=== PATIENT | male | born 1965 | race Caucasian/White ===

== ENCOUNTER 2022-11-15 19:21 | Emergency (ER) | payer SELFPAY ==
--- NOTE | 2022-11-15 19:22 | ECG_ITS ---
APPROVED REPORT Exam: Resting ECG HR:102 bpm ECG Measurements Heart Rate 102 AXES MI 119 P 72 QRSd 97 QRS 75 QT 317 T 73 QTc 376 Conclusion SINUS TACHYCARDIA WITH SHORT MI INTERVAL NONSPECIFIC T-WAVE ABNORMALITY ABNORMAL RHYTHM ECG UNCONFIRMED REPORT Electronically signed by : Kris Klein MD 11/16/2022 09:26:16
[2022-11-15 19:26] VITALS: BP 155/96; PULSE 100; RESP 21; TEMP 37.9; O2SAT 92; BMI 28.3
[2022-11-15 19:30] VITALS: BP 142/92; PULSE 92; RESP 22; O2SAT 92
--- NOTE | 2022-11-15 19:31 | XR_ITS ---
PROCEDURE INFORMATION: Exam: XR Chest Exam date and time: 11/15/2022 7:36 PM Age: 56 years old Clinical indication: Pain; Angina pectoris; Additional info: Cp TECHNIQUE: Imaging protocol: Radiologic exam of the chest. Views: 2 views. COMPARISON: No relevant prior studies available. FINDINGS: Lungs: Flattening of the diaphragms on lateral projection. Interstitial coarsening with streaky opacity at the lateral left lung base. No consolidation. Pleural spaces: No pneumothorax. Heart/Mediastinum: No cardiomegaly. Bones/joints: No acute fracture. IMPRESSION: Interstitial coarsening with streaky opacity at the lateral left lung base which may be atelectatic however subtle pneumonitis should be clinically excluded.
[2022-11-15 19:42] LABS: Coronavirus 19, PCR Not Detected (NotDetected); Influenza A, PCR Not Detected (NotDetected); Influenza B, PCR Not Detected (NotDetected)
--- NOTE | 2022-11-15 19:44 | PC.NURSE ---
Pt gone to RAD via wheelchair
[2022-11-15 19:46] LABS: Basophils % 0.2 % (0.1-2.0); Eosinophils # 0.1 K/mm3 (0.0-0.4); Eosinophils % 0.4 % (0.1-12.0); Hematocrit 45.5 % (42.0-52.0); Hemoglobin 14.6 g/dL (14.1-18.0); Lymphocytes # 1.4 K/mm3 (0.7-4.5); Lymphocytes % 8.7 % (10-50); Mean Corpuscular HGB Conc 32.2 g/dL (31.8-35.4); Mean Corpuscular Hemoglobin 28.2 pg (27.0-31.2); Mean Corpuscular Volume 87.7 fl (80-94); Mean Platelet Volume 7.6 fl (7.4-10.4); Monocytes # 0.9 K/mm3 (0.1-1.0); Monocytes % 5.9 % (1.7-9.3); Neutrophils # 13.3 K/mm3 (1.8-7.8); Neutrophils % 84.8 % (37.0-80.0); Platelet Count 274 K/mm3 (142-424); Red Blood Count 5.18 M/mm3 (4.60-6.20); Red Cell Distribution Width 14.9 % (11.5-17.5); White Blood Count 15.7 K/mm3 (4.8-10.8)
--- NOTE | 2022-11-15 19:47 | PC.NURSE ---
Pt returned from RAD
[2022-11-15 19:48] LABS: Chloride 104 mmol/L (98-107); Potassium 3.7 mmoL/L (3.5-5.1); Sodium 137 mmol/L (136-145)
[2022-11-15 19:50] LABS: Blood Urea Nitrogen 10 mg/dl (9-20); Creatinine Clearance Estimated 111 mL/min (50-200); Estimated Glomerular Filt Rate 88 ml/min (>60); GFR (African American) 106 ML/MIN (>60); MANUAL DIFFERENTIAL MANUAL DIFFERENTIAL (MANUAL DIFF)
--- NOTE | 2022-11-15 19:50 | PC.NURSE ---
RT at BS to administer breathing treatment
[2022-11-15 19:51] LABS: Alanine Aminotransferase 31 U/L (12-78); Albumin Level 4.3 g/dl (3.5-5.0); Albumin/Globulin Ratio 1.1 (1.1-1.8); Alkaline Phosphatase 60 U/L (38-126); Anion Gap 13.7 mEq/L (5-15); Aspartate Amino Transferase 26 U/L (17-59); Bilirubin,Total 0.9 mg/dl (0.2-1.3); Calcium 9.4 mg/dl (8.4-10.2); Carbon Dioxide 23 mmol/L (22.0-30.0); Glucose 117 mg/dl (74-100); Total Protein,Serum 8.3 g/dl (6.3-8.2)
[2022-11-15 19:52] LABS: Lactic Acid 0.7 mmol/L (0.7-2.1)
[2022-11-15 20:00] VITALS: BP 153/98; PULSE 97; RESP 21; O2SAT 95
[2022-11-15 20:05] LABS: Troponin I < 0.01 ng/ml (0.00-0.034)
[2022-11-15 20:05] LABS: Strep Scrn Group A (Rapid) Negative (Negative)
[2022-11-15 20:07] VITALS: PULSE 94
[2022-11-15 20:07] LABS: Eosinophils % 1 % (0-3); Lymphocytes % 10 % (10-50); Monocytes % 2 % (2-9); Neutrophils % 87 % (42-76); Platelet Estimate Normal; RBC Morphology Normal; Total Cells Counted 100
--- NOTE | 2022-11-15 20:10 | HMH.EDGENADL ---
Discharge Plan Disposition Patient Disposition: Home, Self-Care Condition: Good Referrals Follow up/Referrals: Kristyn Valle MD [Primary Care Provider] - See instructions Activity Restrictions/Add. Instructions Additional Instructions/Restrictions: Motrin/Tylenol as needed. Stay well-hydrated. PCP follow-up tomorrow. Clinical Impressions Clinical Impression: Acute viral syndrome Discharge ED Provider: Russell Floyd General Adult HPI General Chief complaint: Chest Pain Stated complaint: CP Time Seen by Provider: 11/15/22 19:50 Mode of Arrival: Ambulatory Source of Information: Patient Limitations: No Limitations Description of Symptoms (Recalled from ER Triage Doc. by RN): pt c/o a productive cough, congestion, N/V/D and L sided chest pain (09/18). pt states this has been ongoing since this am. pt has a hx of an MA from 07/18/22 History of Present Illness HPI narrative: 56yo M presents to the ER secondary to general malaise, body aches. Reports symptoms began last night. Also noted left lower quadrant abdominal pain. Reports nausea with vomiting. Denies diarrhea. Reports his only medical disease is hypertension. States intolerant of p.o. intake prior to arrival. Related Data Allergies Allergy/AdvReac Type Severity Reaction Status Date / Time No Known Allergies Allergy Verified 11/15/22 19:31 [facility] Disclaimer: The information contained in this section may have been updated after the patient was seen, as this information can be updated by other users. Medical History (Updated 11/15/22 @ 20:14 by Russell Floyd DO) Hypertension Social History Smoking Status: Never smoker alcohol intake: never current occupational status: other Travel in the last 8 weeks: None ROS Obtained: Yes Systems reviewed as appropriate & no additional complaints except as documented Physical Exam General General appearance: alert and in no apparent distress Head Head exam: atraumatic Eye Eye exam: Present PERRL ENT ENT exam: Present normal oropharynx Neck Neck exam: Present trachea midline Chest Chest inspection: Present normal inspection Respiratory Respiratory exam: Present normal lung sounds bilaterally; Absent respiratory distress Cardiovascular Cardiovascular exam: Present regular rate, normal rhythm and normal heart sounds Abdominal Exam Abdominal exam: Present soft, tenderness (Diffuse, worse left lower quad) and normal bowel sounds; Absent distention Extremities Exam Extremities exam: Present normal capillary refill; Absent tenderness or edema Neurological Exam Neurological exam: Present alert, oriented X3 and CN II-XII intact Psychiatric Psychiatric exam: Present normal affect Skin Skin exam: Present warm Medical Decision Making Medical Records Medical records reviewed: Yes I reviewed the patient's medical records. [place] Inquiry Pt receiving controlled substance: No Vital Signs: 11/15/22 19:26 11/15/22 20:07 11/15/22 20:07 Temperature 100.2 F H Temperature Source Oral Pulse Rate 94 H 94 H Pulse Rate [Left] 100 H Respiratory Rate 21 Blood Pressure Blood Pressure [Right Arm] 155/96 H Blood Pressure Mean [Right Arm] 115 Blood Pressure Source [Right Arm] Automatic Cuff Blood Pressure Position [Right Arm] Sitting 02 Sat by Pulse Oximetry 92 L Oxygen Delivery Method 11/15/22 19:30 11/15/22 20:00 11/15/22 20:30 Temperature Temperature Source Pulse Rate 92 H 97 H 93 H Pulse Rate [Left] Respiratory Rate 22 21 20 Blood Pressure 142/92 H 153/98 H 152/95 H Blood Pressure [Right Arm] Blood Pressure Mean [Right Arm] Blood Pressure Source [Right Arm] Blood Pressure Position [Right Arm] 02 Sat by Pulse Oximetry 92 L 95 92 L Oxygen Delivery Method Room Air Room Air Room Air 11/15/22 20:56 Temperature 98.9 F Temperature Source Oral Pulse Rate 91 H Pulse Rate [Left] Respiratory Ra
[2022-11-15 20:30] VITALS: BP 152/95; PULSE 93; RESP 20; O2SAT 92
[2022-11-15 20:56] VITALS: BP 132/89; PULSE 91; RESP 19; TEMP 37.2; O2SAT 95
== END 2022-11-15 21:08 | disposition home or self-care (01) ==
PROVIDERS: Emergency Provider Family Medicine; PCP Family Medicine
DX: R07.9 Chest pain, unspecified (principal); R10.32 Left lower quadrant pain; R11.2 Nausea with vomiting, unspecified; R19.7 Diarrhea, unspecified; B34.9 Viral infection, unspecified
CPT/HCPCS: 71046; 80053; 83605; 84484; 85007; 85025; 87040; 87430; 87636; 93005; 96361; 96374; 99285; C9803; U0003; U0005

== ENCOUNTER 2023-01-02 08:27 | Emergency (ER) | payer BC, SELFPAY ==
[2023-01-02] VITALS (13 sets, daily range): BP systolic 106–159; BP diastolic 66–101; PULSE 68–102; RESP 14–29; TEMP 36.7; O2SAT 92–96; BMI 27.6
--- NOTE | 2023-01-02 08:27 | ECG_ITS ---
APPROVED REPORT Exam: Resting ECG HR:95 bpm ECG Measurements Heart Rate 95 AXES ID 122 P 76 QRSd 98 QRS 75 QT 320 T 78 QTc 373 Conclusion SINUS RHYTHM NORMAL ECG UNCONFIRMED REPORT Electronically signed by : Kris Klein MD 01/02/2023 21:14:03
--- NOTE | 2023-01-02 08:30 | PC.NURSE ---
ER MD Payton at
--- NOTE | 2023-01-02 08:33 | XR_ITS ---
FINAL REPORT CLINICAL HISTORY: chest pain, SOA, vomiting COMPARISON: 11/15/2022 FINDINGS: There are scattered coarse linear densities, probably due to scar or other chronic changes. There is no evidence of effusion or pneumothorax. Mediastinum is unremarkable. Heart size is normal. IMPRESSION: No acute abnormality. Reviewed, Interpreted and Dictated by Hugo Calderon MD Transcribed by Lauren Dominguez Authenticated and [facility]
--- NOTE | 2023-01-02 08:38 | HMH.EDGENADL ---
Discharge Plan Disposition Patient Disposition: Home, Self-Care Condition: Good Prescriptions Prescriptions: New ondansetron 4 mg tablet,disintegrating 4 mg PO Q8H 4 Days Qty: 12 0RF methocarbamol 750 mg tablet 750 mg PO Q8H PRN (Reason: pain) Qty: 20 0RF Referrals Follow up/Referrals: Kristyn Valle MD [Primary Care Provider] - See instructions Activity Restrictions/Add. Instructions Additional Instructions/Restrictions: You were evaluated in the emergency department today. Please follow-up closely with your primary care provider over the next 48 hours. local superintendent your prescriptions at the pharmacy and take as needed for pain and nausea. You may also take Tylenol and ibuprofen. Return to the emergency department for any new or worsening symptoms. Clinical Impressions Clinical Impression: Acute chest wall pain Chest pain Qualifiers: Chest pain type: unspecified Qualified Code(s): R07.9 - Chest pain, unspecified Vomiting Qualifiers: Vomiting type: unspecified Stand Alone Forms Stand Alone Forms: Work/School Release Instructions Patient Instructions: DI for Atypical Chest Pain, DI for Vomiting -- Adult Discharge ED Provider: Kandy Payton General Adult HPI General Chief complaint: Chest Pain Stated complaint: chest pain Time Seen by Provider: 01/02/23 08:28 Mode of Arrival: Ambulatory Source of Information: Patient Limitations: No Limitations Description of Symptoms (Recalled from ER Triage Doc. by RN): 57 yo M presents to ED with chest pain/pressure. pt reports symptoms began this am. 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 pt reports having hx of OH but no other health concerns. History of Present Illness HPI narrative: This patient is a 57-year-old male who reports a history of heart attack, hypertension, and COPD presenting to the emergency department for evaluation with concern for chest pain/pressure that is substernal. He reports that he first noticed it this morning after vomiting. Per patient's , her mother at home has also been vomiting. He states that it radiated down his left arm. He tried to go to work and drive a bus, but symptoms became worse. It is worse with movement. He also notes headache, shortness of breath, nausea, and vomiting since onset. He states that this feels similar to prior heart attack. He denies any recent fevers or chills. He denies any belly pain, changes in bowel movements, lower extremity swelling, or rashes. He states that he is on a blood thinner but he cannot remember what it is. He had an 81 mg aspirin this morning. Related Data Previous Rx's Medication Instructions Recorded methocarbamol 750 mg tablet 750 mg PO Q8H PRN pain #20 tabs 01/02/23 ondansetron 4 mg disintegrating 4 mg PO Q8H nausea and vomiting 4 01/02/23 tablet days #12 tabs Allergies Allergy/AdvReac Type Severity Reaction Status Date / Time No Known Allergies Allergy Verified 01/02/23 08:34 [facility] Disclaimer: The information contained in this section may have been updated after the patient was seen, as this information can be updated by other users. Medical History Hypertension Social History Smoking Status: Never smoker alcohol intake: never current occupational status: other Travel in the last 8 weeks: None ROS Obtained: Yes All systems reviewed & no additional complaints except as documented 14 point review of systems obtained and negative except as mentioned in HPI. Physical Exam General General appearance: alert, in no apparent distress and anxious Comment: Anxious appearing, uncomfortable appearing Head Head exam: atraumatic and normocephalic Eye Eye exam: Present normal appearance, PERRL and EOMI ENT ENT exam: Present normal exam and normal oropharynx Neck Neck exam: Pres
[2023-01-02 08:43] LABS: Basophils # 0.1 K/mm3 (0-0.2); Basophils % 0.8 % (0.1-2.0); Eosinophils # 0.3 K/mm3 (0.0-0.4); Eosinophils % 3.5 % (0.1-12.0); Hematocrit 42.8 % (42.0-52.0); Hemoglobin 14.1 g/dL (14.1-18.0); Lymphocytes # 1.7 K/mm3 (0.7-4.5); Lymphocytes % 17.6 % (10-50); Mean Corpuscular HGB Conc 32.8 g/dL (31.8-35.4); Mean Corpuscular Volume 91.3 fl (80-94); Mean Platelet Volume 7.6 fl (7.4-10.4); Monocytes # 0.7 K/mm3 (0.1-1.0); Monocytes % 6.7 % (1.7-9.3); Neutrophils # 6.9 K/mm3 (1.8-7.8); Neutrophils % 71.3 % (37.0-80.0); Platelet Count 322 K/mm3 (142-424); Red Blood Count 4.69 M/mm3 (4.60-6.20); Red Cell Distribution Width 14.3 % (11.5-17.5); White Blood Count 9.7 K/mm3 (4.8-10.8)
[2023-01-02 08:52] LABS: Coronavirus 19, PCR Not Detected (NotDetected); Influenza A, PCR Not Detected (NotDetected); Influenza B, PCR Not Detected (NotDetected)
[2023-01-02 08:57] LABS: Alanine Aminotransferase 40 U/L (12-78); Albumin Level 4.1 g/dl (3.5-5.0); Albumin/Globulin Ratio 1.2 (1.1-1.8); Alkaline Phosphatase 75 U/L (38-126); Anion Gap 9.7 mEq/L (5-15); Aspartate Amino Transferase 35 U/L (17-59); Bilirubin,Total 0.2 mg/dl (0.2-1.3); Blood Urea Nitrogen 11 mg/dl (9-20); Calcium 9.1 mg/dl (8.4-10.2); Carbon Dioxide 26 mmol/L (22.0-30.0); Chloride 107 mmol/L (98-107); Creatinine Clearance Estimated 120 mL/min (50-200); Estimated Glomerular Filt Rate 100 ml/min (>60); GFR (African American) 121 ML/MIN (>60); Globulin 3.5 g/dL (1.3-3.2); Glucose 153 mg/dl (74-100); Lipase 85 U/L (23-300); Potassium 3.7 mmoL/L (3.5-5.1); Sodium 139 mmol/L (136-145); Total Protein,Serum 7.6 g/dl (6.3-8.2)
[2023-01-02 09:03] LABS: D-Dimer 0.73 ug/mL (0.0-0.5)
[2023-01-02 09:16] LABS: T4 (Thyroxine) 7.8 ug/dl (5.53-11.0)
[2023-01-02 09:19] LABS: Troponin I < 0.01 ng/ml (0.00-0.034)
[2023-01-02 09:28] LABS: Thyroid Stimulating Hormone 0.18 uIU/mL (0.465-4.68)
--- NOTE | 2023-01-02 09:46 | ECG_ITS ---
APPROVED REPORT Exam: Resting ECG HR:77 bpm ECG Measurements Heart Rate 77 AXES SD 128 P 64 QRSd 92 QRS 64 QT 359 T 73 QTc 391 Conclusion SINUS RHYTHM NORMAL ECG UNCONFIRMED REPORT Electronically signed by : Kris Klein MD 01/02/2023 21:13:48
[2023-01-02 12:33] LABS: Troponin I < 0.01 ng/ml (0.00-0.034)
== END 2023-01-02 13:02 | disposition home or self-care (01) ==
PROVIDERS: Emergency Provider Emergency Medicine; PCP Family Medicine
DX: R07.89 Other chest pain (principal); R11.2 Nausea with vomiting, unspecified; R06.02 Shortness of breath; I10 Essential (primary) hypertension; J44.9 Chronic obstructive pulmonary disease, unspecified; I25.2 Old myocardial infarction
CPT/HCPCS: 36415; 71045; 80053; 83690; 84436; 84443; 84484; 85025; 85378; 87636; 93005; 96374; 96375; 99285; J2405

== ENCOUNTER 2023-02-20 08:57 | Emergency (ER) | payer BC, SELFPAY ==
[2023-02-20 09:05] VITALS: BP 148/99; PULSE 76; RESP 19; TEMP 36.8; O2SAT 98; BMI 31.6
--- NOTE | 2023-02-20 09:18 | EXP.UTC ---
Discharge Plan Disposition Patient Disposition: Home, Self-Care Condition: Good Prescriptions Prescriptions: New ondansetron 4 mg tablet,disintegrating 4 mg PO Q8H PRN (Reason: nausea and vomiting) Qty: 10 0RF No Action ondansetron 4 mg tablet,disintegrating 4 mg PO Q8H 4 Days Qty: 12 0RF methocarbamol 750 mg tablet 750 mg PO Q8H PRN (Reason: pain) Qty: 20 0RF Referrals Follow up/Referrals: Provider,Referral, MD [Primary Care Provider] - See instructions Activity Restrictions/Add. Instructions Additional Instructions/Restrictions: Drink extra fluids with and between meals. If you have difficulty drinking, try very small amounts of water or suck on ice chips. ? Avoid fruit juices, as these do not replace minerals and can actually increase diarrhea. ? Children and adults can use sports drinks to replenish electrolytes. Younger children and infants should use products formulated for children, like oral rehydration solutions. ? Eat food in small amounts and let your stomach recover. ? Get lots of rest. You may feel tired or weak. ? No greasy or fried foods for the next 24-48 hours BRAT diet Bananas Rice Apples and Berry ? Make sure to drink plenty of liquids ? Return if needed ? Straight to ER if any life threatening symptoms ? Zofran as prescribed ? You was given an outpatient order for diarrhea panel, please collect specimen and bring back to outpatient lab then call back to the [facility] or follow up with family doctor for results ? Follow up with family doctor in the next 48-72 hours if no improvement or any worsening of symptoms Clinical Impressions Clinical Impression: Nausea vomiting and diarrhea Stand Alone Forms Stand Alone Forms: Work/School Release Instructions Patient Instructions: Nausea and Vomiting-Adult, Diarrhea Discharge ED Provider: Jossie Yun [facility] HPI General Stated complaint: stomach pain, weakness Mode of Arrival: Ambulatory Source of Information: Patient Limitations: No Limitations Time Seen by Provider: 02/20/23 09:10 Description of Symptoms (Recalled from Triage Doc. by RN): PATIENT C/O STOMACH CRAMPING, DIARRHEA, VOMITING AND BODY ACHES SINCE YESTERDAY HEENT Symptoms (Recalled from RN notes): No Resp Symptoms (Recalled from RN notes): No Skin Symptoms (Recalled from RN notes): No MS Symptoms (Recalled from RN notes): No Functional Status (Recalled from RN notes): WNL History of Present Illness Provider Complaint: Patient states that yesterday evening he started with N/V/D States that this morning he was feeling achy but thinks it may have been from vomiting and he was unable to go to work States that he wanted to get something for the nausea Related Data Previous Rx's Medication Instructions Recorded methocarbamol 750 mg tablet 750 mg PO Q8H PRN pain #20 tabs 01/02/23 ondansetron 4 mg disintegrating 4 mg PO Q8H nausea and vomiting 4 01/02/23 tablet days #12 tabs ondansetron 4 mg disintegrating 4 mg PO Q8H PRN nausea and 02/20/23 tablet vomiting #10 tabs Allergies Allergy/AdvReac Type Severity Reaction Status Date / Time No Known Allergies Allergy Verified 01/02/23 08:34 Worker's Comp Is this a Worker's Comp case?: No [facility] Disclaimer: The information contained in this section may have been updated after the patient was seen, as this information can be updated by other users. Medical History (Updated 02/20/23 @ 09:25 by Jossie Yun APRN) Asthma COPD (chronic obstructive pulmonary disease) History of heart attack Hypertension Surgical History (Updated 02/20/23 @ 09:11 by Raisa Fitzgerald RN) History of cholecystectomy Social History Smoking Status: Never smoker alcohol intake: never current occupational status: other Travel in the last 8 weeks: None ROS Obtain
[2023-02-20 09:27] VITALS: BP 148/99; PULSE 76; RESP 19; TEMP 36.8; O2SAT 98
== END 2023-02-20 09:29 | disposition home or self-care (01) ==
PROVIDERS: Emergency Provider Nurse Practitioner
DX: R11.2 Nausea with vomiting, unspecified (principal); R19.7 Diarrhea, unspecified; J44.9 Chronic obstructive pulmonary disease, unspecified; I10 Essential (primary) hypertension
CPT/HCPCS: 99212; 99214; G0463

== ENCOUNTER 2023-02-21 14:15 | Emergency (ER) | payer BC, SELFPAY ==
--- NOTE | 2023-02-21 14:33 | HMH.EDGENADL ---
Discharge Plan Disposition Patient Disposition: Home, Self-Care Condition: Good Prescriptions Prescriptions: New prednisone 50 mg tablet 50 mg PO DAILY 5 Days Qty: 5 0RF ondansetron 4 mg tablet,disintegrating 4 mg PO Q8H PRN (Reason: nausea and vomiting) 4 Days Qty: 12 0RF azithromycin [Zithromax TRI-LAKSHMI] 500 mg tablet 500 mg PO DAILY 3 Days Qty: 3 0RF amoxicillin 500 mg tablet 500 mg PO TID 10 Days Qty: 30 0RF No Action ondansetron 4 mg tablet,disintegrating 4 mg PO Q8H 4 Days Qty: 12 0RF methocarbamol 750 mg tablet 750 mg PO Q8H PRN (Reason: pain) Qty: 20 0RF ondansetron 4 mg tablet,disintegrating 4 mg PO Q8H PRN (Reason: nausea and vomiting) Qty: 10 0RF Referrals Follow up/Referrals: Kristyn Valle MD [Primary Care Provider] - See instructions Activity Restrictions/Add. Instructions Additional Instructions/Restrictions: You were evaluated in the emergency department today. Please product picker your prescriptions at the pharmacy and take them as prescribed. Take Tylenol and ibuprofen at home as needed for pain. Return to the emergency department for new or worsening symptoms. Clinical Impressions Clinical Impression: Acute viral syndrome, Nausea vomiting and diarrhea, Acute exacerbation of chronic obstructive pulmonary disease Stand Alone Forms Stand Alone Forms: Work/School Release Instructions Patient Instructions: DI for Chronic Obstructive Pulmonary Disease, DI for Viral Gastroenteritis -- Adult, DI for Vomiting -- Adult Discharge ED Provider: Kandy Payton General Adult HPI <Alejandro Shafer MD - Last Filed: 02/21/23 15:09> General Chief complaint: Abdominal Pain Stated complaint: can't eat, vomiting,headache,weak Time Seen by Provider: 02/21/23 14:19 History of Present Illness HPI narrative: 57-year-old male history of COPD presenting with shortness of breath and vomiting. Patient states he has been vomiting for about 2 days. Keeping down fluids, but very little. Nonbloody, nonbilious vomiting, still having bowel movements, no blood in stool. Last bowel movement today, normal for him, still passing flatus. No fevers or chills was seen 1 day prior to arrival with no acute findings. Sent home on Zofran and has not vomited since. Just stating that he feels gross, and wants to feel better. Related Data Previous Rx's Medication Instructions Recorded methocarbamol 750 mg tablet 750 mg PO Q8H PRN pain #20 tabs 01/02/23 ondansetron 4 mg disintegrating 4 mg PO Q8H nausea and vomiting 4 01/02/23 tablet days #12 tabs ondansetron 4 mg disintegrating 4 mg PO Q8H PRN nausea and 02/20/23 tablet vomiting #10 tabs amoxicillin 500 mg tablet 500 mg PO TID 10 days #30 tabs 02/21/23 azithromycin 500 mg tablet 500 mg PO DAILY 3 days #3 tabs 02/21/23 (Zithromax TRI-LAKSHMI) ondansetron 4 mg disintegrating 4 mg PO Q8H PRN nausea and 02/21/23 tablet vomiting 4 days #12 tabs prednisone 50 mg tablet 50 mg PO DAILY 5 days #5 tabs 02/21/23 Allergies Allergy/AdvReac Type Severity Reaction Status Date / Time No Known Allergies Allergy Verified 01/02/23 08:34 PFSH <Alejandro Shafer MD - Last Filed: 02/21/23 15:09> PFS Disclaimer: The information contained in this section may have been updated after the patient was seen, as this information can be updated by other users. Medical History (Updated 02/21/23 @ 16:06 by Kandy Payton DO) Asthma COPD (chronic obstructive pulmonary disease) History of heart attack Hypertension Surgical History (Updated 02/20/23 @ 09:11 by Raisa Fitzgerald RN) History of cholecystectomy Social History Smoking Status: Former smoker alcohol intake: never current occupational status: other Travel in the last 8 weeks: None <Alejandro Shafer MD - Last Filed: 02/21/23 15:09> ROS Obtained: Yes All systems reviewed & no additional complaints except as documented Physical
--- NOTE | 2023-02-21 14:34 | XR_ITS ---
FINAL REPORT CLINICAL HISTORY: vomiting, wheezing COMPARISON: 01/02/2023 FINDINGS: A single portable view of the chest was obtained. The heart size and pulmonary vascularity are within normal limits. The mediastinum is within normal limits. There is mild bibasilar atelectasis. Bilateral pulmonary opacities are worrisome for bilateral pneumonia. The bony thorax is intact. IMPRESSION: Bilateral pulmonary opacities worrisome for bilateral pneumonia. Bibasilar atelectasis. Reviewed, Interpreted and Dictated by Ari Hines III, MD Transcribed by Cassandra Yi Authenticated and [facility]
--- NOTE | 2023-02-21 14:35 | ECG_ITS ---
APPROVED REPORT Exam: Resting ECG HR:78 bpm ECG Measurements Heart Rate 78 AXES NV 132 P 56 QRSd 92 QRS 60 QT 378 T 71 QTc 411 Conclusion SINUS RHYTHM NORMAL ECG UNCONFIRMED REPORT Electronically signed by : Kris Klein MD 02/23/2023 16:07:28
--- NOTE | 2023-02-21 14:41 | PC.NURSE ---
rad at BS for portable xray
--- NOTE | 2023-02-21 14:41 | PC.NURSE ---
notified RT of vbg order
[2023-02-21 14:42] VITALS: BP 155/104; PULSE 82; RESP 20; TEMP 36.6; O2SAT 95; BMI 29.6
[2023-02-21 14:46] LABS: Basophils # 0.1 K/mm3 (0-0.2); Basophils % 1.2 % (0.1-2.0); Eosinophils # 0.3 K/mm3 (0.0-0.4); Eosinophils % 3.9 % (0.1-12.0); Hematocrit 47.3 % (42.0-52.0); Hemoglobin 15.2 g/dL (14.1-18.0); Lymphocytes # 2.1 K/mm3 (0.7-4.5); Lymphocytes % 25.8 % (10-50); Mean Corpuscular HGB Conc 32.1 g/dL (31.8-35.4); Mean Corpuscular Hemoglobin 28.8 pg (27.0-31.2); Mean Corpuscular Volume 89.7 fl (80-94); Mean Platelet Volume 7.6 fl (7.4-10.4); Monocytes # 0.7 K/mm3 (0.1-1.0); Monocytes % 8.3 % (1.7-9.3); Neutrophils # 4.9 K/mm3 (1.8-7.8); Neutrophils % 60.8 % (37.0-80.0); Platelet Count 355 K/mm3 (142-424); Red Blood Count 5.27 M/mm3 (4.60-6.20); Red Cell Distribution Width 13.4 % (11.5-17.5); White Blood Count 8.1 K/mm3 (4.8-10.8)
[2023-02-21 14:47] LABS: VBG Base Excess 0.7 mmol/L (-2.4-2.3); VBG HCO3 25.1 mmol/L (23-30); VBG Oxygen Saturation 97.9 % (50-70); VBG PCO2 38.9 mmol/L (35-51); VBG PH 7.43 mmol/L (7.31-7.41); VBG PO2 96.6 mmol/L (28-40); VBG Total CO2 26.3 mmol/L (23-27)
[2023-02-21 14:48] LABS: Chloride 104 mmol/L (98-107); Potassium 3.8 mmoL/L (3.5-5.1); Sodium 141 mmol/L (136-145)
[2023-02-21 14:50] LABS: Blood Urea Nitrogen 4 mg/dl (9-20); Creatinine Clearance Estimated 147 mL/min (50-200); Estimated Glomerular Filt Rate 117 ml/min (>60); GFR (African American) 141 ML/MIN (>60)
[2023-02-21 14:51] LABS: Alanine Aminotransferase 39 U/L (12-78); Albumin Level 4.1 g/dl (3.5-5.0); Albumin/Globulin Ratio 1.1 (1.1-1.8); Alkaline Phosphatase 92 U/L (38-126); Anion Gap 13.8 mEq/L (5-15); Aspartate Amino Transferase 45 U/L (17-59); Bilirubin,Total 0.5 mg/dl (0.2-1.3); Calcium 9.3 mg/dl (8.4-10.2); Carbon Dioxide 27 mmol/L (22.0-30.0); Globulin 3.9 g/dL (1.3-3.2); Glucose 112 mg/dl (74-100); Lipase 65 U/L (23-300)
[2023-02-21 15:00] VITALS: BP 141/91; PULSE 71; RESP 20; O2SAT 94
[2023-02-21 15:30] VITALS: BP 153/91; PULSE 75; RESP 18; O2SAT 95
--- NOTE | 2023-02-21 15:33 | PC.NURSE ---
provided pt with Gatorade for PO challenge per Dr Payton request.
[2023-02-21 16:42] VITALS: BP 158/87; PULSE 78; RESP 20; TEMP 36.9; O2SAT 96
== END 2023-02-21 16:45 | disposition home or self-care (01) ==
PROVIDERS: Emergency Medicine; Emergency Provider Emergency Medicine; PCP Family Medicine
DX: R06.02 Shortness of breath (principal); R11.2 Nausea with vomiting, unspecified; B34.9 Viral infection, unspecified; J44.1 Chronic obstructive pulmonary disease with (acute) exacerbation; I10 Essential (primary) hypertension; I25.2 Old myocardial infarction; Z87.891 Personal history of nicotine dependence
CPT/HCPCS: 71045; 80053; 82803; 83690; 85025; 93005; 96361; 96374; 96375; 99285; J0131; J2405

== ENCOUNTER 2023-02-23 12:05 | Emergency (ER) | payer BC, SELFPAY ==
[2023-02-23 12:06] VITALS: BP 154/104; PULSE 75; RESP 20; TEMP 36.6; O2SAT 95; BMI 28.9
--- NOTE | 2023-02-23 12:06 | ECG_ITS ---
APPROVED REPORT Exam: Resting ECG HR:70 bpm ECG Measurements Heart Rate 70 AXES NH 126 P 75 QRSd 91 QRS 67 QT 357 T 75 QTc 379 Conclusion SINUS RHYTHM NORMAL ECG UNCONFIRMED REPORT Electronically signed by : Kris Klein MD 02/23/2023 15:53:03
--- NOTE | 2023-02-23 12:14 | PC.NURSE ---
dr bravo at bedside
--- NOTE | 2023-02-23 12:19 | XR_ITS ---
FINAL REPORT CLINICAL HISTORY: dyspnea COMPARISON: 02/21/2023 FINDINGS: SINGLE-VIEW CHEST The heart size is normal. The mediastinum is normal. There is stable bibasilar atelectasis or scar. There is no pneumothorax. IMPRESSION: Stable bibasilar atelectasis or scar. Reviewed, Interpreted and Dictated by Ari Hines III, MD Transcribed by Lauren Dominguez Authenticated and [facility]
--- NOTE | 2023-02-23 12:21 | HMH.EDGENADL ---
Discharge Plan Disposition Patient Disposition: Home, Self-Care Prescriptions Prescriptions: New ondansetron 4 mg tablet,disintegrating 4 mg PO Q6H PRN (Reason: nausea and vomiting) 5 Days Qty: 20 0RF No Action ondansetron 4 mg tablet,disintegrating 4 mg PO Q8H 4 Days Qty: 12 0RF methocarbamol 750 mg tablet 750 mg PO Q8H PRN (Reason: pain) Qty: 20 0RF ondansetron 4 mg tablet,disintegrating 4 mg PO Q8H PRN (Reason: nausea and vomiting) Qty: 10 0RF prednisone 50 mg tablet 50 mg PO DAILY 5 Days Qty: 5 0RF ondansetron 4 mg tablet,disintegrating 4 mg PO Q8H PRN (Reason: nausea and vomiting) 4 Days Qty: 12 0RF azithromycin [Zithromax TRI-LAKSHMI] 500 mg tablet 500 mg PO DAILY 3 Days Qty: 3 0RF amoxicillin 500 mg tablet 500 mg PO TID 10 Days Qty: 30 0RF Referrals Follow up/Referrals: Junior Lua MD [Staff Physician] - See instructions Clinical Impressions Clinical Impression: Atypical chest pain, Nausea vomiting and diarrhea Discharge ED Provider: Denise Giles General Adult HPI General Chief complaint: Chest Pain Stated complaint: chest pain Time Seen by Provider: 02/23/23 12:12 Mode of Arrival: Ambulatory Source of Information: Patient Limitations: No Limitations Description of Symptoms (Recalled from ER Triage Doc. by RN): PT REPORTS LEFT SIDED CHEST PAIN THAT RADIATES TO LEFT ARM. C/O SHORTNESS OF BREATH. RECENTLY SEEN AT THIS ED FOR GUT ISSUES PT REPORTS NOT FEELING WELL FOR A FEW DAYS C/O BODYACHES, REPORTS SYMPTOMS WORSE THAN THE OTHER DAY History of Present Illness HPI narrative: 57-year-old male here with chest pain. States that he has had multiple heart attacks in the past but has had several left heart cath without any intervention no stents. Presents today with left anterior chest pain radiating to his left arm nonexertional not associated with diaphoresis or dyspnea. States that preceding this today he had nausea vomiting diarrhea and body aches for several days was actually the UTC yesterday with the symptoms. States that his chest pain worsened over the last 24 hours. He also has had a mild cough and states that they put him on azithromycin and prednisone without any significant improvement. Related Data Previous Rx's Medication Instructions Recorded methocarbamol 750 mg tablet 750 mg PO Q8H PRN pain #20 tabs 01/02/23 ondansetron 4 mg disintegrating 4 mg PO Q8H nausea and vomiting 4 01/02/23 tablet days #12 tabs ondansetron 4 mg disintegrating 4 mg PO Q8H PRN nausea and 02/20/23 tablet vomiting #10 tabs amoxicillin 500 mg tablet 500 mg PO TID 10 days #30 tabs 02/21/23 azithromycin 500 mg tablet 500 mg PO DAILY 3 days #3 tabs 02/21/23 (Zithromax TRI-LAKSHMI) ondansetron 4 mg disintegrating 4 mg PO Q8H PRN nausea and 02/21/23 tablet vomiting 4 days #12 tabs prednisone 50 mg tablet 50 mg PO DAILY 5 days #5 tabs 02/21/23 ondansetron 4 mg disintegrating 4 mg PO Q6H PRN nausea and 02/23/23 tablet vomiting 5 days #20 tabs Allergies Allergy/AdvReac Type Severity Reaction Status Date / Time No Known Allergies Allergy Verified 01/02/23 08:34 [facility] Disclaimer: The information contained in this section may have been updated after the patient was seen, as this information can be updated by other users. Medical History (Updated 02/23/23 @ 12:25 by Denise Giles MD) Asthma COPD (chronic obstructive pulmonary disease) History of heart attack Hypertension Surgical History (Updated 02/20/23 @ 09:11 by Raisa Fitzgerald RN) History of cholecystectomy Social History Smoking Status: Former smoker alcohol intake: never current occupational status: other Travel in the last 8 weeks: None ROS Obtained: Yes All systems reviewed & no additional complaints except as documented Physical Exam General General appearance: alert and in no apparent distress Chest Chest inspection:
--- NOTE | 2023-02-23 12:24 | PC.NURSE ---
PT PLACED ON O2 PER PT REQUEST
[2023-02-23 12:29] LABS: Basophils # 0.1 K/mm3 (0-0.2); Basophils % 0.9 % (0.1-2.0); Eosinophils # 0.3 K/mm3 (0.0-0.4); Hematocrit 46.9 % (42.0-52.0); Lymphocytes # 2.3 K/mm3 (0.7-4.5); Lymphocytes % 20.5 % (10-50); Mean Corpuscular HGB Conc 31.9 g/dL (31.8-35.4); Mean Corpuscular Hemoglobin 28.6 pg (27.0-31.2); Mean Corpuscular Volume 89.8 fl (80-94); Mean Platelet Volume 7.9 fl (7.4-10.4); Monocytes # 0.7 K/mm3 (0.1-1.0); Neutrophils # 7.7 K/mm3 (1.8-7.8); Neutrophils % 69.7 % (37.0-80.0); Platelet Count 347 K/mm3 (142-424); Red Blood Count 5.22 M/mm3 (4.60-6.20); Red Cell Distribution Width 13.6 % (11.5-17.5); White Blood Count 11.1 K/mm3 (4.8-10.8)
[2023-02-23 12:30] VITALS: BP 146/101; PULSE 72; RESP 20; O2SAT 96
--- NOTE | 2023-02-23 12:31 | PC.NURSE ---
RAD at for CXR
--- NOTE | 2023-02-23 12:32 | PC.NURSE ---
XR AT BEDSIDE
[2023-02-23 12:33] LABS: Alanine Aminotransferase 34 U/L (12-78); Albumin Level 4.1 g/dl (3.5-5.0); Alkaline Phosphatase 84 U/L (38-126); Anion Gap 10.9 mEq/L (5-15); Aspartate Amino Transferase 36 U/L (17-59); Bilirubin,Total 0.5 mg/dl (0.2-1.3); Blood Urea Nitrogen 13 mg/dl (9-20); Calcium 8.9 mg/dl (8.4-10.2); Carbon Dioxide 30 mmol/L (22.0-30.0); Chloride 100 mmol/L (98-107); Creatinine Clearance Estimated 130 mL/min (50-200); Estimated Glomerular Filt Rate 100 ml/min (>60); GFR (African American) 121 ML/MIN (>60); Glucose 113 mg/dl (74-100); Potassium 3.9 mmoL/L (3.5-5.1); Sodium 137 mmol/L (136-145); Total Protein,Serum 8.1 g/dl (6.3-8.2)
[2023-02-23 12:38] LABS: D-Dimer 0.84 ug/mL (0.0-0.5)
[2023-02-23 12:48] LABS: Troponin I < 0.01 ng/ml (0.00-0.034)
--- NOTE | 2023-02-23 12:49 | PC.NURSE ---
pt up to bathroom, states having a BM
[2023-02-23 13:01] VITALS: BP 157/96; PULSE 60; O2SAT 95
--- NOTE | 2023-02-23 13:14 | PC.NURSE ---
ROUNDED ON PT, C/O NO PAIN RELIEF. MD NOTIFIED. WARM BLANKET PROVIDED. FAMILY AT BEDSIDE
[2023-02-23 13:30] VITALS: BP 158/95; PULSE 63; O2SAT 97
[2023-02-23 13:38] LABS: Coronavirus 19, PCR Not Detected (NotDetected); Influenza A, PCR Not Detected (NotDetected); Influenza B, PCR Not Detected (NotDetected)
[2023-02-23 14:11] VITALS: BP 160/100; PULSE 63; RESP 18; TEMP 36.6; O2SAT 96
== END 2023-02-23 14:11 | disposition home or self-care (01) ==
PROVIDERS: Emergency Provider Student in an Organized Health Care Education/Training Program
DX: R07.89 Other chest pain (principal); M79.602 Pain in left arm; R11.2 Nausea with vomiting, unspecified; R19.7 Diarrhea, unspecified; J44.9 Chronic obstructive pulmonary disease, unspecified; I10 Essential (primary) hypertension; I25.2 Old myocardial infarction; Z87.891 Personal history of nicotine dependence
CPT/HCPCS: 71045; 80053; 84484; 85025; 85378; 87636; 93005; 96361; 96374; 96375; 99285; J2405

== ENCOUNTER 2023-03-16 10:51 | Emergency (ER) | payer BC, SELFPAY ==
[2023-03-16 10:51] VITALS: BP 148/96; PULSE 61; RESP 21; TEMP 36.9; O2SAT 93; BMI 31.6
--- NOTE | 2023-03-16 11:20 | EXP.UTC ---
Discharge Plan Disposition Patient Disposition: Home, Self-Care Condition: Good Prescriptions Prescriptions: New benzonatate [benzonatate] 100 mg capsule 100 mg PO TIDP PRN (Reason: Cough) Qty: 30 0RF methylprednisolone 4 mg Tablets,Dose Pack 4 mg PO DIRECTED Qty: 21 0RF amoxicillin-pot clavulanate 875-125 mg Tablet 1 tab PO Q12H Qty: 20 0RF ibuprofen [IBU] 800 mg tablet 800 mg PO Q8HP PRN (Reason: Moderate Pain) Qty: 30 0RF No Action amoxicillin 500 mg tablet 500 mg PO TID 10 Days Qty: 30 0RF fenofibrate nanocrystallized 145 mg tablet 145 mg PO DAILY Patient Comments: TAKE 1 TABLET BY MOUTH ONCE DAILY Trelegy Ellipta 200-62.5-25 mcg blister with device 1 inh INHALATION DAILY Patient Comments: INHALE 1 PUFF BY MOUTH ONCE DAILY Referrals Follow up/Referrals: Kristyn Valle MD [Primary Care Provider] - See instructions Activity Restrictions/Add. Instructions Additional Instructions/Restrictions: Drink plenty of fluids. Take tylenol or ibuprofen for pain or fever. Take the medications as directed. Follow up with your regular doctor. GO TO THE ER FOR ANY WORSENING SYMPTOMS Clinical Impressions Clinical Impression: COPD exacerbation Stand Alone Forms Stand Alone Forms: Work/School Release Instructions Patient Instructions: DI for Chronic Obstructive Pulmonary Disease Discharge ED Provider: Jony Wells [facility] General Stated complaint: nausea, Lt side pain, no accident Time Seen by Provider: 03/16/23 11:20 History of Present Illness Provider Complaint: He states that for the past 5 days he has had chest congestion, cough, and sinus congestion. Related Data Home Medications Medication Instructions Recorded Confirmed fenofibrate nanocrystallized 145 145 mg PO DAILY . 03/16/23 03/16/23 mg tablet fluticasone fur. 200 mcg-umeclid 1 inh inhalation DAILY Copd 03/16/23 03/16/23 62.5 mcg-vilant 25 mcg inhalat.powder (Trelegy Ellipta) Previous Rx's Medication Instructions Recorded amoxicillin 500 mg tablet 500 mg PO TID 10 days #30 tabs 02/21/23 amoxicillin 875 mg-potassium 1 tab PO Q12H #20 tabs 03/16/23 clavulanate 125 mg tablet benzonatate 100 mg capsule 100 mg PO TIDP PRN Cough #30 caps 03/16/23 ibuprofen 800 mg tablet (IBU) 800 mg PO Q8HP PRN Moderate Pain 03/16/23 #30 tabs methylprednisolone 4 mg tablets in 4 mg PO DIRECTED #21 tabs 03/16/23 a dose pack Allergies Allergy/AdvReac Type Severity Reaction Status Date / Time No Known Allergies Allergy Verified 03/16/23 11:38 [facility] Disclaimer: The information contained in this section may have been updated after the patient was seen, as this information can be updated by other users. Medical History (Updated 03/16/23 @ 11:43 by Jony Wells APRN) Asthma COPD (chronic obstructive pulmonary disease) History of heart attack Hypertension Surgical History History of cholecystectomy Social History Smoking Status: Former smoker alcohol intake: never current occupational status: other Travel in the last 8 weeks: None ROS Obtained: Yes All systems reviewed & no additional complaints except as documented Constitutional Constitutional: Reports poor appetite Eyes Eyes: Reports system reviewed and no additional complaints, except as documented ENT Ears, Nose, Mouth, and Throat: Reports as per HPI Cardiovascular Cardiovascular: Reports system reviewed and no additional complaints, except as documented and Denies chest pain Respiratory Respiratory: Denies shortness of breath, Denies chest congestion, Reports cough, Denies stridor and Denies wheezing Gastrointestinal Gastrointestingal: Reports system reviewed and no additional complaints, except as documented; Denies abdominal pain, diarrhea or vomiting Musculoskeletal Musculoskeletal:
[2023-03-16 12:00] VITALS: BP 148/96; PULSE 61; RESP 18; TEMP 36.9; O2SAT 93
== END 2023-03-16 12:00 | disposition home or self-care (01) ==
PROVIDERS: Emergency Provider Nurse Practitioner Family; PCP Family Medicine
DX: J44.1 Chronic obstructive pulmonary disease with (acute) exacerbation (principal); I10 Essential (primary) hypertension; Z86.74 Personal history of sudden cardiac arrest
CPT/HCPCS: 87635; 99212; 99214; G0463

== ENCOUNTER 2023-03-18 17:03 | Inpatient (IN) | payer BC, SELFPAY ==
[2023-03-18] VITALS (9 sets, daily range): BP systolic 128–164; BP diastolic 86–95; PULSE 78–113; RESP 18–21; TEMP 36.5–36.9; O2SAT 90–98; BMI 31.4; BMI 31.7
--- NOTE | 2023-03-18 17:09 | ECG_ITS ---
APPROVED REPORT Exam: Resting ECG HR:100 bpm ECG Measurements Heart Rate 100 AXES RI 126 P -17 QRSd 92 QRS -16 QT 307 T -24 QTc 364 Conclusion SINUS TACHYCARDIA WITH FREQUENT SUPRAVENTRICULAR PREMATURE COMPLEXES VOLTAGE CRITERIA FOR LVH [MEETS CRITERIA IN ONE OF: R(aVL), S(V1), R(V5), R(V5/V6)+S(V1)] INFERIOR MYOCARDIAL INFARCTION , OF INDETERMINATE AGE [40+ ms Q WAVE AND/OR ST/T ABNORMALITY IN II/aVF] ABNORMAL ECG UNCONFIRMED REPORT Electronically signed by : Kris Klein MD 03/19/2023 19:40:33
--- NOTE | 2023-03-18 17:24 | PC.NURSE ---
Dr Giles at bedside
--- NOTE | 2023-03-18 17:25 | PC.NURSE ---
Dr Giles at BS
--- NOTE | 2023-03-18 17:30 | XR_ITS ---
PROCEDURE INFORMATION: Exam: XR Chest Exam date and time: 03/18/2023 6:05 PM Age: 57 years old Clinical indication: Dyspnea TECHNIQUE: Imaging protocol: Radiologic exam of the chest. Views: 1 view. COMPARISON: CR XR CHEST PORTABLE 02/23/2023 12:45 PM FINDINGS: Lungs: Stable mild diffuse pulmonary vascular and interstitial prominence. Pleural spaces: Unremarkable. No pleural effusion. No pneumothorax. Heart/Mediastinum: Unremarkable. No cardiomegaly. Bones/joints: Unremarkable. IMPRESSION: Mild pulmonary vascular congestion
--- NOTE | 2023-03-18 17:31 | HMH.EDGENADL ---
Discharge Plan Disposition Patient Disposition: Admitted Chief Complaint: Shortness of Breath/Dyspnea Prescriptions Prescriptions: No Action sucralfate [Carafate] 1 gram tablet 1 g PO DAILY Patient Comments: TAKE 1 TABLET BY MOUTH THREE TIMES DAILY ferrous sulfate 324 mg (65 mg iron) tablet,delayed release (DR/EC) 324 mg PO BID Patient Comments: TAKE 1 TABLET BY MOUTH TWICE DAILY WITH MEALS Trelegy Ellipta 200-62.5-25 mcg blister with device 1 inh INHALATION DAILY Patient Comments: INHALE 1 PUFF BY MOUTH ONCE DAILY fenofibrate nanocrystallized 145 mg tablet 145 mg PO DAILY Patient Comments: TAKE 1 TABLET BY MOUTH ONCE DAILY Trelegy Ellipta 200-62.5-25 mcg blister with device 1 inh INHALATION DAILY Patient Comments: INHALE 1 PUFF BY MOUTH ONCE DAILY benzonatate [benzonatate] 100 mg capsule 100 mg PO TIDP PRN (Reason: Cough) Qty: 30 0RF methylprednisolone 4 mg Tablets,Dose Pack 4 mg PO DIRECTED Qty: 21 0RF ibuprofen [IBU] 800 mg tablet 800 mg PO Q8HP PRN (Reason: Moderate Pain) Qty: 30 0RF Referrals Follow up/Referrals: Kristyn Valle MD [Primary Care Provider] - See instructions Clinical Impressions Clinical Impression: Acute exacerbation of chronic obstructive pulmonary disease Discharge ED Provider: Denise Giles General Adult HPI General Chief complaint: Shortness of Breath/Dyspnea Stated complaint: SOA Time Seen by Provider: 03/18/23 17:24 Mode of Arrival: Wheelchair Source of Information: Patient Limitations: No Limitations Description of Symptoms (Recalled from ER Triage Doc. by RN): Pt reports SOA worsening since sunday. Pt reports seen in [facility] on sunday. Pt reports hx of of COPD, uses trelogy inhaler at home. History of Present Illness HPI narrative: Patient is a 57-year-old with a history of COPD presenting today with 2 weeks of slowly worsening cough shortness of breath and wheezing. States that this is his third ED visit he started amoxicillin and steroids a few days ago but states that he is only getting worse. He does not have any nebulized treatments at home has an inhaler and has not had any significant improvement since that time. Denies any chest pain denies any lower extremity swelling denies any hemoptysis fevers or chills. Related Data Home Medications Medication Instructions Recorded Confirmed fenofibrate nanocrystallized 145 145 mg PO DAILY . 03/16/23 03/18/23 mg tablet fluticasone fur. 200 mcg-umeclid 1 inh inhalation DAILY Copd 03/16/23 03/18/23 62.5 mcg-vilant 25 mcg inhalat.powder (Trelegy Ellipta) ferrous sulfate 324 mg (65 mg 324 mg PO BID 03/18/23 03/18/23 iron) tablet,delayed release fluticasone fur. 200 mcg-umeclid 1 inh inhalation DAILY 03/18/23 03/18/23 62.5 mcg-vilant 25 mcg inhalat.powder (Trelegy Ellipta) sucralfate 1 gram tablet (Carafate) 1 g PO DAILY 03/18/23 03/18/23 Previous Rx's Medication Instructions Recorded benzonatate 100 mg capsule 100 mg PO TIDP PRN Cough #30 caps 03/16/23 ibuprofen 800 mg tablet (IBU) 800 mg PO Q8HP PRN Moderate Pain 03/16/23 #30 tabs methylprednisolone 4 mg tablets in 4 mg PO DIRECTED #21 tabs 03/16/23 a dose pack Allergies Allergy/AdvReac Type Severity Reaction Status Date / Time No Known Allergies Allergy Verified 03/16/23 11:38 [facility] Disclaimer: The information contained in this section may have been updated after the patient was seen, as this information can be updated by other users. Medical History (Updated 03/18/23 @ 17:34 by Denise Giles MD) Asthma COPD (chronic obstructive pulmonary disease) History of heart attack Hypertension Surgical History History of cholecystectomy Social History Smoking Status: Former smoker alcohol intake: never current occupational status: other Travel i
--- NOTE | 2023-03-18 17:39 | PC.NURSE ---
Notified RT of VBG order
[2023-03-18 17:41] LABS: Basophils % 0.1 % (0.1-2.0); Eosinophils % 0.3 % (0.1-12.0); Hematocrit 47.3 % (42.0-52.0); Hemoglobin 15.3 g/dL (14.1-18.0); Lymphocytes # 0.7 K/mm3 (0.7-4.5); Lymphocytes % 6.5 % (10-50); Mean Corpuscular HGB Conc 32.3 g/dL (31.8-35.4); Mean Corpuscular Hemoglobin 28.7 pg (27.0-31.2); Mean Platelet Volume 8.1 fl (7.4-10.4); Monocytes # 0.7 K/mm3 (0.1-1.0); Monocytes % 6.3 % (1.7-9.3); Neutrophils # 9.4 K/mm3 (1.8-7.8); Neutrophils % 86.8 % (37.0-80.0); Platelet Count 341 K/mm3 (142-424); Red Blood Count 5.32 M/mm3 (4.60-6.20); Red Cell Distribution Width 13.7 % (11.5-17.5); White Blood Count 10.9 K/mm3 (4.8-10.8)
[2023-03-18 17:42] LABS: MANUAL DIFFERENTIAL MANUAL DIFFERENTIAL (MANUAL DIFF)
[2023-03-18 17:46] LABS: VBG Base Excess -2.8 mmol/L (-2.4-2.3); VBG HCO3 22.3 mmol/L (23-30); VBG Oxygen Saturation 94.3 % (50-70); VBG PCO2 38.2 mmol/L (35-51); VBG PH 7.38 mmol/L (7.31-7.41); VBG PO2 71.4 mmol/L (28-40); VBG Total CO2 23.5 mmol/L (23-27)
--- NOTE | 2023-03-18 17:49 | PC.NURSE ---
rad at BS for portable xray
[2023-03-18 17:50] LABS: Alanine Aminotransferase 38 U/L (12-78); Albumin Level 4.2 g/dl (3.5-5.0); Alkaline Phosphatase 80 U/L (38-126); Aspartate Amino Transferase 38 U/L (17-59); Bilirubin,Total 0.5 mg/dl (0.2-1.3); Blood Urea Nitrogen 19 mg/dl (9-20); Calcium 9.3 mg/dl (8.4-10.2); Carbon Dioxide 27 mmol/L (22.0-30.0); Chloride 104 mmol/L (98-107); Creatinine Clearance Estimated 156 mL/min (50-200); Estimated Glomerular Filt Rate 117 ml/min (>60); GFR (African American) 141 ML/MIN (>60); Globulin 4.1 g/dL (1.3-3.2); Glucose 129 mg/dl (74-100); Sodium 139 mmol/L (136-145); Total Protein,Serum 8.3 g/dl (6.3-8.2)
[2023-03-18 18:02] LABS: NT Pro Brain Natriuretic Pep. 44.7 pg/mL (0-125); Troponin I < 0.01 ng/ml (0.00-0.034)
[2023-03-18 18:29] LABS: Lymphocytes % 14 % (10-50); Monocytes % 2 % (2-9); Neutrophils % 84 % (42-76); Platelet Estimate Normal; RBC Morphology Normal; Total Cells Counted 100
--- NOTE | 2023-03-18 18:49 | PC.NURSE ---
Rounded on pt. Advised he Just wants to feel better no other needs voiced. Call light within reach.
--- NOTE | 2023-03-18 19:00 | PC.NURSE ---
Pt provided with sandwich, chips, and drink. No other needs voiced. Call light within reach.
--- NOTE | 2023-03-18 19:51 | PC.NURSE ---
Report to Guerita Mejia RN; Awaiting transport
--- NOTE | 2023-03-18 20:07 | PC.NURSE ---
Patient arrived to floor via wheelchair at 20:05.
--- NOTE | 2023-03-18 20:08 | EXP.HP ---
History of Present Illness *Admission Date: 03/18/23 *Reason for visit:: SOB *History of present illness: This is a 57-year-old with a history of COPD, HTN, HLD, GERD presented with 2 weeks referred of slowly worsening cough shortness of breath and wheezing. Patient has been visiting ED and started amoxicillin and steroids a few days ago with no progression of his symptoms. Stated been off nebulizer . Denies any chest pain denies any lower extremity swelling denies any hemoptysis fevers or chills. Admitted for treatment. [facility] Disclaimer: The information contained in this section may have been updated after the patient was seen, as this information can be updated by other users. Medical History (Updated 03/19/23 @ 10:19 by Krista Grissom MD) Acute respiratory failure with hypoxia Asthma Atelectasis of both lungs COPD (chronic obstructive pulmonary disease) History of heart attack Hyperlipemia Hypertension Surgical History (Updated 03/18/23 @ 20:39 by Guerita Escoto RN) H/O hernia repair History of cholecystectomy Family History (Updated 03/18/23 @ 20:39 by Guerita Escoto RN) Family history of myocardial infarction Brother Mother Father Social History (Updated 03/18/23 @ 20:39 by Guerita Escoto RN) Smoking Status: Former smoker alcohol intake: never current occupational status: employed and other Travel in the last 8 weeks: None Review of Systems Review of Systems Review of systems:: pertinent systems reviewed and negative unless documented below Meds Home Medications and Allergies Home Medications Medication Instructions Recorded Confirmed Type benzonatate 100 mg capsule 100 mg PO TIDP PRN Cough #30 caps 03/16/23 03/18/23 Rx fenofibrate nanocrystallized 145 145 mg PO DAILY Triglycerides 03/16/23 03/18/23 History mg tablet fluticasone fur. 200 mcg-umeclid 1 inh inhalation DAILY Breathing 03/16/23 03/18/23 History 62.5 mcg-vilant 25 mcg Problems inhalat.powder (Trelegy Ellipta) ibuprofen 800 mg tablet (IBU) 800 mg PO Q8HP PRN Moderate Pain 03/16/23 03/18/23 Rx #30 tabs methylprednisolone 4 mg tablets in 4 mg PO DIRECTED #21 tabs 03/16/23 03/18/23 Rx a dose pack amlodipine 5 mg tablet 5 mg PO DAILY High Blood Pressure 03/18/23 03/19/23 History carvedilol 12.5 mg tablet 12.5 mg PO BID High Blood Pressure 03/18/23 03/19/23 History ferrous sulfate 324 mg (65 mg 324 mg PO BID Supplement 03/18/23 03/18/23 History iron) tablet,delayed release sucralfate 1 gram tablet (Carafate) 1 g PO TID Acid Reflux 03/18/23 03/19/23 History vitamin B complex 1 cap PO DAILY Supplement 03/18/23 03/19/23 History amoxicillin 875 mg-potassium 1 tab PO BID Infection 03/19/23 03/19/23 History clavulanate 125 mg tablet New Prescriptions to Start Prescriptions: Allergies Allergy/AdvReac Type Severity Reaction Status Date / Time No Known Allergies Allergy Verified 03/16/23 11:38 Exam Data for Last 24 hours Vital signs and Labs for Last 24 Hours: Temp Pulse Resp BP Pulse Ox O2 Del Method 98.4 F 78 20 164/94 H 92 L Nasal Cannula 03/18/23 19:51 03/18/23 19:58 03/18/23 19:51 03/18/23 19:51 03/18/23 19:30 03/18/23 19:51 Laboratory Results - last 24 hr 03/18/23 17:15: WBC 10.9 H, RBC 5.32, Hgb 15.3, Hct 47.3, MCV 89.0, MCH 28.7, MCHC 32.3, RDW 13.7, Plt Count 341, MPV 8.1, Neut % (Auto) 86.8 H, Lymph % (Auto) 6.5 L, [place] % (Auto) 6.3, Eos % (Auto) 0.3, Baso % (Auto) 0.1, Neut # (Auto) 9.4 H, Lymph # (Auto) 0.7, [place] # (Auto) 0.7, Eos # (Auto) 0.0, Baso # (Auto) 0.0, Total Counted 100, Neutrophils % (Manual) 84 H, Lymphocytes % (Manual) 14, Monocytes % (Manual) 2, Platelet Estimate Normal, RBC Morphology Normal, Sodium 139, Potassium 4.0, Chloride 104, Carbon Dioxide 27, Anion Gap 12.0, BUN 19, Creatinine 0.70, Estimated Creat Clear 156, Estimated GFR 117, Est GFR ( Amer) 141, Glucose 129 H, Calcium 9.3, Total Bilirubin 0.5, AST 38, ALT 38, Alkaline Phospha
[2023-03-18 21:25] LABS: Troponin I < 0.01 ng/ml (0.00-0.034)
[2023-03-19] VITALS (8 sets, daily range): BP systolic 119–156; BP diastolic 75–107; PULSE 80–100; RESP 18–20; TEMP 36.5–37.1; O2SAT 89–95; BMI 31.7
[2023-03-19 00:32] LABS: Troponin I < 0.01 ng/ml (0.00-0.034)
--- NOTE | 2023-03-19 04:04 | PC.NURSE ---
Patient has not rested since coming to [facility]. Was admitted for COPD exacerbation, Lung sounds have expritory wheezing throughout, patient has 2lnc PRN ordered has used it since arrival but oxygen stats have maintained in upper 90s. Patient states he does feel anxious. Non-productive cough. PRN meds have been given for generalized pain, headache and cough. No acute changes, VSS
[2023-03-19 06:57] LABS: Basophils % 0.1 % (0.1-2.0); Eosinophils % 0.2 % (0.1-12.0); Hematocrit 44.8 % (42.0-52.0); Hemoglobin 14.5 g/dL (14.1-18.0); Lymphocytes # 0.7 K/mm3 (0.7-4.5); Lymphocytes % 7.5 % (10-50); Mean Corpuscular HGB Conc 32.3 g/dL (31.8-35.4); Mean Corpuscular Hemoglobin 28.9 pg (27.0-31.2); Mean Corpuscular Volume 89.6 fl (80-94); Mean Platelet Volume 7.9 fl (7.4-10.4); Monocytes # 0.7 K/mm3 (0.1-1.0); Neutrophils # 7.4 K/mm3 (1.8-7.8); Neutrophils % 84.1 % (37.0-80.0); Platelet Count 290 K/mm3 (142-424); Red Blood Count 5.01 M/mm3 (4.60-6.20); Red Cell Distribution Width 13.9 % (11.5-17.5); White Blood Count 8.8 K/mm3 (4.8-10.8)
[2023-03-19 07:06] LABS: Chloride 103 mmol/L (98-107)
[2023-03-19 07:07] LABS: Potassium 4.1 mmoL/L (3.5-5.1); Sodium 138 mmol/L (136-145)
[2023-03-19 07:09] LABS: Alanine Aminotransferase 33 U/L (12-78); Aspartate Amino Transferase 40 U/L (17-59); Blood Urea Nitrogen 14 mg/dl (9-20); Creatinine Clearance Estimated 158 mL/min (50-200); Estimated Glomerular Filt Rate 117 ml/min (>60); GFR (African American) 141 ML/MIN (>60)
[2023-03-19 07:10] LABS: Albumin Level 3.7 g/dl (3.5-5.0); Albumin/Globulin Ratio 1.1 (1.1-1.8); Alkaline Phosphatase 73 U/L (38-126); Anion Gap 12.1 mEq/L (5-15); Bilirubin,Total 0.4 mg/dl (0.2-1.3); Calcium 8.5 mg/dl (8.4-10.2); Carbon Dioxide 27 mmol/L (22.0-30.0); Globulin 3.4 g/dL (1.3-3.2); Glucose 110 mg/dl (74-100); Magnesium 1.8 mg/dl (1.6-2.3); Total Protein,Serum 7.1 g/dl (6.3-8.2)
--- NOTE | 2023-03-19 07:48 | HMH.PHAINT1 ---
Pharmacy Intervention Comments: MEDICATION RECONCILIATION COMPLETED ON PATIENT USING EXTERNAL FILL HISTORY FROM PHARMACY AND PATIENT INTERVIEW. -TROY WOLFE, EVELIOD
[2023-03-19 08:22] LABS: Adenovirus,PCR Not Detected (NotDetected); Coronavirus 19, PCR Not Detected (NotDetected); Coronavirus 229E Not Detected (NotDetected); Coronavirus NL63 Not Detected (NotDetected); Coronavirus OC43 Not Detected (NotDetected); Coronovirus HKU1,PCR Not Detected (NotDetected); Influenza A, PCR Not Detected (NotDetected); Influenza AH1, 2009 Not Detected (NotDetected); Influenza AH1, PCR Not Detected (NotDetected); Influenza AH3,PCR Not Detected (NotDetected); Influenza B, PCR Not Detected (NotDetected); Parainfluenza 1, PCR Not Detected (NotDetected); Parainfluenza 2, PCR Not Detected (NotDetected); Parainfluenza 3, PCR Not Detected (NotDetected); Parainfluenza 4, PCR Not Detected (NotDetected); Respiratory Syncytial Virus Not Detected (NotDetected); Rhinovirus/Enterovirus Not Detected (NotDetected)
--- NOTE | 2023-03-19 09:10 | PC.NURSE ---
pts brother jeremy called to check on pt. per pts request, do not give information to pts brother jeremy at this time.
--- NOTE | 2023-03-19 09:36 | EXP.PULM.CON ---
History of Present Illness History of present illness: Mr. Rankin is a 57-year-old male prior smoker as per the patient last smoked around 28 years ago presented to hospital with worsening respiratory distress associated with increasing cough with no worsening productive phlegm. Patient also admits a prior diagnosis of bilateral lung collapse. He admits he is following with cardiology at [facility] and was told his lung function is 20 to 30% predicted. Currently there is trilogy inhaler at home. He is not using any oxygen at baseline. [facility] Disclaimer: The information contained in this section may have been updated after the patient was seen, as this information can be updated by other users. Medical History (Updated 03/19/23 @ 10:19 by Krista Grissom MD) Acute respiratory failure with hypoxia Asthma Atelectasis of both lungs COPD (chronic obstructive pulmonary disease) History of heart attack Hyperlipemia Hypertension Surgical History (Updated 03/18/23 @ 20:39 by Guerita Escoto RN) H/O hernia repair History of cholecystectomy Family History (Updated 03/18/23 @ 20:39 by Guerita Escoto RN) Brother Family history of myocardial infarction Mother Family history of myocardial infarction Father Family history of myocardial infarction Social History (Updated 03/18/23 @ 20:39 by Guerita Escoto RN) Smoking Status: Former smoker alcohol intake: never current occupational status: employed and other Travel in the last 8 weeks: None Review of Systems Constitutional Constitutional: Reports anorexia, Reports body ache(s) and Reports fatigue Eyes Eyes: Denies eye discharge, Denies dry eyes, Denies irritation and Denies itchy eyes ENT Ears, Nose, Mouth, and Throat: Denies epistaxis, Denies facial pain, Denies lip swelling and Denies throat swelling *Cardiovascular Cardiovascular: Reports dyspnea, Reports dyspnea on exertion, Reports leg edema and Reports orthopnea *Respiratory Respiratory: Reports chest congestion, Reports cough, Reports dyspnea, Reports dyspnea on exertion, Denies excessive phlegm production, Denies hemoptysis, Denies pain on inspiration, Denies pain with cough and Reports wheezing *Gastrointestinal Gastrointestinal: Denies abdominal pain, Denies belching and Denies cramping *Musculoskeletal Musculoskeletal: Reports back pain, Reports myalgias and Reports other (No small joint swelling or Pain) Psychiatric Psychiatric: Denies homicidal ideation and Denies suicidal ideation Endocrine Endocrine: Reports fatigue and Denies heat intolerance Hematologic/Lymphatic Hematologic/Lymphatic: Denies easy bleeding and Denies lymphadenopathy Allergic/Immunologic Allergic/Immunologic: Denies itchy eyes, Denies lip swelling, Denies throat swelling and Reports wheezing Pulmonology Exam Inpatient Vital signs and Labs for Last 24 Hours: Temp Pulse Resp BP Pulse Ox O2 Del Method O2 Flow Rate 98.7 F 86 18 156/107 H 92 L Nasal Cannula 2 03/19/23 07:18 03/19/23 07:18 03/19/23 07:18 03/19/23 07:18 03/19/23 07:55 03/19/23 07:55 03/19/23 07:55 Laboratory Results - last 24 hr 03/18/23 17:15: WBC 10.9 H, RBC 5.32, Hgb 15.3, Hct 47.3, MCV 89.0, MCH 28.7, MCHC 32.3, RDW 13.7, Plt Count 341, MPV 8.1, Neut % (Auto) 86.8 H, Lymph % (Auto) 6.5 L, [place] % (Auto) 6.3, Eos % (Auto) 0.3, Baso % (Auto) 0.1, Neut # (Auto) 9.4 H, Lymph # (Auto) 0.7, [place] # (Auto) 0.7, Eos # (Auto) 0.0, Baso # (Auto) 0.0, Total Counted 100, Neutrophils % (Manual) 84 H, Lymphocytes % (Manual) 14, Monocytes % (Manual) 2, Platelet Estimate Normal, RBC Morphology Normal, Sodium 139, Potassium 4.0, Chloride 104, Carbon Dioxide 27, Anion Gap 12.0, BUN 19, Creatinine 0.70, Estimated Creat Clear 156, Estimated GFR 117, Est GFR ( Amer) 141, Glucose 129 H, Calcium 9.3, Total Bilirubin 0.5, AST 38, ALT 38, Alkaline Phosphatase 80, Troponin I < 0.01, NT-Pro-B Natriuret Pep 44.7, Total Protein 8.3 H, Albumin 4.2, Globulin 4.1 H, Albumin/[place]
--- NOTE | 2023-03-19 10:33 | CA_ITS ---
APPROVED REPORT EXAM: Comprehensive 2D, Doppler, and color-flow Echocardiogram Chamber Magistrate: Gloria Solis RVT Ht: 5 ft 8 in Wt: 209lbs BSA: 2.08 BP: 150/86 mmHg Indications: CHF,COPD,SOA,SMOKER,HTN,HLD,GERD TDS-OVERLAYIN LUNG 2D Dimensions LVOT 2.07 cm (M/F) 1.5-2.5 LA Volume 30.10 mL LA Volume Index 14.47 mL/m2 (M/F) 16-34 M-Mode Dimensions RVDd 3.75 cm (0.9-2.6) LA Diam 3.64 cm (1.9-4.0) LVDd 4.55 cm (3.5-5.7) Ao Diam 3.44 cm (2.0-3.7) LVDs 3.17 cm (3.5-5.7) IVSd 1.16 cm (0.6-1.1) PWd 0.71 cm (0.6-1.1) EF (Teich) 57.90% FS 30.30% EDV (Teich) 94.90 mL TAPSE 2.17 (<1.7) ESV (Teich) 40.00 mL LV Diastology E Decel Time 207.00 (160-240 msec) E/A Ratio 0.7 MED E' 6.10 (< 7 cm/sec) E'/MED E' Ratio 10.11 (>14) LAT E' 8.80 (<10 cm/sec) E/LAT E' Ratio 7.01 (>14) Aortic Valve LVOT Max 97.00 (70-110 cm/s) LVOT VTI 18.94 cm AoV Peak Steve. 133.00 (50-130 cm/s) AO Peak GR. 7.10 mmHg AO Mean GR. 4.10 (<5 mmHg) AO VTI 23.42 (18-25 cm) FITO (VTI) 2.72 (2.5-4.5 cm2) Mitral Valve MV E Max Steve. 62.00 (40-130 cm/s) MV A Velocity 95.00 (40-130 cm/s) E/A Ratio 0.65 MV Decel. Time 207.00 (160-240 ms) MV PHT 61.00 ms Pulmonary Valve PV Peak Velocity 88.00 (50-150 cm/s) Tricuspid Valve TR P. Velocity 236.00 cm/s RAP Estimate 10.00 mmHg RVSP 32.20 mmHg Left Ventricle The left ventricle is normal size. The left ventricular systolic function is normal. The left ventricular ejection fraction is within the normal range. There is increased LV wall thickness. There is normal LV segmental wall motion. The left ventricular diastolic function is normal. LVEF is 55%. Right Ventricle The right ventricle is mildly to moderately dilated. The right ventricular systolic function is normal. There is increased LV wall thickness. Atria The left atrium size is normal. The right atrium size is normal. There is no Doppler evidence of interatrial shunt. Aortic Valve The aortic valve opens well. There is no aortic valvular stenosis. Trace aortic regurgitation. Mitral Valve The mitral valve is normal in structure. No evidence of mitral valve stenosis. Trace mitral regurgitation. Tricuspid Valve The tricuspid valve leaflets are thin and pliable. Trace tricuspid regurgitation. There is insufficient TR jet to estimate RVSP. Pulmonic Valve The pulmonary valve is normal in structure. Trace pulmonic regurgitation. Great Vessels The aortic root is normal in size. The ascending aorta is not well visualized. IVC is normal in size and collapses >50% with inspiration. Pericardium There is no pericardial effusion. Other Information Study Quality: Technically Difficult Conclusion This was a technically difficult study due to poor acoustic windows. Normal biventricular systolic function. Mild to moderate RV dilation. No significant valvular stenosis or regurgitation. Electronically signed by : Shy Street MD 03/19/2023 22:44:40
--- NOTE | 2023-03-19 10:35 | EXP.ACUTE.PN ---
Subjective *Date: 03/19/23 *Time: 13:42 Interval history: Currently on 2 L nasal cannula oxygen. Denies any chest pain, nausea, vomiting. Does complain of shortness of breath. Appears in mild distress. Quite wheezy on exam. Spouse at bedside. Tolerating p.o. intake. Reports emphysema, COPD, smoked 3pks a day [id number]. stopped 26yrs ago. drinke rarely, previous cath with no stents. Dyspneic for 3 weeks. Medical Exam Vital signs and Labs for Last 24 Hours: Vital Signs Temp Pulse Pulse Resp BP BP Pulse Ox 03/19/23 07:55 92 L 03/19/23 07:55 89 L 03/19/23 07:18 98.7 F 86 18 156/107 H 90 L 03/19/23 05:00 03/19/23 04:00 97.8 F 100 H 18 134/99 H 95 03/19/23 02:14 81 03/19/23 02:13 80 03/18/23 20:00 97.7 F 113 H 18 151/95 H 93 L 03/18/23 20:00 96 03/18/23 19:58 78 03/18/23 19:58 80 03/18/23 19:51 98.4 F 81 20 164/94 H 03/18/23 19:30 84 18 164/94 H 92 L 03/18/23 19:00 97 H 18 158/95 H 92 L 03/18/23 18:30 86 19 135/92 H 92 L 03/18/23 18:00 100 H 18 128/87 94 L 03/18/23 17:11 105 H 21 150/86 H 90 L 03/18/23 17:04 98.0 F 107 H 20 150/86 H 92 L O2 Del Method O2 Flow Rate 03/19/23 07:55 Nasal Cannula 2 03/19/23 07:55 Room Air 03/19/23 07:18 Room Air 03/19/23 05:00 Nasal Cannula 2 03/19/23 04:00 Nasal Cannula 2 03/19/23 02:14 03/19/23 02:13 03/18/23 20:00 Nasal Cannula 2 03/18/23 20:00 Nasal Cannula 2 03/18/23 19:58 03/18/23 19:58 03/18/23 19:51 Nasal Cannula 03/18/23 19:30 03/18/23 19:00 Room Air 03/18/23 18:30 Room Air 03/18/23 18:00 Room Air 03/18/23 17:11 Room Air 03/18/23 17:04 Room Air Intake and Output 03/18/23 03/19/23 03/19/23 23:59 07:59 15:59 Intake Total 890 / 890 Output Total 1000 / 1000 600 / 600 Balance -1000 / -350 290 / 290 Intake: Intake, Oral Amount 840 / 840 Intake, Total IV Amount 50 / 50 Ceftriaxone 1 gm 1 gm In 0.9 % 50 / 50 Sodium Chloride 50 ml @ 100 mls /hr IV Q24H FOR[facility]LY [facility], 1928–1983 Rx#:[id number] Output: Output, Urine Amount 1000 / 1000 600 / 600 Other: Number of Unmeasured Voids 2 Weight 94.971 kg 94.971 kg Patient Weight 03/19/23 23:59 Weight 94.971 kg Laboratory Results - last 24 hr 03/18/23 17:15: WBC 10.9 H, RBC 5.32, Hgb 15.3, Hct 47.3, MCV 89.0, MCH 28.7, MCHC 32.3, RDW 13.7, Plt Count 341, MPV 8.1, Neut % (Auto) 86.8 H, Lymph % (Auto) 6.5 L, [place] % (Auto) 6.3, Eos % (Auto) 0.3, Baso % (Auto) 0.1, Neut # (Auto) 9.4 H, Lymph # (Auto) 0.7, [place] # (Auto) 0.7, Eos # (Auto) 0.0, Baso # (Auto) 0.0, Total Counted 100, Neutrophils % (Manual) 84 H, Lymphocytes % (Manual) 14, Monocytes % (Manual) 2, Platelet Estimate Normal, RBC Morphology Normal, Sodium 139, Potassium 4.0, Chloride 104, Carbon Dioxide 27, Anion Gap 12.0, BUN 19, Creatinine 0.70, Estimated Creat Clear 156, Estimated GFR 117, Est GFR ( Amer) 141, Glucose 129 H, Calcium 9.3, Total Bilirubin 0.5, AST 38, ALT 38, Alkaline Phosphatase 80, Troponin I < 0.01, NT-Pro-B Natriuret Pep 44.7, Total Protein 8.3 H, Albumin 4.2, Globulin 4.1 H, Albumin/Globulin Ratio 1.0 L 03/18/23 17:31: VBG pH 7.38, VBG pCO2 38.2, VBG pO2 71.4 H, VBG HCO3 22.3 L, VBG Total CO2 23.5, VBG O2 Saturation 94.3 H, VBG Base Excess -2.8 L 03/18/23 20:37: Troponin I < 0.01 03/18/23 23:40: Troponin I < 0.01 03/19/23 06:28: WBC 8.8, RBC 5.01, Hgb 14.5, Hct 44.8, MCV 89.6, MCH 28.9, MCHC 32.3, RDW 13.9, Plt Count 290, MPV 7.9, Neut % (Auto) 84.1 H, Lymph % (Auto) 7.5 L, [place] % (Auto) 8.0, Eos % (Auto) 0.2, Baso % (Auto) 0.1, Neut # (Auto) 7.4, Lymph # (Auto) 0.7, [place] # (Auto) 0.7, Eos # (Auto) 0.0, Baso # (Auto) 0.0, Sodium 138, Potassium 4.1, Chloride 103, Carbon Dioxide 27, Anion Gap 12.1, BUN 14 D, Creatinine 0.70, Estimated Creat Clear 158, Estimated GFR 117, Est GFR ( Amer) 141, Glucose 110 H, Calcium 8.5, Magnesium 1.8, Total Bilirubin 0
--- NOTE | 2023-03-19 10:36 | CT_ITS ---
FINAL REPORT CLINICAL HISTORY: dyspnea, possible PE? COMPARISON: None FINDINGS: Thin section axial CT images of the chest were obtained with contrast. 3D reformatted images were also obtained. This study was performed with techniques to keep radiation doses as low as reasonably achievable (ALARA). Individualized dose reduction techniques using automated exposure control or adjustment of mA and/or kV according to the patient's size were employed. There is no evidence of pulmonary embolism. There is no evidence of thoracic aortic aneurysm or dissection. There are multiple mildly enlarged mediastinal and hilar nodes present, nonspecific, but favor reactive. Moderate changes of emphysema are present. There are numerous small nodules seen in the lung choi bilaterally, including a 7 mm irregular nodule in the left upper lobe seen best on image #81. There is mild bronchial wall thickening compatible with bronchitis. Limited images of the upper abdomen are unremarkable. IMPRESSION: No evidence of pulmonary embolism. Mild bronchial wall thickening compatible with bronchitis. Numerous small nodules present bilaterally, as described. These may represent either mycobacterial or fungal disease, and follow-up is suggested. Reviewed, Interpreted and Dictated by Ari Hines III, MD Transcribed by Isabel Ellison Authenticated and [facility]
--- NOTE | 2023-03-19 10:39 | CT_ITS ---
FINAL REPORT CLINICAL HISTORY: distension, tenderness COMPARISON: None FINDINGS: Axial CT images of the abdomen and pelvis were obtained without intravenous contrast. Coronal and sagittal reformatted images were also obtained.This study was performed with techniques to keep radiation doses as low as reasonably achievable (ALARA). Individualized dose reduction techniques using automated exposure control or adjustment of mA and/or kV according to the patient's size were employed. Abdomen:The lung bases are clear. There is a less than 3 mm in size nonobstructing right renal stone present. There is a 23 mm low-attenuation mass in the left kidney that cannot be accurately characterized without contrast administration, which may represent a cyst. There is also a 5 mm high attenuation focus in the left kidney, that may represent a atypical cyst, however once again without contrast administration these cannot be accurately characterized. The gallbladder has been surgically resected. There is a 3.4 cm abdominal aortic aneurysm present. A small umbilical hernia is present containing only fat. No mass or adenopathy is seen. No inflammatory process is identified. Pelvis: Images of the pelvis reveal no evidence of ureteral dilation or ureteral stone.No mass or abnormal fluid collection is identified. The appendix is unremarkable in appearance. Diverticulosis of the sigmoid colon is present without acute inflammatory change. IMPRESSION: Several low-attenuation masses are present in the kidneys, particularly on the left side as described. These cannot be accurately characterized without contrast administration, and a CT of the abdomen pre- and postcontrast administration for renal mass evaluation is suggested. 3 mm nonobstructing right renal stone. 3.4 cm abdominal aortic aneurysm. Sigmoid diverticulosis without acute inflammatory changes noted. Reviewed, Interpreted and Dictated by Ari Hines III, MD Transcribed by Isabel Ellison Authenticated and [facility]
[2023-03-19 12:39] LABS: Human Metapneumovirus Detected (NotDetected)
[2023-03-20] VITALS (8 sets, daily range): BP systolic 125–156; BP diastolic 70–96; PULSE 65–88; RESP 16–20; TEMP 36.4–36.7; O2SAT 91–96; BMI 31.2
--- NOTE | 2023-03-20 04:45 | PC.NURSE ---
pt has remained on 3l/nc through the shift, pt rested well through the night, pt coughing ,tessalon perle given. reports abd tightness pain with coughing, hydrocodone given for relief.
--- NOTE | 2023-03-20 09:13 | EXP.PULM.PN ---
Subjective *Date: 03/20/23 *Time: 10:04 Interval history: No acute respiratory events overnight. Patient denies any significant improvement in his respiratory symptoms. Pulmonology Exam Inpatient Vital signs and Labs for Last 24 Hours: Temp Pulse Resp BP Pulse Ox O2 Del Method O2 Flow Rate 98.1 F 78 19 144/92 H 96 Nasal Cannula 3 03/20/23 07:46 03/20/23 07:46 03/20/23 07:46 03/20/23 07:46 03/20/23 07:46 03/20/23 07:46 03/20/23 07:46 Laboratory Results - last 24 hr 03/19/23 08:15: Chlamy pneumoniae PCR TNP, Adenovirus (PCR) Not detected, B. pertussis DNA (PCR) TNP, Coronavirus OC43 (PCR) Not detected, Coronavirus HKU1 (PCR) Not detected, Coronavirus 229E (PCR) Not detected, SARS-CoV-2 (PCR) Not detected, Coronavirus NL63 (PCR) Not detected, Human Metapneumovir PCR Detected A, Influenza A (H1) PCR Not detected, Influ A (H1N1/09) PCR Not detected, Influenza A (H3) PCR Not detected, Influenza Type A (PCR) Not detected, Influenza Type B (PCR) Not detected, M. pneumoniae (PCR) TNP, Parainfluenza 1 (PCR) Not detected, Parainfluenza 2 (PCR) Not detected, Parainfluenza 3 (PCR) Not detected, Parainfluenza 4 (PCR) Not detected, RSV (PCR) Not detected, Entero/Rhino (PCR) Not detected I & O for Labs for Last 24 Hours: Intake & Output 03/17/23 03/18/23 03/19/23 03/20/23 23:59 23:59 23:59 23:59 Intake Total 1360 / 1360 Output Total 1000 / 1000 1400 / 1400 Balance -1000 / -350 -40 / -40 Weight 209 lb 6 oz 209 lb 6 oz 206 lb 2 oz Constitutional: Present moderate distress Head: Present normocephalic and atraumatic ENT: Present normal exam, normal oropharynx and mucous membranes moist Neck: Present normal inspection and full ROM Respiratory: Present respiratory distress, wheezes, crackles, diminished air movement and able to speak in complete sentences Cardiac: Present S1/S2, Tachycardia and radial pulses present GI: Present distention; Absent soft, tenderness or guarding Skin: Present intact; Absent cyanosis or jaundice Neuro: Present alert, awake and oriented x 3 Extremities: Present normal inspection; Absent clubbing or cyanosis Psychiatric: Present normal affect and cooperative Assessment and Plan *Assessment and plan (1) Acute respiratory failure with hypoxia: Status: Acute Category: Medical Code(s): J96.01 - Acute respiratory failure with hypoxia (2) Acute exacerbation of chronic obstructive pulmonary disease: Status: Acute Category: Medical Code(s): J44.1 - Chronic obstructive pulmonary disease with (acute) exacerbation Plan Mr. Rankin is a 57-year-old male prior smoker as per the patient last smoked around 28 years ago presented to hospital with worsening respiratory distress associated with increasing cough with no worsening productive phlegm. Patient also admits a prior diagnosis of bilateral lung collapse. He admits he is following with cardiology at [facility], [place] and was told his lung function is 20 to 30% predicted. Currently there is trilogy inhaler at home. He is not using any oxygen at baseline. Afebrile. Very mild leukocytosis upon admission. Chest x-ray upon admission to look his vascular congestion noted. No dense consolidation noted. Patient currently receiving ceftriaxone prednisone 40 mg daily. Interval update: CTA performed no evidence of pulm embolism. Bilateral upper lobe predominant emphysematous changes along with middle lower lobe micronodular tree-in-bud opacities. Comprehensive respiratory viral PCR panel positive for human metapneumovirus. Hospital notes from [facility] reviewed, patient has a diagnosis of severe COPD, asthma COPD overlap syndrome peripheral eosinophilia count at 290 along with allergies to cat dander. Pulm note also mentions patient having a left heart cath performed that showed multiple coronary irregularities, will defer that to primary team for further evaluation and management Plan: -Continue nasal cannula oxygen supplementation to
--- NOTE | 2023-03-20 13:28 | PC.NURSE ---
on initial assessment pt was soa on 3l nc, o2 sat 96%. audible wheezes, judson exp wheezing. abd large, firm and distended, pt states it has got worse since admission. pt states he had a good bm yesterday morning and today, passing gas. dr houser made aware. pt has been up to chair and walked around room. afternoon assessment pt has family at bs and states is breathing is better . cb within reach, no needs at this time
--- NOTE | 2023-03-20 13:49 | EXP.PN ---
Subjective *Date: 03/20/23 *Time: 13:49 Interval history: Patient is seen and examined at bedside today. I am accompanied by nursing staff (Nan). Nursing staff report that he remains afebrile with stable vital signs and saturating appropriately on 3 L of oxygen via nasal cannula. He reports that he does not have home oxygen. He describes less dyspnea and improved symptomatology. His morning labs have been reviewed and discussed including a normal white blood cell count. Exam Data for Last 24 hours Vital signs and Labs for Last 24 Hours: Temp Pulse Resp BP Pulse Ox O2 Del Method O2 Flow Rate 97.6 F 87 18 125/70 96 Nasal Cannula 3 03/20/23 11:44 03/20/23 12:02 03/20/23 11:44 03/20/23 11:44 03/20/23 11:44 03/20/23 13:00 03/20/23 13:00 I & O for Last 24 hours: Intake & Output 03/17/23 03/18/23 03/19/23 03/20/23 23:59 23:59 23:59 23:59 Intake Total 1360 / 1360 720 / 720 Output Total 1000 / 1000 1400 / 1400 175 / 175 Balance -1000 / -350 -40 / -40 545 / 545 Weight 94.971 kg 94.971 kg 93.497 kg Microbiology Reports for the Last 24 Hours: Microbiology 03/20/23 10:45 Sputum - Expectorated Sputum LARY Preparation - Final Constitutional Constitutional: no acute distress, obese, chronically ill appearing and cooperative *Routine HEENT Exam Head: Present normocephalic Eye: Present EOMI and PERRL *Routine Neck Exam Neck: Present supple and trachea midline; Absent lymphadenopathy *Routine Respiratory Exam Respiratory: Present rhonchi, normal respiratory effort and symmetric chest movement; Absent respiratory distress *Routine Cardiovascular Exam Cardiovascular: Present RRR, Normal S1 and Normal S2 *Routine Abdominal Exam Abdominal: Present soft, normoactive bowel sounds, distended and obese; Absent tenderness, rebound or guarding *Routine Extremities Exam Extremities: Present full ROM and pulses intact; Absent clubbing or edema *Routine Skin Exam Skin: Present warm; Absent rash *Routine Neurological Exam Neurological: Present alert, oriented X3, moving all extremities, vision grossly intact, hearing grossly intact and normal speech; Absent sensory deficit or motor deficit Routine Psychiatric Exam Psychiatric: Present normal affect, normal thought process, cooperative, good insight and good judgment Assessment and Plan *Assessment and plan (1) Acute respiratory failure with hypoxia: Status: Acute Category: Medical Code(s): J96.01 - Acute respiratory failure with hypoxia (2) Acute exacerbation of chronic obstructive pulmonary disease: Status: Acute Category: Medical Code(s): J44.1 - Chronic obstructive pulmonary disease with (acute) exacerbation (3) Hypertension: Status: Acute Qualifiers: Hypertension type: unspecified Qualified Code(s): I10 - Essential (primary) hypertension Category: Medical Code(s): I10 - Essential (primary) hypertension (4) Hyperlipemia: Status: Acute Qualifiers: Hyperlipidemia type: unspecified Qualified Code(s): E78.5 - Hyperlipidemia, unspecified Category: Medical Code(s): E78.5 - Hyperlipidemia, unspecified (5) GERD (gastroesophageal reflux disease): Status: Acute Qualifiers: Esophagitis presence: without esophagitis Qualified Code(s): K21.9 - Gastro-esophageal reflux disease without esophagitis Category: Medical Code(s): K21.9 - Gastro-esophageal reflux disease without esophagitis (6) Kidney lesion, [place], left: Status: Acute Category: Medical Code(s): N28.9 - Disorder of kidney and ureter, unspecified Plan 57-year-old with a history of COPD, HTN, HLD, GERD presented with 2 weeks referred of slowly worsening cough shortness of breath and wheezing. Patient has been visiting ED and started amoxicillin and steroids a few days ago with no improvement of his symptoms. During first ER work up CXR showed
[2023-03-21 04:00] VITALS: BP 135/84; PULSE 74; RESP 16; TEMP 36.7; O2SAT 98; BMI 31.9
[2023-03-21 06:00] VITALS: PULSE 71; PULSE 74; O2SAT 94
[2023-03-21 07:16] VITALS: BP 163/108; PULSE 65; RESP 22; TEMP 36.6; O2SAT 95
--- NOTE | 2023-03-21 09:30 | EXP.PULM.PN ---
Subjective *Date: 03/21/23 *Time: 12:17 Interval history: No acute respiratory events overnight. Patient admits improvement in his respiratory symptoms. Pulmonology Exam Inpatient Vital signs and Labs for Last 24 Hours: Temp Pulse Resp BP Pulse Ox O2 Del Method O2 Flow Rate 97.9 F 65 22 163/108 H 95 Nasal Cannula 3 03/21/23 07:16 03/21/23 07:16 03/21/23 07:16 03/21/23 07:16 03/21/23 07:16 03/21/23 09:00 03/21/23 09:00 FiO2 28 03/20/23 23:39 I & O for Labs for Last 24 Hours: Intake & Output 03/18/23 03/19/23 03/20/23 03/21/23 23:59 23:59 23:59 23:59 Intake Total 1360 / 1360 1740 / 1740 470 / 470 Output Total 1000 / 1000 1400 / 1400 175 / 175 200 / 200 Balance -1000 / -350 -40 / -40 1565 / 1565 270 / 270 Weight 209 lb 6 oz 209 lb 6 oz 206 lb 2.115 oz 211 lb Microbiology Reports for the Last 24 Hours: Microbiology 03/20/23 10:45 Sputum - Expectorated Sputum LARY Preparation - Final Constitutional: Present moderate distress Head: Present normocephalic and atraumatic ENT: Present normal exam, normal oropharynx and mucous membranes moist Neck: Present normal inspection and full ROM Respiratory: Present respiratory distress, wheezes, diminished air movement and able to speak in complete sentences Cardiac: Present S1/S2, Tachycardia and radial pulses present GI: Present distention; Absent soft, tenderness or guarding Skin: Present intact; Absent cyanosis or jaundice Neuro: Present alert, awake and oriented x 3 Extremities: Present normal inspection; Absent clubbing or cyanosis Psychiatric: Present normal affect and cooperative Assessment and Plan *Assessment and plan (1) Acute respiratory failure with hypoxia: Status: Acute Category: Medical Code(s): J96.01 - Acute respiratory failure with hypoxia (2) Acute exacerbation of chronic obstructive pulmonary disease: Status: Acute Category: Medical Code(s): J44.1 - Chronic obstructive pulmonary disease with (acute) exacerbation Plan Mr. Rankin is a 57-year-old male prior smoker as per the patient last smoked around 28 years ago presented to hospital with worsening respiratory distress associated with increasing cough with no worsening productive phlegm. Patient also admits a prior diagnosis of bilateral lung collapse. He admits he is following with cardiology at [facility] and was told his lung function is 20 to 30% predicted. Currently there is trilogy inhaler at home. He is not using any oxygen at baseline. Afebrile. Very mild leukocytosis upon admission. Chest x-ray upon admission to look his vascular congestion noted. No dense consolidation noted. Patient currently receiving ceftriaxone prednisone 40 mg daily. CTA performed no evidence of pulm embolism. Bilateral upper lobe predominant emphysematous changes along with middle lower lobe micronodular tree-in-bud opacities. Comprehensive respiratory viral PCR panel positive for human metapneumovirus. Hospital notes from [facility] reviewed, patient has a diagnosis of severe COPD, asthma COPD overlap syndrome peripheral eosinophilia count at 290 along with allergies to cat dander. Pulm note also mentions patient having a left heart cath performed that showed multiple coronary irregularities, will defer that to primary team for further evaluation and management. Interval update: No acute respiratory vents overnight. Patient continued to be needing 3 L nasal oxygen supplementation. Improving wheezing. Patient with improved respiratory distress since yesterday. Plan: -Continue nasal cannula oxygen supplementation to maintain O2 saturation 90% able, currently on 3 L satting 92 to 94% room air saturations at rest today were at 55%. -Continue current antibiotics including ceftriaxone and Azithromycin, can be weaned to levofloxacin to complete a total of 5-day course -Follow with sputum AFB and fungal cultures. We will follow in further determine need for bronchoscopy g[place]
--- NOTE | 2023-03-21 10:21 | HMH.OTEV ---
OT Inpatient Evaluation Rehab OT IP Evaluation Start: 03/21/23 09:19 Freq: ONCE Status: Active Protocol: Document 03/21/23 10:11 [email or web address] (Rec: 03/21/23 10:20 [facility] [id number]) Rehab OT IP Assessment Subjective History Pt oriented x 3 on arrival. Pt agreeable to engage in therapy evaluation. Pt's present and supportive during evaluation. Pt was admitted on 03/18/23 due to COPD exacerbation. This is a 57- year-old with a history of COPD, HTN, HLD, GERD presented with 2 weeks referred of slowly worsening cough shortness of breath and wheezing. Patient has been visiting ED and started amoxicillin and steroids a few days ago with no progression of his symptoms. Stated been off nebulizer . Denies any chest pain denies any lower extremity swelling denies any hemoptysis fevers or chills. Admitted for treatment. Prior to being in the hospital , pt lived at home with his . Pt claims he was independent with all ADLs and IADLs prior to being in the hospital. Pt did not require any type of AE during functional transfers or ADLs. Pt also still drove. Subjective I just want my breathing to be better. Objective Patient Orientation Person,Place,Birthday Upper Extremity Gross ROM WFL Bed Mobility bed mobility-scooting,bed mobility - supine/sit Assist Level Supervision/Stand by Transfer Training Sit/Stand Transfer Assist Level Supervision/Stand by Chair Transfer Ability Supervision/Stand by Chair Transfer Technique Sit to/from Ambulatory Lower Body Dressing Ability Standby Assistance Performing Toilet Hygiene Ability Standby Assistance Overall Commode/Toilet Transfer Ability Standby Assistance Commode/Toilet Transfer Technique Sit to/from Ambulatory Rehab OT IP prob,goals,plan Problems Date of Evaluation: 03/21/23 Rehab Potential
--- NOTE | 2023-03-21 10:24 | HMH.PTEV ---
Physical Therapy Evaluation Rehab PT IP Evaluation Start: 03/21/23 09:18 Freq: ONCE Status: Active Protocol: Document 03/21/23 10:21 JONI (Rec: 03/21/23 10:24 PHOMAR [id number]) Subjective/History History History 57 yoam adm to [facility] with COPD exac. PMH of HTN, HLD, GERD, COPD. He reports he is generally independent with all mobility and ADLs at baseline without AD. Subjective Subjective Pt reports no c/o other than SOA with exertion this am. New diagnosis of cancer in past 12 No months? Rehab PT IP Eval Objective Appearance Patient Behavior Appropriate Patient Orientation Person,Place,Time Difficulty following instructions none Speech Pattern Clear Ambulation Patient Able to Ambulate Yes Ambulation Observation IP General Gait Pattern Observation No Deviations/Normal Ambulation Distance (feet) 50 Ambulation Assistive Device None Ambulation Ability Independent Balance Ability to Arise Able, uses arms to help Sitting Balance Steady, safe Standing Balance Narrow stance w/o support Dynamic Sitting Balance Ability Good Dynamic Standing Balance Ability Good Transfers Bed Transfer Ability Independent Chair Transfer Ability Independent Sit to Stand Bed Transfer Ability Independent Sit to Stand Chair Transfer Ability Independent ROM All Extremities PT ROM Status WFL MMT All Extremities PT MMT WFL Rehab PT IP prob,goals,plan Problems Date of Evaluation: 03/21/23 Discharge Plan PT Discharge Plan Pt is appropriate to return home once medically stable for d/c. He did use oxygen via NC at all times during treatment this am. Eval Complexity Eval Charge Codes 52016 - High Complexity PHYSICIAN CERTIFICATION: I certify the specified therapy services for Gomez Rankin are required, authorized, and reviewed every 30 days.
--- NOTE | 2023-03-21 10:30 | PC.NURSE ---
PT RA SAT 85% AT THIS TIME.
--- NOTE | 2023-03-21 11:01 | EXP.DC.SUM ---
General Admission date:: 03/18/23 Discharge date: 03/21/23 HPI HPI HPI: This is a 57-year-old with a history of COPD, HTN, HLD, GERD presented with 2 weeks referred of slowly worsening cough shortness of breath and wheezing. Patient has been visiting ED and started amoxicillin and steroids a few days ago with no progression of his symptoms. Stated been off nebulizer . Denies any chest pain denies any lower extremity swelling denies any hemoptysis fevers or chills. Admitted for treatment. Hospital Course Hospital Course Hospital Course: The patient was admitted to the telemetry unit with pulmonology consultation. He was provided oxygen therapy to maintain appropriate oxygen saturations. Blood cultures identified no growth to date and sputum cultures were collected and are pending. His laboratory studies and inflammatory markers were trended and identified improvement and stability. His respiratory panel came back positive for human metapneumovirus. He was treated with IV antibiotic therapy. His oxygen requirements diminished throughout his stay. He identified improvement and inquired about discharge home. A 6-minute walk test was requested. Case management was consulted for discharge needs including home oxygen and nebulizer therapy. He understands the importance of abstaining from cigarette smoking. He will be discharged with a short course of antibiotic therapy and oral prednisone. He plans to follow-up with his PCP and a urologist to discuss abdominal CT scan findings of left renal lesion. I spent 35 minutes in [id number] time with the patient and nursing staff concerning the discharge process. We discussed the admitting diagnoses and hospital course. We discussed identified improvement and the patient's desire to be discharged. We reviewed inpatient studies and imaging. The patient voiced understanding on the importance of follow-up with his primary care provider and specialist(s). The patient plans to be compliant with the medication regimen prescribed and follow-up appointments. He understands that he can return to the emergency department with any sudden changes or concerns. Exam Data for Last 24 hours Vital signs and Labs for Last 24 Hours: Temp Pulse Resp BP Pulse Ox O2 Del Method O2 Flow Rate 97.9 F 65 22 163/108 H 95 Nasal Cannula 3 03/21/23 07:16 03/21/23 07:16 03/21/23 07:16 03/21/23 07:16 03/21/23 07:16 03/21/23 10:41 03/21/23 10:41 FiO2 28 03/20/23 23:39 I & O for Last 24 hours: Intake & Output 03/18/23 03/19/23 03/20/23 03/21/23 23:59 23:59 23:59 23:59 Intake Total 1360 / 1360 1740 / 1740 470 / 470 Output Total 1000 / 1000 1400 / 1400 175 / 175 200 / 200 Balance -1000 / -350 -40 / -40 1565 / 1565 270 / 270 Weight 94.971 kg 94.971 kg 93.5 kg 95.708 kg Microbiology Reports for the Last 24 Hours: Microbiology 03/20/23 10:45 Sputum - Expectorated Sputum LARY Preparation - Final Constitutional Constitutional: no acute distress, obese, chronically ill appearing and cooperative *Routine HEENT Exam Head: Present normocephalic Eye: Present EOMI and PERRL *Routine Neck Exam Neck: Present supple and trachea midline; Absent lymphadenopathy *Routine Respiratory Exam Respiratory: Present rhonchi, normal respiratory effort and symmetric chest movement; Absent respiratory distress *Routine Cardiovascular Exam Cardiovascular: Present RRR, Normal S1 and Normal S2 *Routine Abdominal Exam Abdominal: Present soft, normoactive bowel sounds, distended and obese; Absent tenderness, rebound or guarding *Routine Extremities Exam Extremities: Present full ROM and pulses intact; Absent clubbing or edema *Routine Skin Exam Skin: Present warm; Absent rash *Routine Neurological Exam Neurological: Present alert, oriented X3, moving all extremities, vision grossly intact, hearing grossly intact and normal speech; Absent sensory deficit or motor deficit Routine Psychiatric Exam Psychiatric: e
--- NOTE | 2023-03-21 11:11 | CARE MANAGER ---
Patient has a room air saturation of 85% @ rest.
[2023-03-21 11:40] VITALS: PULSE 74; PULSE 78; O2SAT 85
--- NOTE | 2023-03-21 14:32 | CARE MANAGER ---
Patient discharged home today with need for home oxygen. [facility] signed for [facility] and placed on chart. Order and clinical faxed to [facility] and portable delivered to bedside prior to discharge.
--- NOTE | 2023-03-22 14:01 | CARE MANAGER ---
Spoke with patient and . They haven't picked up all medications but are going to, some were not ready. They are aware of follow up appointments and deny any questions or concerns. SHAILA Ponce
== END 2023-03-21 12:35 | disposition home or self-care (01) | DRG 190 ==
LOC: ER 19:40 → 2ND 19:43
PROVIDERS: Nurse Practitioner Family; Admitting Provider Internal Medicine Adolescent Medicine; Emergency Provider Student in an Organized Health Care Education/Training Program; PCP Family Medicine; Visit Provider Internal Medicine Adolescent Medicine
DX: J44.1 Chronic obstructive pulmonary disease with (acute) exacerbation (principal); I50.33 Acute on chronic diastolic (congestive) heart failure; J96.01 Acute respiratory failure with hypoxia; I25.2 Old myocardial infarction; Z87.891 Personal history of nicotine dependence; E78.5 Hyperlipidemia, unspecified; K21.9 Gastro-esophageal reflux disease without esophagitis; I25.10 Atherosclerotic heart disease of native coronary artery without angina pectoris; I11.0 Hypertensive heart disease with heart failure
CPT/HCPCS: 36415; 71045; 71275; 74176; 80053; 82803; 83735; 83880; 84484; 85007; 85025; 87070; 87116; 87186; 87205; 87206; 87220; 87632; 87635; 93005; 93306; 94640; 97163; 97165; 99291; J0456; J0696; J3475; Q9967

== ENCOUNTER 2023-05-01 13:57 | Emergency (ER) | payer BC, SELFPAY ==
[2023-05-01 14:05] VITALS: BP 151/90; PULSE 95; RESP 22; TEMP 36.9; O2SAT 94; BMI 31.1
--- NOTE | 2023-05-01 14:32 | EXP.UTC ---
Discharge Plan Disposition Patient Disposition: Home, Self-Care Condition: Good Prescriptions Prescriptions: New azithromycin [Zithromax Z-Anastacio] 250 mg tablet See Rx Instructions .ROUTE .COMPLEX 5 Days Qty: 6 0RF Rx Instructions: For 250 mg dose pack: take 500 mg today (day 1), then 250 mg for 4 days (days 2-5) prednisone [prednisone] 20 mg tablet 20 mg PO BID 5 Days Qty: 10 0RF No Action Trelegy Ellipta 200-62.5-25 mcg blister with device 1 inh inhalation DAILY 90 Days Qty: 90 3RF albuterol sulfate 90 mcg/actuation HFA aerosol inhaler 2 inh inhalation QID PRN (Reason: shortness of breath or wheezing) 90 Days Qty: 8.5 2RF ipratropium-albuterol 0.5 mg-3 mg(2.5 mg base)/3 mL solution for nebulization 3 ml inhalation QID PRN (Reason: shortness of breath or wheezing) 90 Days Qty: 270 3RF sucralfate [Carafate] 1 gram tablet 1 g PO TID Patient Comments: TAKE 1 TABLET BY MOUTH THREE TIMES DAILY ferrous sulfate 324 mg (65 mg iron) tablet,delayed release (DR/EC) 324 mg PO BID Patient Comments: TAKE 1 TABLET BY MOUTH TWICE DAILY WITH MEALS carvedilol 12.5 mg Tablet 12.5 mg PO BID Rx Instructions: must administer with a meal/food amlodipine 5 mg Tablet 5 mg PO DAILY vitamin B complex Capsule 1 cap PO DAILY atorvastatin 40 mg Tablet 40 mg PO HS Qty: 30 0RF ipratropium-albuterol 0.5 mg-3 mg(2.5 mg base)/3 mL Solution For Nebulization 3 ml inhalation Q6HP PRN (Reason: Shortness Of Breath) Qty: 320 0RF azithromycin 250 mg Tablet 500 mg PO DAILY Qty: 10 0RF prednisone 20 mg Tablet 40 mg PO DAILY Qty: 10 0RF aspirin 81 mg Tablet,Delayed Release (Dr/Ec) 81 mg PO DAILY Qty: 30 0RF pantoprazole 40 mg Tablet,Delayed Release (Dr/Ec) 40 mg PO DAILY Qty: 30 0RF fenofibrate nanocrystallized 145 mg tablet 145 mg PO DAILY Patient Comments: TAKE 1 TABLET BY MOUTH ONCE DAILY Trelegy Ellipta 200-62.5-25 mcg blister with device 1 inh INHALATION DAILY Patient Comments: INHALE 1 PUFF BY MOUTH ONCE DAILY benzonatate 100 mg capsule 100 mg PO TIDP PRN (Reason: Cough) Qty: 30 0RF Referrals Follow up/Referrals: Kristyn Valle MD [Primary Care Provider] - See instructions Activity Restrictions/Add. Instructions Additional Instructions/Restrictions: *Monitor Temp, Over the counter Motrin or Tylenol as directed/as needed Tylenol every 4 hours and Motrin every 6 hours (as long as your family doctor has told you that you can take it) for fever or pain. and straight to ER if unable to lower temp less than 101.0 after medication given *Warm salt water gargles may help to soothe the throat *Throat Lozenges? *Warm fluids like tea with honey may help to soothe the throat? *Sleep elevated *Humidifier/Vaporizer Take medication as prescribed Follow up IMMEDIATELY for new or worsening symptoms or no Noticeable improvement over the next 48-72 hours. 911 for difficulty breathing or swallowing You were tested for today for COVID19 your test result should be back in the next 24 hours you may check your results on the [facility] if your COVID test is positive you must Quarantine for 5 days Clinical Impressions Clinical Impression: Sinusitis Qualifiers: Sinusitis location: unspecified location Chronicity: unspecified Qualified Code(s): J32.9 - Chronic sinusitis, unspecified Stand Alone Forms Stand Alone Forms: Work/School Release Instructions Patient Instructions: DI for Sinusitis, Sinusitis, DI for Respiratory Syncytial Virus -- Adults Discharge ED Provider: Jossie Yun [facility] HPI General Stated complaint: SOA, NO ENERGY Mode of Arrival: Ambulatory Source of Information: Patient Limitations: No Limitations Time Seen by Provider: 05/01/23 14:32 Description of Symptoms (Recalled from Triage Doc. by RN): PATIENT C/O SOA AND WEAKNESS SINCE YESTERDA
[2023-05-01 14:47] VITALS: BP 151/90; PULSE 95; RESP 22; TEMP 36.9; O2SAT 94
[2023-05-01 17:42] LABS: Adenovirus,PCR Not Detected (NotDetected); Coronavirus 19, PCR Not Detected (NotDetected); Coronavirus 229E Not Detected (NotDetected); Coronavirus NL63 Not Detected (NotDetected); Coronavirus OC43 Not Detected (NotDetected); Coronovirus HKU1,PCR Not Detected (NotDetected); Human Metapneumovirus Not Detected (NotDetected); Influenza A, PCR Not Detected (NotDetected); Influenza AH1, 2009 Not Detected (NotDetected); Influenza AH1, PCR Not Detected (NotDetected); Influenza AH3,PCR Not Detected (NotDetected); Influenza B, PCR Not Detected (NotDetected); Parainfluenza 1, PCR Not Detected (NotDetected); Parainfluenza 2, PCR Not Detected (NotDetected); Parainfluenza 3, PCR Not Detected (NotDetected); Respiratory Syncytial Virus Not Detected (NotDetected); Rhinovirus/Enterovirus Not Detected (NotDetected)
[2023-05-02 02:21] LABS: Parainfluenza 4, PCR Detected (NotDetected)
== END 2023-05-01 14:48 | disposition home or self-care (01) ==
PROVIDERS: Emergency Provider Nurse Practitioner; PCP Family Medicine
DX: J01.90 Acute sinusitis, unspecified (principal); B34.8 Other viral infections of unspecified site; R06.02 Shortness of breath; R53.83 Other fatigue; R09.81 Nasal congestion; R51.9 Headache, unspecified; J44.9 Chronic obstructive pulmonary disease, unspecified; I10 Essential (primary) hypertension; E78.5 Hyperlipidemia, unspecified; Z87.891 Personal history of nicotine dependence
CPT/HCPCS: 87581; 87632; 87635; 87798; 99212; 99214; G0463

== ENCOUNTER → 2023-06-07 12:40 | Outpatient (CLI) | payer BC, SELFPAY | LOC: RT 12:41 | PROVIDERS: PCP Family Medicine; Visit Provider Internal Medicine Pulmonary Disease | DX: R06.02 Shortness of breath (principal); R06.09 Other forms of dyspnea | CPT/HCPCS: 94060; 94726; 94729 ==

== ENCOUNTER 2023-09-04 14:01 | Observation (INO) | payer OTHER, SELFPAY ==
[2023-09-04] VITALS (8 sets, daily range): BP systolic 116–147; BP diastolic 65–94; PULSE 76–90; RESP 13–20; TEMP 36.5–37.8; O2SAT 2–96; BMI 31.9; BMI 31.6
--- NOTE | 2023-09-04 14:05 | ECG_ITS ---
APPROVED REPORT Exam: Resting ECG HR:87 bpm ECG Measurements Heart Rate 87 AXES [place] 125 P 70 QRSd 98 QRS 68 QT 328 T 79 QTc 373 Conclusion SINUS RHYTHM NORMAL ECG Electronically signed by : ANA MARIA HARLEY, 09/13/2023 15:29:11
--- NOTE | 2023-09-04 14:06 | ED_ITS ---
<Statement entered by Kandy Payton DO - 09/04/23 15:22> I was consulted by the RODRIGUEZ, and we discussed the complexity of the problems being addressed. I approved the treatment and management plan for this patient's care in the emergency department, thus performing a substantive portion of the medical decision making. Kandy Payton DO Discharge Plan Disposition Patient Disposition: Admitted Condition: Fair Clinical Impressions Clinical Impression: Sepsis without septic shock, Community acquired pneumonia, Acute exacerbation of chronic obstructive pulmonary disease Discharge ED Provider: Alejandro Shafer HPI <RONY Parker - Last Filed: 09/04/23 16:06> General Chief Complaint: Chest Pain Stated Complaint: Chest Pain Time Seen by Provider: 09/04/23 14:05 History of Present Illness HPI narrative: Patient presents for evaluation of shortness of breath malaise myalgias and chest pain for the last 3 days. Patient does have COPD is on 2 L by nasal cannula at home. Patient also reports a history of atherosclerotic cardiovascular disease with a history of 3 previous MIs. Patient reports he has had 3 days of bodyaches increasing shortness of breath myalgias and malaise. Patient denied a subjective fever but was febrile on arrival here. Related Data Home Medications Medication Instructions Recorded Confirmed fenofibrate nanocrystallized 145 145 mg PO DAILY Triglycerides 03/16/23 09/04/23 mg tablet amlodipine 5 mg tablet 5 mg PO DAILY High Blood Pressure 03/18/23 09/04/23 ferrous sulfate 324 mg (65 mg 324 mg PO DAILY Supplement 03/18/23 09/04/23 iron) tablet,delayed release vitamin B complex 1 cap PO DAILY Supplement 03/18/23 09/04/23 atorvastatin 40 mg tablet 40 mg PO DAILY 09/04/23 09/04/23 carvedilol 6.25 mg tablet 6.25 mg PO BID 09/04/23 09/04/23 ipratropium 0.5 mg-albuterol 3 mg 3 ml inhalation BID 09/04/23 09/04/23 (2.5 mg base)/3 mL nebulization soln multivitamin 1 tab PO DAILY 09/04/23 09/04/23 omega-3 fatty acids 1 cap PO DAILY 09/04/23 09/04/23 pantoprazole 40 mg tablet,delayed 40 mg PO HS 09/04/23 09/04/23 release paroxetine HCl 20 mg tablet 20 mg PO HS 09/04/23 09/04/23 Previous Rx's Medication Instructions Recorded benzonatate 100 mg capsule 100 mg PO TIDP PRN Cough #30 caps 03/16/23 aspirin 81 mg tablet,delayed 81 mg PO DAILY #30 tabs 03/21/23 release albuterol sulfate 90 mcg/actuation 2 inh inhalation QID PRN shortness 04/05/23 aerosol inhaler of breath or wheezing 90 days #8.5 grams fluticasone fur. 200 mcg-umeclid 1 inh inhalation DAILY 90 days #90 04/05/23 62.5 mcg-vilant 25 mcg ea inhalat.powder (Trelegy Ellipta) Allergies Allergy/AdvReac Type Severity Reaction Status Date / Time No Known Allergies Allergy Verified 04/05/23 13:02 [facility] <RONY Parker - Last Filed: 09/04/23 16:06> [facility] Disclaimer: The information contained in this section may have been updated after the patient was seen, as this information can be updated by other users. Medical History History of smoking 30 or more pack years Pulmonary emphysema Multiple lung nodules on CT Acute respiratory failure with hypoxia Hyperlipemia Atelectasis of both lungs COPD (chronic obstructive pulmonary disease) Asthma History of heart attack Hypertension Surgical History H/O hernia repair History of cholecystectomy Family History Brother Family history of myocardial infarction Mother Family history of myocardial infarction Father Family history of myocardial infarction Social History Smoking Status: Former smoker alcohol intake: never current occupational status: employed and other Travel in the last 8 weeks: None <RONY Parker - Last Filed: 09/04/23 16:06> ROS Obtained: Yes Systems reviewed as appropriate & no additional complaints except as documented Physical Exam <RONY Parker - Last Filed: 09/04/23 16:06> General General appearance: alert and in no apparent distress Head Head exam: atraumatic and normal inspection Eye Eye exam: Present normal appearance, PERRL and EOMI ENT ENT exam: Present normal exam, normal oropharynx and mucous membranes moist Neck Neck exam: Present normal inspection and full ROM; Absent lymphadenopathy Chest Chest inspection: Present normal inspection and symmetric chest wall rise Respiratory Respiratory exam: Present wheezes (Patient has end expiratory wheezing in all 4 choi with diminished breath sounds in the right lower lung choi.); Absent accessory muscle use Cardiovascular Cardiovascular exam: Present regular rate, normal rhythm, normal heart sounds, +S1 and +S2 Abdominal Exam Abdominal exam: Present soft and normal bowel sounds; Absent tenderness Extremities Exam Extremities exam: Present normal inspection and full ROM Back Exam Back exam: Present normal inspection and full ROM Neurological Exam Neurological exam: Present alert and oriented X3 Psychiatric Psychiatric exam: Present normal affect and normal mood Skin Skin exam: Present warm, dry and normal color HEART Score <RONY Parker - Last Filed: 09/04/23 16:06> HEART Score HEART Score assessment performed?: Yes History (anamnesis): Slightly suspicious ECG: Normal Age: 45-65 years Risk factors: Atherosclerosis history Troponin: </= normal limit HEART Score: 3 <Kandy Payton DO - Last Filed: 09/05/23 07:11> HEART Score HEART Score: 3 Critical Care <RONY Parker - Last Filed: 09/04/23 16:06> Critical Care Time Critical Care Time: No Medical Decision Making <RONY Parker - Last Filed: 09/04/23 16:06> Medical Records Medical records reviewed: Yes I reviewed the patient's medical records. [place] Inquiry Pt receiving controlled substance: No Vital Signs Vital Signs: 09/04/23 14:05 09/04/23 14:30 09/04/23 15:00 Temperature 100.1 F H Temperature Source Oral Pulse Rate 84 89 Pulse Rate [Left] 90 Respiratory Rate 20 20 13 Blood Pressure 137/83 117/80 Blood Pressure [Right Arm] 147/94 H Blood Pressure Mean 95 89 Blood Pressure Mean [Right Arm] 111 Blood Pressure Source Blood Pressure Position 02 Sat by Pulse Oximetry 94 L 96 96 Oxygen Delivery Method 09/04/23 16:30 Temperature 98.9 F Temperature Source Oral Pulse Rate 84 Pulse Rate [Left] Respiratory Rate 18 Blood Pressure 116/74 Blood Pressure [Right Arm] Blood Pressure Mean Blood Pressure Mean [Right Arm] Blood Pressure Source Automatic Cuff Blood Pressure Position Sitting 02 Sat by Pulse Oximetry Oxygen Delivery Method Nasal Cannula Lab Data Lab results reviewed: Yes I reviewed the patient's lab results. Labs: Lab Results 09/04/23 14:03: Chlamy pneumoniae PCR TNP, Adenovirus (PCR) Not detected, B. pertussis DNA (PCR) TNP, Coronavirus OC43 (PCR) Not detected, Coronavirus HKU1 (PCR) Not detected, Coronavirus 229E (PCR) Not detected, SARS-CoV-2 (PCR) Not detected, Coronavirus NL63 (PCR) Not detected, Human Metapneumovir PCR Not detected, Influenza A (H1) PCR Not detected, Influ A (H1N1/09) PCR Not detected, Influenza A (H3) PCR Not detected, Influenza Type A (PCR) Not detected, Influenza Type B (PCR) Not detected, M. pneumoniae (PCR) TNP, Parainfluenza 1 (PCR) Not detected, Parainfluenza 2 (PCR) Not detected, Parainfluenza 3 (PCR) Not detected, Parainfluenza 4 (PCR) Not detected, RSV (PCR) Not detected, E ntero/Rhino (PCR) Detected A 09/04/23 14:05: WBC 14.4 H, RBC 4.70, Hgb 14.2, Hct 43.2, MCV 91.9, MCH 30.1, MCHC 32.8, RDW 13.6, Plt Count 301, MPV 8.8, Neut % (Auto) 78.4, Lymph % (Auto) 11.3, [place] % (Auto) 7.3, Eos % (Auto) 2.3, Baso % (Auto) 0.6, Neut # (Auto) 11.3 H, Lymph # (Auto) 1.6, [place] # (Auto) 1.1 H, Eos # (Auto) 0.3, Baso # (Auto) 0.1, Sodium 136, Potassium 4.6, Chloride 102, Carbon Dioxide 26, Anion Gap 12.6, BUN 13, Creatinine 0.80, Estimated Creat Clear 139, Estimated GFR 100, Est GFR ( Amer) 121, Glucose 106 H, Calcium 9.7, Magnesium 1.7, Total Bilirubin 1.1, AST 48, ALT 32, Alkaline Phosphatase 49, Troponin I < 0.01, NT-Pro-B Natriuret Pep < 20.0, Total Protein 7.8, Albumin 4.2, Globulin 3.6 H, Albumin/Globulin Ratio 1.2 09/04/23 14:08: SARS-CoV-2 (PCR) Not detected, Influenza A Untype (PCR) Not detected, Influenza Type B (PCR) Not detected 09/04/23 14:19: VBG pH 7.44 H, VBG pCO2 35.3, VBG pO2 124.5 H, VBG HCO3 23.2, VBG Total CO2 24.3, VBG O2 Saturation 98.8 H, VBG Base Excess -1.1, VBG Lactic Acid 2.3 H 09/04/23 15:22: PT 11.5, INR 1.07, D-Dimer 0.36 09/04/23 14:05 09/05/23 05:34 Response Orders (Tests/Meds): ED MEDICATIONS Generic Name Dose Route Start Last Admin Trade Name Freq PRN Reason Stop Dose Admin Acetaminophen 650 mg 09/04/23 19:47 09/04/23 20:06 Acetaminophen 325mg Tab PO 10/04/23 19:46 650 mg Q4HP PRN Administration Fever or Mild Pain (1-3) Albuterol/Ipratropium 3 ml 09/04/23 18:00 09/05/23 06:19 Ipratropium/Albuterol 3 Ml Neb IH 10/04/23 17:59 3 ml Q6RT JUAN M Administration Amlodipine Besylate 5 mg 09/05/23 09:00 Amlodipine 5mg Tablet PO 10/05/23 08:59 DAILY JUAN M Aspirin 81 mg 09/05/23 09:00 Aspirin Ec 81mg Tablet PO 10/05/23 08:59 DAILY JUAN M Atorvastatin Calcium 40 mg 09/05/23 09:00 Atorvastatin 40mg Tablet PO 10/05/23 08:59 DAILY JUAN M Carvedilol 6.25 mg 09/04/23 21:00 09/04/23 20:05 Carvedilol 6.25mg Tablet PO 10/04/23 20:59 6.25 mg BID JUAN M Administration Enoxaparin Sodium 40 mg 09/04/23 18:05 09/04/23 18:22 Enoxaparin 40mg/0.4ml Syringe SQ 09/04/23 18:06 40 mg ONCE ONE Administration Fluticasone/Umeclidinium/Vilanterol 1 puff 09/05/23 09:00 Fluticasone/Umeclidin/Vilanter 200/62.5/25mcg Inhaler 10/05/23 08:59 DAILY JUAN M Azithromycin 500 mg/ Sodium 250 mls @ 250 mls/hr 09/04/23 14:45 09/04/23 15:17 Chloride IV 09/14/23 14:44 250 mls/hr Q24H JUAN M Administration Ceftriaxone Sodium 1 gm/ 50 mls @ 100 mls/hr 09/04/23 14:45 09/04/23 15:11 Sodium Chloride IV 09/14/23 14:44 100 mls/hr Q24H JUAN M Administration Morphine Sulfate 2 mg 09/04/23 19:47 09/05/23 04:55 Morphine 2mg/Ml Syringe IV 10/04/23 19:46 2 mg Q4HP PRN Administration Moderate to Severe Pain (4-10) Pantoprazole Sodium 40 mg 09/04/23 21:00 09/04/23 20:06 Pantoprazole 40mg Tablet PO 10/04/23 20:59 40 mg HS JUAN M Administration Paroxetine HCl 20 mg 09/04/23 21:00 09/04/23 20:17 Paroxetine 20mg Tablet PO 10/04/23 20:59 Not Given HS JUAN M Prednisone 40 mg 09/05/23 09:00 Prednisone 20mg Tab PO 10/05/23 08:59 DAILY JUAN M Sodium Chloride 10 ml 09/04/23 14:08 Sodium Chloride 0.9% 10ml Flush Syringe IV 10/04/23 14:07 NEEDED PRN Maintain IV Site Sodium Chloride 3 ml 09/04/23 17:25 Sodium Chloride 3% 15ml Neb 10/04/23 17:24 ONCE PRN INDUCE SPUTUM COLLECTION Discontinued Medications Generic Name Dose Route Start Last Admin Trade Name Freq PRN Reason Stop Dose Admin Acetaminophen 1,000 mg 09/04/23 14:18 09/04/23 14:40 Acetaminophen 1,000mg/100ml Vial IV 09/04/23 14:19 1,000 mg ONCE ONE Administration Albuterol/Ipratropium 3 ml 09/04/23 14:18 09/04/23 17:22 Ipratropium/Albuterol 3 Ml Neb 09/04/23 14:19 Not Given ONCE ONE Dexamethasone Sodium Phosphate 10 mg 09/04/23 14:18 09/04/23 14:34 Dexamethasone 4mg/Ml 1ml Vial IM 09/04/23 14:19 Not Given ONCE ONE Dexamethasone Sodium Phosphate 10 mg 09/04/23 14:34 09/04/23 14:40 Dexamethasone 4mg/Ml 1ml Vial IV 09/04/23 14:35 10 mg ONCE ONE Administration Sodium Chloride 2,050 mls @ 1,025 mls/hr 09/04/23 14:52 09/04/23 15:58 Sod Chlor 0.9% 1000ml Bag 30 ml/kg infuse over 2 hr (2050 ml) 09/04/23 16:51 1,025 mls/hr IV Administration .Q2H ONE Ketorolac Tromethamine 15 mg 09/04/23 14:18 09/04/23 14:40 Ketorolac 30mg/Ml Vial IV 09/04/23 14:19 15 mg ONCE ONE Administration ORDERS Category Date Time Status XR chest 2V Stat Exams 09/04/23 14:08 Completed BNP [NT Pro Brain Natriuretic Pep.] Stat Lab 09/04/23 14:05 Completed Complete Blood Count Auto Diff AMLAB Lab 09/05/23 05:34 Received Complete Blood Count Auto Diff Stat Lab 09/04/23 14:05 Completed Comprehensive Metabolic Panel AMLAB Lab 09/05/23 05:34 Results Comprehensive Metabolic Panel Stat Lab 09/04/23 14:05 Completed D-Dimer Stat Lab 09/04/23 15:22 Completed Full Resp Panel w/COVID ([facility] Routine Lab 09/04/23 14:03 Completed INR [Prothrombin Time INR] Stat Lab 09/04/23 15:22 Completed Magnesium AMLAB Lab 09/05/23 05:34 Results Magnesium Stat Lab 09/04/23 14:05 Completed Rapid PCR Covid and Flu A/B Stat Lab 09/04/23 14:08 Completed Troponin I Q3H Lab 09/04/23 17:00 Completed Troponin I Q3H Lab 09/04/23 19:52 Completed Troponin I Stat Lab 09/04/23 14:05 Completed Blood Culture Stat Micro 09/04/23 14:48 Received VBG [Venous Blood Gas] Stat RT 09/04/23 14:19 Completed MDM Narrative Medical Decision Narrative: In summary patient is a 57-year-old male who presents to the emergency department for evaluation of shortness of breath, malaise, myalgias, chest pain. Patient is hemodynamically stable satting at 90% on room air upon arrival, febrile. Physical exam is remarkable for an expiratory wheezing in all 4 choi with diminished breath sounds on the right base. The remainder of his physical exam is unremarkable and nonfocal.. Differential diagnosis includes COPD exacerbation, acute on chronic hypoxemic respiratory failure, ACS, viral or bacterial respiratory tract infection etc. Initial workup will be conducted with hematologic labs, twelve-lead EKG, plain film chest x-ray, flu and COVID swabs. Initial interventions include Tylenol, Toradol, DuoNeb and Decadron. The patient was placed in observation status at 1430. Medical necessity for observational status is serial troponins. The patient was provided serial reevaluations and cardiac monitoring while awaiting results. Results of testing done during his observation status shows an elevated white count of 14.4 with a left shift, venous blood gas with a pH of 7.44 pCO2 of 35.3 pO2 of 124.5, elevated lactate of 2.3, and respiratory swabs negative for COVID and influenza and an undetectable initial troponin. Because of these results I discussed patient management with hospital medicine at 1520. Patient was accepted for admission at 1600. Total time in observation was [90 minutes]. <Kandy Payton, DO - Last Filed: 09/05/23 07:11> Vital Signs Vital Signs: 09/04/23 14:05 09/04/23 14:30 09/04/23 15:00 Temperature 100.1 F H Temperature Source Oral Pulse Rate 84 89 Pulse Rate [Left] 90 Respiratory Rate 20 20 13 Blood Pressure 137/83 117/80 Blood Pressure [Right Arm] 147/94 H Blood Pressure Mean 95 89 Blood Pressure Mean [Right Arm] 111 Blood Pressure Source Blood Pressure Position 02 Sat by Pulse Oximetry 94 L 96 96 Oxygen Delivery Method 09/04/23 16:30 Temperature 98.9 F Temperature Source Oral Pulse Rate 84 Pulse Rate [Left] Respiratory Rate 18 Blood Pressure 116/74 Blood Pressure [Right Arm] Blood Pressure Mean Blood Pressure Mean [Right Arm] Blood Pressure Source Automatic Cuff Blood Pressure Position Sitting 02 Sat by Pulse Oximetry Oxygen Delivery Method Nasal Cannula Lab Data Labs: Lab Results 09/04/23 14:03: Chlamy pneumoniae PCR TNP, Adenovirus (PCR) Not detected, B. pertussis DNA (PCR) TNP, Coronavirus OC43 (PCR) Not detected, Coronavirus HKU1 (PCR) Not detected, Coronavirus 229E (PCR) Not detected, SARS-CoV-2 (PCR) Not detected, Coronavirus NL63 (PCR) Not detected, Human Metapneumovir PCR Not detected, Influenza A (H1) PCR Not detected, Influ A (H1N1/09) PCR Not detected, Influenza A (H3) PCR Not detected, Influenza Type A (PCR) Not detected, Influenza Type B (PCR) Not detected, M. pneumoniae (PCR) TNP, Parainfluenza 1 (PCR) Not detected, Parainfluenza 2 (PCR) Not detected, Parainfluenza 3 (PCR) Not detected, Parainfluenza 4 (PCR) Not detected, RSV (PCR) Not detected, E ntero/Rhino (PCR) Detected A 09/04/23 14:05: WBC 14.4 H, RBC 4.70, Hgb 14.2, Hct 43.2, MCV 91.9, MCH 30.1, MCHC 32.8, RDW 13.6, Plt Count 301, MPV 8.8, Neut % (Auto) 78.4, Lymph % (Auto) 11.3, [place] % (Auto) 7.3, Eos % (Auto) 2.3, Baso % (Auto) 0.6, Neut # (Auto) 11.3 H, Lymph # (Auto) 1.6, [place] # (Auto) 1.1 H, Eos # (Auto) 0.3, Baso # (Auto) 0.1, Sodium 136, Potassium 4.6, Chloride 102, Carbon Dioxide 26, Anion Gap 12.6, BUN 13, Creatinine 0.80, Estimated Creat Clear 139, Estimated GFR 100, Est GFR ( Amer) 121, Glucose 106 H, Calcium 9.7, Magnesium 1.7, Total Bilirubin 1.1, AST 48, ALT 32, Alkaline Phosphatase 49, Troponin I < 0.01, NT-Pro-B Natriuret Pep < 20.0, Total Protein 7.8, Albumin 4.2, Globulin 3.6 H, Albumin/Globulin Ratio 1.2 09/04/23 14:08: SARS-CoV-2 (PCR) Not detected, Influenza A Untype (PCR) Not detected, Influenza Type B (PCR) Not detected 09/04/23 14:19: VBG pH 7.44 H, VBG pCO2 35.3, VBG pO2 124.5 H, VBG HCO3 23.2, VBG Total CO2 24.3, VBG O2 Saturation 98.8 H, VBG Base Excess -1.1, VBG Lactic Acid 2.3 H 09/04/23 15:22: PT 11.5, INR 1.07, D-Dimer 0.36 Response Orders (Tests/Meds): ED MEDICATIONS Generic Name Dose Route Start Last Admin Trade Name Freq PRN Reason Stop Dose Admin Acetaminophen 650 mg 09/04/23 19:47 09/04/23 20:06 Acetaminophen 325mg Tab PO 10/04/23 19:46 650 mg Q4HP PRN Administration Fever or Mild Pain (1-3) Albuterol/Ipratropium 3 ml 09/04/23 18:00 09/05/23 06:19 Ipratropium/Albuterol 3 Ml Neb 10/04/23 17:59 3 ml Q6RT JUAN M Administration Amlodipine Besylate 5 mg 09/05/23 09:00 Amlodipine 5mg Tablet PO 10/05/23 08:59 DAILY JUAN M Aspirin 81 mg 09/05/23 09:00 Aspirin Ec 81mg Tablet PO 10/05/23 08:59 DAILY [facility] Atorvastatin Calcium 40 mg 09/05/23 09:00 Atorvastatin 40mg Tablet PO 10/05/23 08:59 DAILY [facility] Carvedilol 6.25 mg 09/04/23 21:00 09/04/23 20:05 Carvedilol 6.25mg Tablet PO 10/04/23 20:59 6.25 mg BID JUAN M Administration Enoxaparin Sodium 40 mg 09/04/23 18:05 09/04/23 18:22 Enoxaparin 40mg/0.4ml Syringe SQ 09/04/23 18:06 40 mg ONCE ONE Administration Fluticasone/Umeclidinium/Vilanterol 1 puff 09/05/23 09:00 Fluticasone/Umeclidin/Vilanter 200/62.5/25mcg Inhaler 10/05/23 08:59 DAILY [facility] Azithromycin 500 mg/ Sodium 250 mls @ 250 mls/hr 09/04/23 14:45 09/04/23 15:17 Chloride IV 09/14/23 14:44 250 mls/hr Q24H JUAN M Administration Ceftriaxone Sodium 1 gm/ 50 mls @ 100 mls/hr 09/04/23 14:45 09/04/23 15:11 Sodium Chloride IV 09/14/23 14:44 100 mls/hr Q24H JUAN M Administration Morphine Sulfate 2 mg 09/04/23 19:47 09/05/23 04:55 Morphine 2mg/Ml Syringe IV 10/04/23 19:46 2 mg Q4HP PRN Administration Moderate to Severe Pain (4-10) Pantoprazole Sodium 40 mg 09/04/23 21:00 09/04/23 20:06 Pantoprazole 40mg Tablet PO 10/04/23 20:59 40 mg HS JUAN M Administration Paroxetine HCl 20 mg 09/04/23 21:00 09/04/23 20:17 Paroxetine 20mg Tablet PO 10/04/23 20:59 Not Given HS JUAN M Prednisone 40 mg 09/05/23 09:00 Prednisone 20mg Tab PO 10/05/23 08:59 DAILY JUAN M Sodium Chloride 10 ml 09/04/23 14:08 Sodium Chloride 0.9% 10ml Flush Syringe IV 10/04/23 14:07 NEEDED PRN Maintain IV Site Sodium Chloride 3 ml 09/04/23 17:25 Sodium Chloride 3% 15ml Neb 10/04/23 17:24 ONCE PRN INDUCE SPUTUM COLLECTION Discontinued Medications Generic Name Dose Route Start Last Admin Trade Name Freq PRN Reason Stop Dose Admin Acetaminophen 1,000 mg 09/04/23 14:18 09/04/23 14:40 Acetaminophen 1,000mg/100ml Vial IV 09/04/23 14:19 1,000 mg ONCE ONE Administration Albuterol/Ipratropium 3 ml 09/04/23 14:18 09/04/23 17:22 Ipratropium/Albuterol 3 Ml Neb IH 09/04/23 14:19 Not Given ONCE ONE Dexamethasone Sodium Phosphate 10 mg 09/04/23 14:18 09/04/23 14:34 Dexamethasone 4mg/Ml 1ml Vial IM 09/04/23 14:19 Not Given ONCE ONE Dexamethasone Sodium Phosphate 10 mg 09/04/23 14:34 09/04/23 14:40 Dexamethasone 4mg/Ml 1ml Vial IV 09/04/23 14:35 10 mg ONCE ONE Administration Sodium Chloride 2,050 mls @ 1,025 mls/hr 09/04/23 14:52 09/04/23 15:58 Sod Chlor 0.9% 1000ml Bag 30 ml/kg infuse over 2 hr (2050 ml) 09/04/23 16:51 1,025 mls/hr IV Administration .Q2H ONE Ketorolac Tromethamine 15 mg 09/04/23 14:18 09/04/23 14:40 Ketorolac 30mg/Ml Vial IV 09/04/23 14:19 15 mg ONCE ONE Administration ORDERS Category Date Time Status XR chest 2V Stat Exams 09/04/23 14:08 Completed BNP [NT Pro Brain Natriuretic Pep.] Stat Lab 09/04/23 14:05 Completed Complete Blood Count Auto Diff AMLAB Lab 09/05/23 05:34 Received Complete Blood Count Auto Diff Stat Lab 09/04/23 14:05 Completed Comprehensive Metabolic Panel AMLAB Lab 09/05/23 05:34 Results Comprehensive Metabolic Panel Stat Lab 09/04/23 14:05 Completed D-Dimer Stat Lab 09/04/23 15:22 Completed Full Resp Panel w/COVID ([facility] Routine Lab 09/04/23 14:03 Completed INR [Prothrombin Time INR] Stat Lab 09/04/23 15:22 Completed Magnesium AMLAB Lab 09/05/23 05:34 Results Magnesium Stat Lab 09/04/23 14:05 Completed Rapid PCR Covid and Flu A/B Stat Lab 09/04/23 14:08 Completed Troponin I Q3H Lab 09/04/23 17:00 Completed Troponin I Q3H Lab 09/04/23 19:52 Completed Troponin I Stat Lab 09/04/23 14:05 Completed Blood Culture Stat Micro 09/04/23 14:48 Received VBG [Venous Blood Gas] Stat RT 09/04/23 14:19 Completed ECG Data Tracing #1: Attestation: I reviewed this ECG and interpreted as documented below: ECG Narrative: Normal sinus rhythm with a ventricular rate of [address] elevations concerning for ischemia. Normal axis and intervals. ECG initial impression date: 09/04/23 ECG initial impression time: 14:10
--- NOTE | 2023-09-04 14:08 | XR_ITS ---
FINAL REPORT TECHNIQUE: Chest PA & Lateral CLINICAL HISTORY: CHEST PAIN , SHORTNESS OF BREATH patient states he has severe copd, on oxygen at home. COMPARISON: 03/18/2023 FINDINGS: 2 views of the chest were performed. The heart size is normal. The mediastinum is within normal limits. There are coarse linear densities in both lungs, particularly in the right suprahilar region and both bases probably due to scar or chronic fibrosis. There are no pleural effusions. There is no pneumothorax. The bony thorax appears intact. IMPRESSION: Probable scar or chronic fibrosis as above. Reviewed, Interpreted and Dictated by Javed Calixto MD Transcribed by Cassandra Yi Authenticated and [facility]
[2023-09-04 14:15] LABS: Coronavirus 19, PCR Not Detected (NotDetected); Influenza A, PCR Not Detected (NotDetected); Influenza B, PCR Not Detected (NotDetected)
[2023-09-04 14:17] LABS: Basophils # 0.1 K/mm3 (0-0.2); Basophils % 0.6 % (0.1-2.0); Eosinophils # 0.3 K/mm3 (0.0-0.4); Eosinophils % 2.3 % (0.1-12.0); Hematocrit 43.2 % (42.0-52.0); Hemoglobin 14.2 g/dL (14.1-18.0); Lymphocytes # 1.6 K/mm3 (0.7-4.5); Lymphocytes % 11.3 % (10-50); Mean Corpuscular HGB Conc 32.8 g/dL (31.8-35.4); Mean Corpuscular Hemoglobin 30.1 pg (27.0-31.2); Mean Corpuscular Volume 91.9 fl (80-94); Mean Platelet Volume 8.8 fl (7.4-10.4); Monocytes # 1.1 K/mm3 (0.1-1.0); Monocytes % 7.3 % (1.7-9.3); Neutrophils # 11.3 K/mm3 (1.8-7.8); Neutrophils % 78.4 % (37.0-80.0); Platelet Count 301 K/mm3 (142-424); Red Cell Distribution Width 13.6 % (11.5-17.5); White Blood Count 14.4 K/mm3 (4.8-10.8)
[2023-09-04 14:25] LABS: Chloride 102 mmol/L (98-107)
[2023-09-04 14:26] LABS: Potassium 4.6 mmoL/L (3.5-5.1); Sodium 136 mmol/L (136-145)
[2023-09-04 14:28] LABS: Alanine Aminotransferase 32 U/L (12-78); Aspartate Amino Transferase 48 U/L (17-59); Blood Urea Nitrogen 13 mg/dl (9-20); Creatinine Clearance Estimated 139 mL/min (50-200); Estimated Glomerular Filt Rate 100 ml/min (>60); GFR (African American) 121 ML/MIN (>60)
[2023-09-04 14:29] LABS: Albumin Level 4.2 g/dl (3.5-5.0); Albumin/Globulin Ratio 1.2 (1.1-1.8); Alkaline Phosphatase 49 U/L (38-126); Anion Gap 12.6 mEq/L (5-15); Bilirubin,Total 1.1 mg/dl (0.2-1.3); Calcium 9.7 mg/dl (8.4-10.2); Carbon Dioxide 26 mmol/L (22.0-30.0); Globulin 3.6 g/dL (1.3-3.2); Glucose 106 mg/dl (74-100); Magnesium 1.7 mg/dl (1.6-2.3); Total Protein,Serum 7.8 g/dl (6.3-8.2)
--- NOTE | 2023-09-04 14:38 | PC.NURSE ---
PT TO XR
[2023-09-04] MEDS: KETOROLAC 30MG/ML VIAL 15 MG IV (14:40)
[2023-09-04] MEDS: ACETAMINOPHEN 1,000MG/100ML VIAL 1000 MG IV (14:40)
[2023-09-04] MEDS: DEXAMETHASONE 4MG/ML 1ML VIAL 10 MG IV (14:40)
[2023-09-04 14:54] LABS: Troponin I < 0.01 ng/ml (0.00-0.034)
--- NOTE | 2023-09-04 15:06 | PC.NURSE ---
rounded on pt and asked for a juice to drink. pt was given juice and had no other needs.
[2023-09-04] MEDS: CEFTRIAXONE SODIUM 1 GM in 0.9 % SODIUM CHLORIDE 50 ML IV (15:11)
[2023-09-04 15:12] LABS: VBG Base Excess -1.1 mmol/L (-2.4-2.3); VBG HCO3 23.2 mmol/L (23-30); VBG Oxygen Saturation 98.8 % (50-70); VBG PCO2 35.3 mmol/L (35-51); VBG PH 7.44 mmol/L (7.31-7.41); VBG PO2 124.5 mmol/L (28-40); VBG Total CO2 24.3 mmol/L (23-27)
[2023-09-04 15:14] LABS: Lactate Venous 2.3 mmol/L (0.4-2.0)
[2023-09-04] MEDS: AZITHROMYCIN 500 MG in 0.9 % SODIUM CHLORIDE 250 ML 250 MG IV (15:17)
[2023-09-04 15:45] LABS: INR 1.07 (0.9-1.1); Prothrombin Time 11.5 seconds (10.1-12.5)
[2023-09-04 15:50] LABS: NT Pro Brain Natriuretic Pep. < 20.0 pg/mL (0-125)
--- NOTE | 2023-09-04 15:57 | P.HP_ITS ---
History of Present Illness *Admission Date: 09/04/23 *Reason for visit:: chest tightness, cough *History of present illness: Ms. waite is a 57-year-old male with history of tobacco dependence, no longer smokes. Has COPD, hypertension, CAD. Wears oxygen 2 L at night, states he supposed to wear it all the time but only wears it at night. Generally does pretty good during the day. Presented to the ER because of worsening shortness of breath and chest tightness for the past 2 to 3 days. Worse last night. Denies fever or chills. Has had some nausea, body aches, diarrhea. On arrival to the ER, O2 sats were in the low 90s high 80s. Placed on 2 L oxygen with improved comfort. Initiated on breathing treatment. Chest imaging concerning for scarring versus airspace disease. Significant wheeze and respiratory distress. Concern for COPD exacerbation with increased oxygen requirement. Medicine consulted for admission. Of note, patient had temperature of 100.1 on arrival to the ER. On my evaluation, he is feeling better after receiving breathing treatments. Significant other at bedside. States chest discomfort is improving after breathing treatments. Alert and oriented x 4. Tolerating p.o. intake with no nausea. [facility] Disclaimer: The information contained in this section may have been updated after the patient was seen, as this information can be updated by other users. Medical History History of smoking 30 or more pack years Pulmonary emphysema Multiple lung nodules on CT Acute respiratory failure with hypoxia Hyperlipemia Atelectasis of both lungs COPD (chronic obstructive pulmonary disease) Asthma History of heart attack Hypertension Surgical History H/O hernia repair History of cholecystectomy Family History Brother Family history of myocardial infarction Mother Family history of myocardial infarction Father Family history of myocardial infarction Social History Smoking Status: Former smoker alcohol intake: never current occupational status: employed and other Travel in the last 8 weeks: None Review of Systems Review of Systems Review of systems (narrative): 14 point review of systems performed, pertinent positives and negatives as per HPI Meds Home Medications and Allergies Home Medications Medication Instructions Recorded Confirmed Type benzonatate 100 mg capsule 100 mg PO TIDP PRN Cough #30 caps 03/16/23 09/04/23 Rx fenofibrate nanocrystallized 145 145 mg PO DAILY Triglycerides 03/16/23 09/04/23 History mg tablet amlodipine 5 mg tablet 5 mg PO DAILY High Blood Pressure 03/18/23 09/04/23 History ferrous sulfate 324 mg (65 mg 324 mg PO DAILY Supplement 03/18/23 09/04/23 History iron) tablet,delayed release vitamin B complex 1 cap PO DAILY Supplement 03/18/23 09/04/23 History aspirin 81 mg tablet,delayed 81 mg PO DAILY #30 tabs 03/21/23 09/04/23 Rx release albuterol sulfate 90 mcg/actuation 2 inh inhalation QID PRN shortness 04/05/23 09/04/23 Rx aerosol inhaler of breath or wheezing 90 days #8.5 grams fluticasone fur. 200 mcg-umeclid 1 inh inhalation DAILY 90 days #90 04/05/23 09/04/23 Rx 62.5 mcg-vilant 25 mcg ea inhalat.powder (Trelegy Ellipta) atorvastatin 40 mg tablet 40 mg PO DAILY 09/04/23 09/04/23 History carvedilol 6.25 mg tablet 6.25 mg PO BID 09/04/23 09/04/23 History ipratropium 0.5 mg-albuterol 3 mg 3 ml inhalation BID 09/04/23 09/04/23 History (2.5 mg base)/3 mL nebulization soln multivitamin 1 tab PO DAILY 09/04/23 09/04/23 History omega-3 fatty acids 1 cap PO DAILY 09/04/23 09/04/23 History pantoprazole 40 mg tablet,delayed 40 mg PO HS 09/04/23 09/04/23 History release paroxetine HCl 20 mg tablet 20 mg PO HS 09/04/23 09/04/23 History New Prescriptions to Start Prescriptions: Allergies Allergy/AdvReac Type Severity Reaction Status Date / Time No Known Allergies Allergy Verified 04/05/23 13:02 Exam Data for Last 24 hours Vital signs and Labs for Last 24 Hours: Temp Pulse Resp BP Pulse Ox 100.1 F H 89 13 117/80 96 09/04/23 14:05 09/04/23 15:00 09/04/23 15:00 09/04/23 15:00 09/04/23 15:00 Laboratory Results - last 24 hr 09/04/23 14:05: WBC 14.4 H, RBC 4.70, Hgb 14.2, Hct 43.2, MCV 91.9, MCH 30.1, MCHC 32.8, RDW 13.6, Plt Count 301, MPV 8.8, Neut % (Auto) 78.4, Lymph % (Auto) 11.3, [place] % (Auto) 7.3, Eos % (Auto) 2.3, Baso % (Auto) 0.6, Neut # (Auto) 11.3 H, Lymph # (Auto) 1.6, [place] # (Auto) 1.1 H, Eos # (Auto) 0.3, Baso # (Auto) 0.1, Sodium 136, Potassium 4.6, Chloride 102, Carbon Dioxide 26, Anion Gap 12.6, BUN 13, Creatinine 0.80, Estimated Creat Clear 139, Estimated GFR 100, Est GFR ( Amer) 121, Glucose 106 H, Calcium 9.7, Magnesium 1.7, Total Bilirubin 1.1, AST 48, ALT 32, Alkaline Phosphatase 49, Troponin I < 0.01, NT-Pro-B Natriuret Pep < 20.0, Total Protein 7.8, Albumin 4.2, Globulin 3.6 H, Albumin/Globulin Ratio 1.2 09/04/23 14:08: SARS-CoV-2 (PCR) Not detected, Influenza A Untype (PCR) Not detected, Influenza Type B (PCR) Not detected 09/04/23 14:19: VBG pH 7.44 H, VBG pCO2 35.3, VBG pO2 124.5 H, VBG HCO3 23.2, VBG Total CO2 24.3, VBG O2 Saturation 98.8 H, VBG Base Excess -1.1, VBG Lactic Acid 2.3 H 09/04/23 15:22: PT 11.5, INR 1.07 I & O for Last 24 hours: Intake & Output 09/01/23 09/02/23 09/03/23 09/04/23 23:59 23:59 23:59 23:59 Weight 95.254 kg Constitutional Constitutional: no acute distress, obese, chronically ill appearing and cooperative *Routine HEENT Exam Head: Present normocephalic and atraumatic Eye: Present EOMI and PERRL ENT: Present mucous membranes moist *Routine Neck Exam Neck: Present supple *Routine Respiratory Exam Respiratory: Present prolonged expiratory phase and wheezes; Absent rhonchi or crackles *Routine Cardiovascular Exam Cardiovascular: Present RRR *Routine Abdominal Exam Abdominal: Present soft and normoactive bowel sounds; Absent tenderness *Routine Rectal Exam Rectal:: deferred *Routine Genitalia Exam Genitalia:: deferred *Routine Extremities Exam Extremities: Absent cyanosis, clubbing or edema *Routine Skin Exam Skin: Present intact; Absent cyanosis or erythema *Routine Neurological Exam Neurological: Present alert, oriented X3 and moving all extremities; Absent altered mental status Assessment and Plan *Assessment and plan (1) Acute exacerbation of chronic obstructive pulmonary disease: Status: Acute Category: Medical Code(s): J44.1 - Chronic obstructive pulmonary disease with (acute) exacerbation (2) Pulmonary emphysema: Status: Acute Qualifiers: Emphysema type: centrilobular Qualified Code(s): J43.2 - Centrilobular emphysema Category: Medical Code(s): J43.9 - Emphysema, unspecified (3) GERD (gastroesophageal reflux disease): Status: Acute Qualifiers: Esophagitis presence: without esophagitis Qualified Code(s): K21.9 - Gastro-esophageal reflux disease without esophagitis Category: Medical Code(s): K21.9 - Gastro-esophageal reflux disease without esophagitis (4) Hyperlipemia: Status: Acute Qualifiers: Hyperlipidemia type: unspecified Qualified Code(s): E78.5 - Hyperlipidemia, unspecified Category: Medical Code(s): E78.5 - Hyperlipidemia, unspecified (5) Hypertension: Status: Acute Qualifiers: Hypertension type: unspecified Qualified Code(s): I10 - Essential (primary) hypertension Category: Medical Code(s): I10 - Essential (primary) hypertension (6) History of smoking 30 or more pack years: Status: Acute Category: Social Hx Code(s): Z87.891 - Personal history of nicotine dependence Plan 57-year-old male with COPD, CAD, hypertension. Presented to the ER with worsening shortness of breath and chest tightness. Concern in the ER for possible sepsis given white cell count and new oxygen requirement however not frankly meeting sepsis criteria. Heart rate and respiratory rate normal. Chest imaging personally reviewed, concern for scarring over airspace disease. Discussed case with ER provider, request admission for continued IV antibiotics, weaning of oxygen, continued breathing treatments. Medicine agreed to admit for further management. Problems addressed as follows: COPD exacerbation - Continue supplemental oxygen, goal sats greater 90%. Currently on 2 L. -Received ceftriaxone and azithromycin in the ER, will continue this combo for now. Initiate prednisone 40 mg p.o. daily. -Continue DuoNeb scheduled every 6 hours. Resume Trelegy inhaler. -Comprehensive respiratory panel pending. Multiple sick contacts at work, concern for viral etiology for COPD exacerbation Chronic conditions: Hypertension: Continue amlodipine 5 mg daily, carvedilol 6.25 mg twice daily CAD: Continue aspirin 81 mg daily Hyperlipidemia: Continue Lipitor 40 mg daily GERD: Continue pantoprazole 40 mg nightly Anxiety: Continue Paxil 20 mg nightly Full code lovenox 40mg subcu once regular diet
[2023-09-04] MEDS: SODIUM CHLORIDE 1025 ML IV (15:58)
[2023-09-04 16:04] LABS: Adenovirus,PCR Not Detected (NotDetected); Coronavirus 19, PCR Not Detected (NotDetected); Coronavirus 229E Not Detected (NotDetected); Coronavirus NL63 Not Detected (NotDetected); Coronavirus OC43 Not Detected (NotDetected); Coronovirus HKU1,PCR Not Detected (NotDetected); Human Metapneumovirus Not Detected (NotDetected); Influenza A, PCR Not Detected (NotDetected); Influenza AH1, 2009 Not Detected (NotDetected); Influenza AH1, PCR Not Detected (NotDetected); Influenza AH3,PCR Not Detected (NotDetected); Influenza B, PCR Not Detected (NotDetected); Parainfluenza 1, PCR Not Detected (NotDetected); Parainfluenza 2, PCR Not Detected (NotDetected); Parainfluenza 3, PCR Not Detected (NotDetected); Parainfluenza 4, PCR Not Detected (NotDetected); Respiratory Syncytial Virus Not Detected (NotDetected)
--- NOTE | 2023-09-04 16:14 | PC.NURSE ---
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
--- NOTE | 2023-09-04 16:28 | PC.NURSE ---
REPORT CALLED TO SHAILA COOPER
--- NOTE | 2023-09-04 17:00 | PC.NURSE ---
PT TRANSPORTED TO [facility]IA
[2023-09-04 17:29] LABS: D-Dimer 0.36 ug/mL (0.0-0.5)
[2023-09-04] MEDS: IPRATROPIUM/ALBUTEROL 3 ML NEB IH ×2 (18:08→23:09)
[2023-09-04] MEDS: ENOXAPARIN 40MG/0.4ML SYRINGE 40 MG SQ (18:22)
[2023-09-04 18:36] LABS: Troponin I < 0.01 ng/ml (0.00-0.034)
[2023-09-04 19:14] LABS: Reflex Lactic Add Lactic Reflex
[2023-09-04 19:39] LABS: Rhinovirus/Enterovirus Detected (NotDetected)
[2023-09-04] MEDS: CARVEDILOL 6.25MG TABLET 6.25 MG PO (20:05)
[2023-09-04] MEDS: ACETAMINOPHEN 325MG TAB 650 MG PO (20:06)
[2023-09-04] MEDS: PANTOPRAZOLE 40MG TABLET 40 MG PO (20:06)
[2023-09-04 20:27] LABS: Lactic Acid Follow Up (RFLX 1) 2.2 mmol/L (0.7-2.1)
[2023-09-04 20:47] LABS: Troponin I < 0.01 ng/ml (0.00-0.034)
[2023-09-04 21:58] LABS: Reflex Lactic (2 hrs) Add Lactic Reflex
[2023-09-04 22:37] LABS: Lactic Acid Follow up (RFLX 2) 2.3 mmol/L (0.7-2.1)
[2023-09-05] VITALS (7 sets, daily range): BP systolic 102–125; BP diastolic 59–67; PULSE 74–84; RESP 18–25; TEMP 36.4–36.7; O2SAT 90–96; BMI 31.3
[2023-09-05] MEDS: MORPHINE 2MG/ML SYRINGE 2 MG IV ×3 (00:56→09:28)
[2023-09-05] MEDS: IPRATROPIUM/ALBUTEROL 3 ML NEB IH ×2 (06:19→10:57)
[2023-09-05 06:39] LABS: Lymphocytes # 0.8 K/mm3 (0.7-4.5); Monocytes # 0.5 K/mm3 (0.1-1.0); Red Cell Distribution Width 13.4 % (11.5-17.5)
[2023-09-05 06:47] LABS: Chloride 105 mmol/L (98-107); Sodium 135 mmol/L (136-145)
[2023-09-05 06:49] LABS: Basophils % 0.1 % (0.1-2.0); Hematocrit 39.3 % (42.0-52.0); Lymphocytes % 6.5 % (10-50); Mean Corpuscular Hemoglobin 30.1 pg (27.0-31.2); Mean Corpuscular Volume 93.8 fl (80-94); Mean Platelet Volume 8.6 fl (7.4-10.4); Monocytes % 4.3 % (1.7-9.3); Neutrophils # 10.5 K/mm3 (1.8-7.8); Platelet Count 270 K/mm3 (142-424); Red Blood Count 4.19 M/mm3 (4.60-6.20); White Blood Count 11.7 K/mm3 (4.8-10.8)
[2023-09-05 06:50] LABS: Alanine Aminotransferase 38 U/L (12-78); Albumin Level 3.4 g/dl (3.5-5.0); Albumin/Globulin Ratio 1.1 (1.1-1.8); Alkaline Phosphatase 65 U/L (38-126); Aspartate Amino Transferase 33 U/L (17-59); Bilirubin,Total 0.2 mg/dl (0.2-1.3); Blood Urea Nitrogen 14 mg/dl (9-20); Calcium 9.4 mg/dl (8.4-10.2); Carbon Dioxide 27 mmol/L (22.0-30.0); Creatinine Clearance Estimated 137 mL/min (50-200); Estimated Glomerular Filt Rate 100 ml/min (>60); GFR (African American) 121 ML/MIN (>60); Globulin 3.2 g/dL (1.3-3.2); Glucose 279 mg/dl (74-100); Total Protein,Serum 6.6 g/dl (6.3-8.2)
[2023-09-05 06:51] LABS: Magnesium 1.9 mg/dl (1.6-2.3)
[2023-09-05 07:15] LABS: Hemoglobin 12.6 g/dL (14.1-18.0)
[2023-09-05 07:17] LABS: MANUAL DIFFERENTIAL MANUAL DIFFERENTIAL (MANUAL DIFF)
--- NOTE | 2023-09-05 07:21 | EXP.DC.SUM ---
General Admission date:: 09/04/23 Discharge date: 09/05/23 HPI HPI HPI: Ms. waite is a 57-year-old male with history of tobacco dependence, no longer smokes. Has COPD, hypertension, CAD. Wears oxygen 2 L at night, states he supposed to wear it all the time but only wears it at night. Generally does pretty good during the day. Presented to the ER because of worsening shortness of breath and chest tightness for the past 2 to 3 days. Worse last night. Denies fever or chills. Has had some nausea, body aches, diarrhea. On arrival to the ER, O2 sats were in the low 90s high 80s. Placed on 2 L oxygen with improved comfort. Initiated on breathing treatment. Chest imaging concerning for scarring versus airspace disease. Significant wheeze and respiratory distress. Concern for COPD exacerbation with increased oxygen requirement. Medicine consulted for admission. Of note, patient had temperature of 100.1 on arrival to the ER. On my evaluation, he is feeling better after receiving breathing treatments. Significant other at bedside. States chest discomfort is improving after breathing treatments. Alert and oriented x 4. Tolerating p.o. intake with no nausea. Hospital Course Hospital Course Hospital Course: 57-year-old male with COPD, CAD, hypertension. Presented to the ER with worsening shortness of breath and chest tightness. Concern in the ER for possible sepsis given white cell count and new oxygen requirement however not frankly meeting sepsis criteria. Heart rate and respiratory rate normal. Chest imaging personally reviewed, concern for scarring over airspace disease. Discussed case with ER provider, request admission for continued IV antibiotics, weaning of oxygen, continued breathing treatments. Medicine agreed to admit for further management. Did well overnight. Viral panel returned positive for rhino/enterovirus. Pulmonology evaluated in the morning. Stable to discharge home to complete treatment. Problems addressed as follows: COPD exacerbation Rhino/enteroviral infection -Patient has oxygen at home. Will continue supplemental oxygen with goal saturation of 90%. Currently on 2 L. Presented with significant wheeze and shortness of breath. Consistent with COPD exacerbation secondary to viral pathogen. Will continue doxycycline to complete 5-day course of antibiotics for COPD exacerbation and continue oral prednisone 40 mg daily for total of 5 days. Evaluated by pulmonology. Recommend close follow-up in the outpatient setting. Continue Trelegy inhaler and breathing treatments as needed at home. Stable to discharge. Chronic conditions: Hypertension: Continue amlodipine 5 mg daily, carvedilol 6.25 mg twice daily CAD: Continue aspirin 81 mg daily Hyperlipidemia: Continue Lipitor 40 mg daily GERD: Continue pantoprazole 40 mg nightly Anxiety: Continue Paxil 20 mg nightly Exam Data for Last 24 hours Vital signs and Labs for Last 24 Hours: Temp Pulse Resp BP Pulse Ox O2 Del Method O2 Flow Rate 98 F 82 18 125/67 94 L Nasal Cannula 2 09/05/23 04:00 09/05/23 06:20 09/05/23 04:00 09/05/23 04:00 09/05/23 06:21 09/05/23 06:21 09/05/23 06:21 FiO2 28 09/04/23 18:34 Laboratory Results - last 24 hr 09/04/23 14:03: Chlamy pneumoniae PCR TNP, Adenovirus (PCR) Not detected, B. pertussis DNA (PCR) TNP, Coronavirus OC43 (PCR) Not detected, Coronavirus HKU1 (PCR) Not detected, Coronavirus 229E (PCR) Not detected, SARS-CoV-2 (PCR) Not detected, Coronavirus NL63 (PCR) Not detected, Human Metapneumovir PCR Not detected, Influenza A (H1) PCR Not detected, Influ A (H1N1/09) PCR Not detected, Influenza A (H3) PCR Not detected, Influenza Type A (PCR) Not detected, Influenza Type B (PCR) Not detected, M. pneumoniae (PCR) TNP, Parainfluenza 1 (PCR) Not detected, Parainfluenza 2 (PCR) Not detected, Parainfluenza 3 (PCR) Not detected, Parainfluenza 4 (PCR) Not detected, RSV (PCR) Not detected, Entero/Rhino (PCR) Detected A 09/04/23 14:05: WBC 14.4 H, RBC 4.70, Hgb 14.2, Hct 43.2, MCV 91.9, MCH 30.1, MCHC 32.8, RDW 13.6, Plt Count 301, MPV 8.8, Neut % (Auto) 78.4, Lymph % (Auto) 11.3, Trinity % (Auto) 7.3, Eos % (Auto) 2.3, Baso % (Auto) 0.6, Neut # (Auto) 11.3 H, Lymph # (Auto) 1.6, Trinity # (Auto) 1.1 H, Eos # (Auto) 0.3, Baso # (Auto) 0.1, Sodium 136, Potassium 4.6, Chloride 102, Carbon Dioxide 26, Anion Gap 12.6, BUN 13, Creatinine 0.80, Estimated Creat Clear 139, Estimated GFR 100, Est GFR ( Amer) 121, Glucose 106 H, Calcium 9.7, Magnesium 1.7, Total Bilirubin 1.1, AST 48, ALT 32, Alkaline Phosphatase 49, Troponin I < 0.01, NT-Pro-B Natriuret Pep < 20.0, Total Protein 7.8, Albumin 4.2, Globulin 3.6 H, Albumin/Globulin Ratio 1.2 09/04/23 14:08: SARS-CoV-2 (PCR) Not detected, Influenza A Untype (PCR) Not detected, Influenza Type B (PCR) Not detected 09/04/23 14:19: VBG pH 7.44 H, VBG pCO2 35.3, VBG pO2 124.5 H, VBG HCO3 23.2, VBG Total CO2 24.3, VBG O2 Saturation 98.8 H, VBG Base Excess -1.1, VBG Lactic Acid 2.3 H 09/04/23 15:22: PT 11.5, INR 1.07, D-Dimer 0.36 09/04/23 17:00: Troponin I < 0.01 09/04/23 19:52: Lactate 2.2 H, Troponin I < 0.01 09/04/23 22:19: Lactate 2.3 H 09/05/23 05:34: WBC 11.7 H, RBC 4.19 L, Hgb 12.6 L D, Hct 39.3 L, MCV 93.8, MCH 30.1, MCHC 32.0, RDW 13.4, Plt Count 270, MPV 8.6, Neut % (Auto) 89.0 H, Lymph % (Auto) 6.5 L, Trinity % (Auto) 4.3, Eos % (Auto) 0.0 L, Baso % (Auto) 0.1, Neut # (Auto) 10.5 H, Lymph # (Auto) 0.8, Trinity # (Auto) 0.5, Eos # (Auto) 0.0, Baso # (Auto) 0.0, Sodium 135 L, Potassium 4.0, Chloride 105, Carbon Dioxide 27, Anion Gap 7.0, BUN 14, Creatinine 0.80, Estimated Creat Clear 137, Estimated GFR 100, Est GFR ( Amer) 121, Glucose 279 H D, Calcium 9.4, Magnesium 1.9 D, Total Bilirubin 0.2, AST 33 D, ALT 38, Alkaline Phosphatase 65, Total Protein 6.6, Albumin 3.4 L D, Globulin 3.2, Albumin/Globulin Ratio 1.1 I & O for Last 24 hours: Intake & Output 09/02/23 09/03/23 09/04/23 09/05/23 23:59 23:59 23:59 23:59 Intake Total 270 / 750 480 / 480 Output Total 0 / 0 Balance 270 / 750 480 / 480 Weight 94.574 kg 93.803 kg Constitutional Constitutional: no acute distress, obese, chronically ill appearing and cooperative *Routine HEENT Exam Head: Present normocephalic Eye: Present EOMI and PERRL ENT: Present mucous membranes moist *Routine Neck Exam Neck: Present supple; Absent lymphadenopathy *Routine Respiratory Exam Respiratory: Present prolonged expiratory phase and wheezes (Minimal end expiratory); Absent rhonchi or crackles *Routine Cardiovascular Exam Cardiovascular: Present RRR *Routine Abdominal Exam Abdominal: Present soft and normoactive bowel sounds; Absent tenderness *Routine Rectal Exam Patient deferred: visual exam *Routine Exam Patient deferred: penile exam *Routine Extremities Exam Extremities: Absent cyanosis, clubbing or edema *Routine Skin Exam Skin: Present warm; Absent rash *Routine Neurological Exam Neurological: Present alert, oriented X3 and moving all extremities; Absent altered mental status Routine Psychiatric Exam Psychiatric: Present normal affect Results Data Completed and Pending Labs on day of discharge: Labs from last 24 hours 09/05/23 09/04/23 09/04/23 05:34 22:19 19:52 WBC 11.7 H RBC 4.19 L Hgb 12.6 L D Hct 39.3 L MCV 93.8 MCH 30.1 MCHC 32.0 RDW 13.4 Plt Count 270 MPV 8.6 Neut % (Auto) 89.0 H Lymph % (Auto) 6.5 L Trinity % (Auto) 4.3 Eos % (Auto) 0.0 L Baso % (Auto) 0.1 Neut # (Auto) 10.5 H Lymph # (Auto) 0.8 Trinity # (Auto) 0.5 Eos # (Auto) 0.0 Baso # (Auto) 0.0 PT INR D-Dimer VBG pH VBG pCO2 VBG pO2 VBG HCO3 VBG Total CO2 VBG O2 Saturation VBG Base Excess VBG Lactic Acid Sodium 135 L Potassium 4.0 Chloride 105 Carbon Dioxide 27 Anion Gap 7.0 BUN 14 Creatinine 0.80 Estimated Creat Clear 137 Estimated GFR 100 Est GFR ( Amer) 121 Glucose 279 H D Lactate 2.3 H 2.2 H Calcium 9.4 Magnesium 1.9 D Total Bilirubin 0.2 AST 33 D ALT 38 Alkaline Phosphatase 65 Troponin I < 0.01 NT-Pro-B Natriuret Pep Total Protein 6.6 Albumin 3.4 L D Globulin 3.2 Albumin/Globulin Ratio 1.1 Chlamy pneumoniae PCR Adenovirus (PCR) B. pertussis DNA (PCR) Coronavirus OC43 (PCR) Coronavirus HKU1 (PCR) Coronavirus 229E (PCR) SARS-CoV-2 (PCR) Coronavirus NL63 (PCR) Human Metapneumovir PCR Influenza A (H1) PCR Influ A (H1N1/09) PCR Influenza A (H3) PCR Influenza Type A (PCR) Influenza A Untype (PCR) Influenza Type B (PCR) M. pneumoniae (PCR) Parainfluenza 1 (PCR) Parainfluenza 2 (PCR) Parainfluenza 3 (PCR) Parainfluenza 4 (PCR) RSV (PCR) Entero/Rhino (PCR) 09/04/23 09/04/23 09/04/23 17:00 15:22 14:19 WBC RBC Hgb Hct MCV MCH MCHC RDW Plt Count MPV Neut % (Auto) Lymph % (Auto) Trinity % (Auto) Eos % (Auto) Baso % (Auto) Neut # (Auto) Lymph # (Auto) Trinity # (Auto) Eos # (Auto) Baso # (Auto) PT 11.5 INR 1.07 D-Dimer 0.36 VBG pH 7.44 H VBG pCO2 35.3 VBG pO2 124.5 H VBG HCO3 23.2 VBG Total CO2 24.3 VBG O2 Saturation 98.8 H VBG Base Excess -1.1 VBG Lactic Acid 2.3 H Sodium Potassium Chloride Carbon Dioxide Anion Gap BUN Creatinine Estimated Creat Clear Estimated GFR Est GFR ( Amer) Glucose Lactate Calcium Magnesium Total Bilirubin AST ALT Alkaline Phosphatase Troponin I < 0.01 NT-Pro-B Natriuret Pep Total Protein Albumin Globulin Albumin/Globulin Ratio Chlamy pneumoniae PCR Adenovirus (PCR) B. pertussis DNA (PCR) Coronavirus OC43 (PCR) Coronavirus HKU1 (PCR) Coronavirus 229E (PCR) SARS-CoV-2 (PCR) Coronavirus NL63 (PCR) Human Metapneumovir PCR Influenza A (H1) PCR Influ A (H1N1/09) PCR Influenza A (H3) PCR Influenza Type A (PCR) Influenza A Untype (PCR) Influenza Type B (PCR) M. pneumoniae (PCR) Parainfluenza 1 (PCR) Parainfluenza 2 (PCR) Parainfluenza 3 (PCR) Parainfluenza 4 (PCR) RSV (PCR) Entero/Rhino (PCR) 09/04/23 09/04/23 09/04/23 14:08 14:05 14:03 WBC 14.4 H RBC 4.70 Hgb 14.2 Hct 43.2 MCV 91.9 MCH 30.1 MCHC 32.8 RDW 13.6 Plt Count 301 MPV 8.8 Neut % (Auto) 78.4 Lymph % (Auto) 11.3 Trinity % (Auto) 7.3 Eos % (Auto) 2.3 Baso % (Auto) 0.6 Neut # (Auto) 11.3 H Lymph # (Auto) 1.6 Trinity # (Auto) 1.1 H Eos # (Auto) 0.3 Baso # (Auto) 0.1 PT INR D-Dimer VBG pH VBG pCO2 VBG pO2 VBG HCO3 VBG Total CO2 VBG O2 Saturation VBG Base Excess VBG Lactic Acid Sodium 136 Potassium 4.6 Chloride 102 Carbon Dioxide 26 Anion Gap 12.6 BUN 13 Creatinine 0.80 Estimated Creat Clear 139 Estimated GFR 100 Est GFR ( Amer) 121 Glucose 106 H Lactate Calcium 9.7 Magnesium 1.7 Total Bilirubin 1.1 AST 48 ALT 32 Alkaline Phosphatase 49 Troponin I < 0.01 NT-Pro-B Natriuret Pep < 20.0 Total Protein 7.8 Albumin 4.2 Globulin 3.6 H Albumin/Globulin Ratio 1.2 Chlamy pneumoniae PCR TNP Adenovirus (PCR) Not detected B. pertussis DNA (PCR) TNP Coronavirus OC43 (PCR) Not detected Coronavirus HKU1 (PCR) Not detected Coronavirus 229E (PCR) Not detected SARS-CoV-2 (PCR) Not detected Not detected Coronavirus NL63 (PCR) Not detected Human Metapneumovir PCR Not detected Influenza A (H1) PCR Not detected Influ A (H1N1/09) PCR Not detected Influenza A (H3) PCR Not detected Influenza Type A (PCR) Not detected Influenza A Untype (PCR) Not detected Influenza Type B (PCR) Not detected Not detected M. pneumoniae (PCR) TNP Parainfluenza 1 (PCR) Not detected Parainfluenza 2 (PCR) Not detected Parainfluenza 3 (PCR) Not detected Parainfluenza 4 (PCR) Not detected RSV (PCR) Not detected Entero/Rhino (PCR) Detected A DS: Diagnosis Discharge Diagnosis (1) Acute exacerbation of chronic obstructive pulmonary disease: Status: Acute Code(s): J44.1 - Chronic obstructive pulmonary disease with (acute) exacerbation (2) Pulmonary emphysema: Status: Acute Code(s): J43.9 - Emphysema, unspecified Qualifiers: Emphysema type: centrilobular Qualified Code(s): J43.2 - Centrilobular emphysema (3) GERD (gastroesophageal reflux disease): Status: Acute Code(s): K21.9 - Gastro-esophageal reflux disease without esophagitis Qualifiers: Esophagitis presence: without esophagitis Qualified Code(s): K21.9 - Gastro-esophageal reflux disease without esophagitis (4) Hyperlipemia: Status: Acute Code(s): E78.5 - Hyperlipidemia, unspecified Qualifiers: Hyperlipidemia type: unspecified Qualified Code(s): E78.5 - Hyperlipidemia, unspecified (5) Hypertension: Status: Acute Code(s): I10 - Essential (primary) hypertension Qualifiers: Hypertension type: unspecified Qualified Code(s): I10 - Essential (primary) hypertension (6) History of smoking 30 or more pack years: Status: Acute Code(s): Z87.891 - Personal history of nicotine dependence Meds Home Medications and Allergies Home Medications Medication Instructions Recorded Confirmed Type benzonatate 100 mg capsule 100 mg PO TIDP PRN Cough #30 caps 03/16/23 09/04/23 Rx fenofibrate nanocrystallized 145 145 mg PO DAILY Triglycerides 03/16/23 09/04/23 History mg tablet amlodipine 5 mg tablet 5 mg PO DAILY High Blood Pressure 03/18/23 09/04/23 History ferrous sulfate 324 mg (65 mg 324 mg PO DAILY Supplement 03/18/23 09/04/23 History iron) tablet,delayed release vitamin B complex 1 cap PO DAILY Supplement 03/18/23 09/04/23 History aspirin 81 mg tablet,delayed 81 mg PO DAILY #30 tabs 03/21/23 09/04/23 Rx release albuterol sulfate 90 mcg/actuation 2 inh inhalation QID PRN shortness 04/05/23 09/04/23 Rx aerosol inhaler of breath or wheezing 90 days #8.5 grams fluticasone fur. 200 mcg-umeclid 1 inh inhalation DAILY 90 days #90 04/05/23 09/04/23 Rx 62.5 mcg-vilant 25 mcg ea inhalat.powder (Trelegy Ellipta) atorvastatin 40 mg tablet 40 mg PO DAILY 09/04/23 09/04/23 History carvedilol 6.25 mg tablet 6.25 mg PO BID 09/04/23 09/04/23 History ipratropium 0.5 mg-albuterol 3 mg 3 ml inhalation BID 09/04/23 09/04/23 History (2.5 mg base)/3 mL nebulization soln multivitamin 1 tab PO DAILY 09/04/23 09/04/23 History omega-3 fatty acids 1 cap PO DAILY 09/04/23 09/04/23 History pantoprazole 40 mg tablet,delayed 40 mg PO HS 09/04/23 09/04/23 History release paroxetine HCl 20 mg tablet 20 mg PO AM 09/04/23 09/05/23 History doxycycline hyclate 100 mg capsule 100 mg PO BID 5 days #10 caps 09/05/23 Rx prednisone 20 mg tablet 40 mg (2 x 20 mg) PO DAILY 3 days 09/05/23 Rx #6 tabs ropinirole 0.25 mg tablet 0.25 mg PO HS 09/05/23 09/05/23 History New Prescriptions to Start Prescriptions: cristal hyclate Scott,Jony Noe Allergies Allergy/AdvReac Type Severity Reaction Status Date / Time No Known Allergies Allergy Verified 04/05/23 13:02 Discharge Plan Disposition Patient Disposition: Home, Self-Care Condition: Fair Follow up Plan Follow up with: Kristyn Valle MD [Referring] - 09/11/23 12:00 pm Krista Grissom MD [Physician] - 09/18/23 1:00 pm Prescriptions/Medication Reconciliation: New prednisone 20 mg Tablet 40 mg PO DAILY 3 Days Qty: 6 0RF doxycycline hyclate 100 mg capsule 100 mg PO BID 5 Days Qty: 10 0RF Continued Trelegy Ellipta 200-62.5-25 mcg blister with device 1 inh inhalation DAILY 90 Days Qty: 90 3RF albuterol sulfate 90 mcg/actuation HFA aerosol inhaler 2 inh inhalation QID PRN (Reason: shortness of breath or wheezing) 90 Days Qty: 8.5 2RF ferrous sulfate 324 mg (65 mg iron) tablet,delayed release (DR/EC) 324 mg PO DAILY Patient Comments: TAKE 1 TABLET BY MOUTH TWICE DAILY WITH MEALS amlodipine 5 mg Tablet 5 mg PO DAILY vitamin B complex Capsule 1 cap PO DAILY aspirin 81 mg Tablet,Delayed Release (Dr/Ec) 81 mg PO DAILY Qty: 30 0RF fenofibrate nanocrystallized 145 mg tablet 145 mg PO DAILY Patient Comments: TAKE 1 TABLET BY MOUTH ONCE DAILY benzonatate 100 mg capsule 100 mg PO TIDP PRN (Reason: Cough) Qty: 30 0RF carvedilol 6.25 mg tablet 6.25 mg PO BID Patient Comments: TAKE 1 TABLET BY MOUTH TWICE DAILY WITH MEALS paroxetine HCl 20 mg tablet 20 mg PO AM Patient Comments: TAKE 1 TABLET BY MOUTH ONCE DAILY IN THE MORNING atorvastatin 40 mg tablet 40 mg PO DAILY ipratropium-albuterol 0.5 mg-3 mg(2.5 mg base)/3 mL solution for nebulization 3 ml inhalation BID pantoprazole 40 mg tablet,delayed release (DR/EC) 40 mg PO HS multivitamin Tablet 1 tab PO DAILY omega-3 fatty acids Capsule 1 cap PO DAILY ropinirole 0.25 mg tablet 0.25 mg PO HS Patient Comments: TAKE 1 TABLET BY MOUTH ONCE DAILY 1 HOUR BEFORE BEDTIME Problem Reconciliation Problems Reviewed?: Yes Patient Discharge Instructions ACTIVITY: Continue current activity DIET: continue same diet Stand Alone Forms: [facility] Work Release Patient Instructions: DI for Chronic Obstructive Pulmonary Disease, DI for Pneumonia -- Adult Providers Primary Care Provider: Ju Paulino Provider: Jony Chavez Attending Provider: Jony Chavez
--- NOTE | 2023-09-05 07:22 | HMH.PHAINT1 ---
Pharmacy Intervention Comments: HOME MEDICATION LIST VERIFIED VIA OUTSIDE PHARMACY/OFFICE VISIT/FAMILY MEMBER
[2023-09-05 08:52] LABS: Lymphocytes % 9 % (10-50); Monocytes % 1 % (2-9); Neutrophils % 90 % (42-76); Platelet Estimate Normal; RBC Morphology Normal; Total Cells Counted 100
[2023-09-05] MEDS: ASPIRIN EC 81MG TABLET 81 MG PO (09:21)
[2023-09-05] MEDS: CARVEDILOL 6.25MG TABLET 6.25 MG PO (09:21)
[2023-09-05] MEDS: AMLODIPINE 5MG TABLET 5 MG PO (09:21)
[2023-09-05] MEDS: predniSONE 20MG TAB 40 MG PO (09:28)
--- NOTE | 2023-09-05 09:42 | P.CONS_ITS ---
History of Present Illness History of present illness: Mr. Rankin is a 57-year-old male prior smoker, diagnosis of severe COPD, asthma COPD overlap syndrome along with Trelegy inhaler, prior CT chest that did not show pulmonary micronodule worsening shortness of breath and chest discomfort. Admits sick contacts. [facility] Disclaimer: The information contained in this section may have been updated after the patient was seen, as this information can be updated by other users. Medical History (Updated 09/05/23 @ 10:38 by Krista Grissom MD) Viral pneumonia History of smoking 30 or more pack years Pulmonary emphysema Multiple lung nodules on CT Acute respiratory failure with hypoxia Hyperlipemia Atelectasis of both lungs COPD (chronic obstructive pulmonary disease) Asthma History of heart attack Hypertension Surgical History H/O hernia repair History of cholecystectomy Family History Brother Family history of myocardial infarction Mother Family history of myocardial infarction Father Family history of myocardial infarction Social History Smoking Status: Former smoker alcohol intake: never current occupational status: employed and other Travel in the last 8 weeks: None Review of Systems Constitutional Constitutional: Reports body ache(s) Eyes Eyes: Denies eye discharge, Denies dry eyes, Denies irritation and Denies itchy eyes ENT Ears, Nose, Mouth, and Throat: Denies epistaxis, Denies facial pain, Denies lip swelling and Denies throat swelling *Cardiovascular Cardiovascular: Reports dyspnea and Reports dyspnea on exertion *Respiratory Respiratory: Denies change in phlegm color, Reports chest congestion, Reports cough, Reports dyspnea, Reports dyspnea on exertion, Reports excessive phlegm production, Denies hemoptysis, Denies pain on inspiration, Denies pain with cough and Reports wheezing *Gastrointestinal Gastrointestinal: Denies abdominal pain, Denies belching and Denies cramping *Musculoskeletal Musculoskeletal: Reports back pain, Reports myalgias and Reports other (No small joint swelling or Pain) Psychiatric Psychiatric: Denies homicidal ideation and Denies suicidal ideation Endocrine Endocrine: Denies heat intolerance Hematologic/Lymphatic Hematologic/Lymphatic: Denies easy bleeding and Denies lymphadenopathy Allergic/Immunologic Allergic/Immunologic: Denies itchy eyes, Denies lip swelling, Denies throat swelling and Reports wheezing Pulmonology Exam Inpatient Vital signs and Labs for Last 24 Hours: Temp Pulse Resp BP Pulse Ox O2 Del Method O2 Flow Rate 98.1 F 74 25 H 108/66 L 95 Nasal Cannula 2 09/05/23 07:48 09/05/23 07:48 09/05/23 07:48 09/05/23 07:48 09/05/23 07:48 09/05/23 09:15 09/05/23 09:15 FiO2 28 09/04/23 18:34 Laboratory Results - last 24 hr 09/04/23 14:03: Chlamy pneumoniae PCR TNP, Adenovirus (PCR) Not detected, B. pertussis DNA (PCR) TNP, Coronavirus OC43 (PCR) Not detected, Coronavirus HKU1 (PCR) Not detected, Coronavirus 229E (PCR) Not detected, SARS-CoV-2 (PCR) Not detected, Coronavirus NL63 (PCR) Not detected, Human Metapneumovir PCR Not detected, Influenza A (H1) PCR Not detected, Influ A (H1N1/09) PCR Not detected, Influenza A (H3) PCR Not detected, Influenza Type A (PCR) Not detected, Influenza Type B (PCR) Not detected, M. pneumoniae (PCR) TNP, Parainfluenza 1 (PCR) Not detected, Parainfluenza 2 (PCR) Not detected, Parainfluenza 3 (PCR) Not detected, Parainfluenza 4 (PCR) Not detected, RSV (PCR) Not detected, E ntero/Rhino (PCR) Detected A 09/04/23 14:05: WBC 14.4 H, RBC 4.70, Hgb 14.2, Hct 43.2, MCV 91.9, MCH 30.1, MCHC 32.8, RDW 13.6, Plt Count 301, MPV 8.8, Neut % (Auto) 78.4, Lymph % (Auto) 11.3, Jessamine % (Auto) 7.3, Eos % (Auto) 2.3, Baso % (Auto) 0.6, Neut # (Auto) 11.3 H, Lymph # (Auto) 1.6, Jessamine # (Auto) 1.1 H, Eos # (Auto) 0.3, Baso # (Auto) 0.1, Sodium 136, Potassium 4.6, Chloride 102, Carbon Dioxide 26, Anion Gap 12.6, BUN 13, Creatinine 0.80, Estimated Creat Clear 139, Estimated GFR 100, Est GFR ( Amer) 121, Glucose 106 H, Calcium 9.7, Magnesium 1.7, Total Bilirubin 1.1, AST 48, ALT 32, Alkaline Phosphatase 49, Troponin I < 0.01, NT-Pro-B Natriuret Pep < 20.0, Total Protein 7.8, Albumin 4.2, Globulin 3.6 H, Albumin/Globulin Ratio 1.2 09/04/23 14:08: SARS-CoV-2 (PCR) Not detected, Influenza A Untype (PCR) Not detected, Influenza Type B (PCR) Not detected 09/04/23 14:19: VBG pH 7.44 H, VBG pCO2 35.3, VBG pO2 124.5 H, VBG HCO3 23.2, VBG Total CO2 24.3, VBG O2 Saturation 98.8 H, VBG Base Excess -1.1, VBG Lactic Acid 2.3 H 09/04/23 15:22: PT 11.5, INR 1.07, D-Dimer 0.36 09/04/23 17:00: Troponin I < 0.01 09/04/23 19:52: Lactate 2.2 H, Troponin I < 0.01 09/04/23 22:19: Lactate 2.3 H 09/05/23 05:34: WBC 11.7 H, RBC 4.19 L, Hgb 12.6 L D, Hct 39.3 L, MCV 93.8, MCH 30.1, MCHC 32.0, RDW 13.4, Plt Count 270, MPV 8.6, Neut % (Auto) 89.0 H, Lymph % (Auto) 6.5 L, Jessamine % (Auto) 4.3, Eos % (Auto) 0.0 L, Baso % (Auto) 0.1, Neut # (Auto) 10.5 H, Lymph # (Auto) 0.8, Jessamine # (Auto) 0.5, Eos # (Auto) 0.0, Baso # (Auto) 0.0, Total Counted 100, Neutrophils % (Manual) 90 H, Lymphocytes % (Manual) 9 L, Monocytes % (Manual) 1 L, Platelet Estimate Normal, RBC Morphology Normal, Sodium 135 L, Potassium 4.0, Chloride 105, Carbon Dioxide 27, Anion Gap 7.0, BUN 14, Creatinine 0.80, Estimated Creat Clear 137, Estimated GFR 100, Est GFR ( Amer) 121, Glucose 279 H D, Calcium 9.4, Magnesium 1.9 D, Total Bilirubin 0.2, AST 33 D, ALT 38, Alkaline Phosphatase 65, Total Protein 6.6, A lbumin 3.4 L D, Globulin 3.2, Albumin/Globulin Ratio 1.1 I & O for Labs for Last 24 Hours: Intake & Output 09/02/23 09/03/23 09/04/23 09/05/23 23:59 23:59 23:59 23:59 Intake Total 270 / 750 730 / 730 Output Total 0 / 0 0 / 0 Balance 270 / 750 730 / 730 Weight 208 lb 8 oz 206 lb 12.8 oz Microbiology Reports for the Last 24 Hours: Microbiology 03/20/23 10:45 Sputum - Expectorated Sputum LAYR Preparation - Final Constitutional: Present moderate distress Head: Present normocephalic and atraumatic ENT: Present normal exam, normal oropharynx and mucous membranes moist Neck: Present normal inspection and full ROM Respiratory: Present respiratory distress, wheezes, diminished air movement and able to speak in complete sentences Cardiac: Present S1/S2, Tachycardia and radial pulses present GI: Present distention; Absent soft, tenderness or guarding Skin: Present intact; Absent cyanosis or jaundice Neuro: Present alert, awake and oriented x 3 Extremities: Present normal inspection; Absent clubbing or cyanosis Psychiatric: Present normal affect and cooperative Meds Home Medications and Allergies Home Medications Medication Instructions Recorded Confirmed Type benzonatate 100 mg capsule 100 mg PO TIDP PRN Cough #30 caps 03/16/23 09/04/23 Rx fenofibrate nanocrystallized 145 145 mg PO DAILY Triglycerides 03/16/23 09/04/23 History mg tablet amlodipine 5 mg tablet 5 mg PO DAILY High Blood Pressure 03/18/23 09/04/23 History ferrous sulfate 324 mg (65 mg 324 mg PO DAILY Supplement 03/18/23 09/04/23 History iron) tablet,delayed release vitamin B complex 1 cap PO DAILY Supplement 03/18/23 09/04/23 History aspirin 81 mg tablet,delayed 81 mg PO DAILY #30 tabs 03/21/23 09/04/23 Rx release albuterol sulfate 90 mcg/actuation 2 inh inhalation QID PRN shortness 04/05/23 09/04/23 Rx aerosol inhaler of breath or wheezing 90 days #8.5 grams fluticasone fur. 200 mcg-umeclid 1 inh inhalation DAILY 90 days #90 04/05/23 09/04/23 Rx 62.5 mcg-vilant 25 mcg ea inhalat.powder (Trelegy Ellipta) atorvastatin 40 mg tablet 40 mg PO DAILY 09/04/23 09/04/23 History carvedilol 6.25 mg tablet 6.25 mg PO BID 09/04/23 09/04/23 History ipratropium 0.5 mg-albuterol 3 mg 3 ml inhalation BID 09/04/23 09/04/23 History (2.5 mg base)/3 mL nebulization soln multivitamin 1 tab PO DAILY 09/04/23 09/04/23 History omega-3 fatty acids 1 cap PO DAILY 09/04/23 09/04/23 History pantoprazole 40 mg tablet,delayed 40 mg PO HS 09/04/23 09/04/23 History release paroxetine HCl 20 mg tablet 20 mg PO AM 09/04/23 09/05/23 History prednisone 20 mg tablet 40 mg (2 x 20 mg) PO DAILY 3 days 09/05/23 Rx #6 tabs ropinirole 0.25 mg tablet 0.25 mg PO HS 09/05/23 09/05/23 History New Prescriptions to Start Prescriptions: Jony Major Allergies Allergy/AdvReac Type Severity Reaction Status Date / Time No Known Allergies Allergy Verified 04/05/23 13:02 Results Laboratory Findings 09/05/23 05:34 09/05/23 05:34 PT/INR, D-dimer PT 11.5 seconds (10.1-12.5) 09/04/23 15:22 INR 1.07 (0.9-1.1) 09/04/23 15:22 D-Dimer 0.36 ug/mL (0.0-0.5) 09/04/23 15:22 Abnormal lab findings: Abnormal Labs 09/04/23 09/04/23 09/04/23 14:03 14:05 14:19 WBC 14.4 H RBC Hgb Hct Neut % (Auto) Lymph % (Auto) Eos % (Auto) Neut # (Auto) 11.3 H Jessamine # (Auto) 1.1 H Neutrophils % (Manual) Lymphocytes % (Manual) Monocytes % (Manual) VBG pH 7.44 H VBG pO2 124.5 H VBG O2 Saturation 98.8 H VBG Lactic Acid 2.3 H Sodium Glucose 106 H Lactate Albumin Globulin 3.6 H Entero/Rhino (PCR) Detected A 09/04/23 09/04/23 09/05/23 19:52 22:19 05:34 WBC 11.7 H RBC 4.19 L Hgb 12.6 L D Hct 39.3 L Neut % (Auto) 89.0 H Lymph % (Auto) 6.5 L Eos % (Auto) 0.0 L Neut # (Auto) 10.5 H Jessamine # (Auto) Neutrophils % (Manual) 90 H Lymphocytes % (Manual) 9 L Monocytes % (Manual) 1 L VBG pH VBG pO2 VBG O2 Saturation VBG Lactic Acid Sodium 135 L Glucose 279 H D Lactate 2.2 H 2.3 H Albumin 3.4 L D Globulin Entero/Rhino (PCR) Assessment and Plan *Assessment and plan (1) Community acquired pneumonia: Status: Acute Category: Medical Code(s): J18.9 - Pneumonia, unspecified organism (2) Acute exacerbation of chronic obstructive pulmonary disease: Status: Acute Category: Medical Code(s): J44.1 - Chronic obstructive pulmonary disease with (acute) exacerbation (3) Viral pneumonia: Status: Acute Category: Medical Code(s): J12.9 - Viral pneumonia, unspecified Plan Mr. Rankin is a 57-year-old male prior smoker, diagnosis of severe COPD, asthma COPD overlap syndrome along with Trelegy inhaler, prior CT chest that did not show pulmonary micronodule worsening shortness of breath and chest discomfort. Admits sick contacts. Low-grade fever with a Tmax of 100.1 upon admission. Neutrophilic leukocytosis. Hemodynamically stable. Venous blood gas upon admission did not show any evidence of hypoxic/hypercarbic respiratory failure. Chest x-ray upon admission relatively stable from with no dense consolidative changes. Continue to show emphysematoud changes along with right upper lobe interstitial changes. Patient on admission was initiated on treatment for COPD exacerbation and community-acquired pneumonia. On examination patient appeared to be in respiratory distress. Bilateral mild wheezing on auscultation. On room air saturating 94%. Plan: Antibiotics - Doxycycline to complete total of 5-day course upon discharge Continue prednisone 40 mg daily x 5 days Continue Trelegy 100 inhaler along with DuoNebs every 6 hours on as-needed basis Will follow the patient in pulmonary clinic 5 to 7 days post discharge.
[2023-09-05] MEDS: FLUTICASONE/UMECLIDIN/VILANTER 200/62.5/25MCG INHALER 1 PUFF IH (10:57)
--- NOTE | 2023-09-05 11:24 | HMH.PHAINT1 ---
Pharmacy Intervention Comments: DISCHARGE MEDICATION COUNSELING PROVIDED TO PATIENT. THE INDICATION AND POSSIBLE SIDE EFFECTS WERE DISCUSSED FOR PREDNISONE AND DOXYCYCLINE. PATIENT VERBALIZED UNDERSTANDING AND HAD NO FURTHER QUESTIONS.
--- NOTE | 2023-09-06 12:58 | SW/DCPLANNER ---
Follow up phone call w/ this patient: patient is doing well at home and was able to pickling solution maker all of her medication. Patient is aware of follow up appointment w/ Pulm. No further assistance needed at this time.
== END 2023-09-05 15:08 | disposition home or self-care (01) ==
LOC: ER 15:22 → 2ND 16:20
PROVIDERS: Emergency Medicine; Physician Assistant; Admitting Provider Internal Medicine Adolescent Medicine; Emergency Provider Emergency Medicine; PCP Family Medicine Sports Medicine; Visit Provider Internal Medicine Adolescent Medicine
DX: J44.1 Chronic obstructive pulmonary disease with (acute) exacerbation (principal); I10 Essential (primary) hypertension; Z87.891 Personal history of nicotine dependence; J18.9 Pneumonia, unspecified organism; Z99.81 Dependence on supplemental oxygen; R06.02 Shortness of breath; E78.5 Hyperlipidemia, unspecified; Z79.899 Other long term (current) drug therapy
CPT/HCPCS: 36415; 71046; 80053; 82803; 83605; 83735; 83880; 84484; 85007; 85025; 85378; 85610; 87040; 87070; 87205; 87632; 87635; 87636; 93005; 94640; 94760; 94761; 99285; G0378; J0131; J0456; J0696

== ENCOUNTER 2024-12-08 07:07 | Outpatient (CLI) | payer OTHER, SELFPAY ==
--- OUTSIDE RECORDS SUMMARY | 2024-12-08 07:09 | XMS_ITS | Referral Summary ---
Author Organization [employer] Address [address] [place] [address] Care Team Providers Care Cook Fish Eggs Name Role Phone Kristyn Valle DO Primary Care Provider [phone] Allergies No known active allergies Medications amLODIPine (NORVASC) 5 MG tablet Take 1.5 tablets by mouth daily. 2 Active carvediloL (COREG) 6.25 MG tablet Take 1 tablet by mouth 2 (two) times daily with breakfast and dinner. 2 Active fenofibrate (TRICOR) 145 MG tablet Take 1 tablet by mouth daily. 2 Active omeprazole (PriLOSEC) 40 MG capsule Take 1 capsule by mouth daily. 2 Active rOPINIRole (REQUIP) 0.25 MG tablet Take 0.25 mg by mouth. 2 Active sucralfate (CARAFATE) 1 gram tablet Take 1 tablet by mouth 3 (three) times daily. 3 Active traMADoL (ULTRAM) 50 mg tablet Take 50 mg by mouth. 3 Active ferrous sulfate 324 mg (65 mg iron) TbEC Take 1 tablet (324 mg total) by mouth every other day. 0 3 Active fluticasone-ume clidin-vilanter (Trelegy Ellipta) 200-62.5-25 mcg DsDv Inhale 1 puff by mouth via inhaler. 3 Active aspirin 81 MG EC tablet Take 1 tablet (81 mg total) by mouth in the morning. Active Active Problems Problem Noted Date Diagnosed Date HTN (hypertension) 09/28/2022 Coronary artery disease 09/28/2022 Hyperlipidemia 09/28/2022 Acute respiratory failure with hypoxia COPD, severe 07/19/2022 Resolved Problems Problem Noted Date Diagnosed Date Resolved Date Chest pain 07/19/2022 09/28/2022 Weakness 07/19/2022 09/28/2022 Immunizations Name Administration Dates Next Due Tdap 02/20/2024 Social History Tobacco Use Types Packs/Day Years Used Date Smoking Tobacco: Former Cigarettes Q uit: 06/11/1999 Alcohol Use Standard Drinks/Week Comments Yes 1 (1 standard drink = 0.6 oz pur e alcohol) daily Food Insecurity Answer Date Recorded Food run out past 12 months Not on file 06/11 Food did not last past 12 months Not on file 06/29/2023 Employment Answer Date Recorded Help finding and keeping a job Not on file 0 06/29/2023 Family and Community Support Answer Dale e Recorded Help with Day to Day Activities Not on file 06/29/2023 Feeling Lonely or Isolated Not on file 06/29 Educational Attainment Answer Date Justin rded Speak language other than Vietnamese at home Not on file 06/29/2023 Want help with school or training Not on file 06/29/2023 Substance Use Answer Date Recorded Used prescription meds for non-medical reasons N ot on file 06/29/2023 Used illegal drugs past 12 months Not on file 06/29/2023 Sex and Gender Information Value Date Recorded Sex Assigned at Not on file Legal Sex Male 5:55 PM CDT Gender Identity Not on file Sexual Orientation Not on file Last Filed Vital Signs Vital Sign Reading Time Taken Comments Blood Pressure 141/86 02/20/2024 1:45 PM EDT Pulse 78 02/20/2024 1:45 PM EDT Temperature 37.1 C (98.7 F) 02/20/2024 12:16 PM EDT Respiratory Rate 22 02/20/2024 1:45 PM EDT Oxygen Saturation 98% 02/20/2024 1:45 PM EDT Inhaled Oxygen Concentration - - Weight 94.8 kg (209 lb) 02/20/2024 12:16 PM EDT Height 172.7 cm (5' 8 ) 02/20/2024 12:16 PM EDT Body Mass Index 31.78 02/20/2024 12:16 PM EDT Plan of Treatment Not on file Advance Directives For more information, please contact: [phone] * Full Code (Latest Code Status on File) Date Activated Date Inactivated Comments 07/18/2022 3:49 PM 07/19/2022 2:16 PM * Full Code Date Activated Date Inactivated Comments 07/18/2022 1:28 PM 07/18/2022 3:48 PM If no pulse: N o intervention If has pulse: Use intubation, mechanical ventilation, defibrillation, ACLS medications, or cardioversion as indicated. Call ACETYLENE PLANT OPERATOR * Full Code Date Activated Date Inactivated Comments 07/18/2022 12:23 PM 07/18/2022 1:27 PM Care Teams Cook Fish Eggs Relationship Specialty Start Date End Date Kristyn Valle DO [address] [place] [address] PCP - General Family Medicine 07/19/22
--- OUTSIDE RECORDS SUMMARY | 2024-12-08 07:09 | XMS_ITS | Clinical Summary ---
Author Organization [employer] Address [address] [place] [address] Care Team Providers Care Preparator Name Role Phone Kristyn Valle DO Primary Care Provider [phone] Allergies No known active allergies Medications amLODIPine [...] Name Administration Dates Next Due Tdap 02/20/2024 Family History Medical History Relation Name Comments Heart attack Father Heart attack Mother Relation Name Status Comments Father Mother Social History Tobacco Use Types Packs/Day Years [...] Date Justin rded Speak language other than Macanese at home Not on file 06/29/2023 Want [...] 02/20/2024 12:16 PM EDT Plan of Treatment Health Maintenance Due Date Last Done Comments CT Colonography 1966 Colonoscopy 1966 Colorectal Cancer Screening 1966 FOBT/FIT 1966 Fit-DNA (Cologuard) 1966 Sigmoidoscopy 1966 Depression Screening (12+) 1978 HIV Screening 1981 Hepatitis C Screening 1984 Lipid Panel 2001 Shingles Vaccine (Zoster) (1 of 2) 2016 COVID-19 VACCINE (3 - season) 2024, 02/07/2021 Influenza Vaccine (Season Ended) 2025 Tobacco Cessation Counseling and Screening (12+) 02/19/2025 02/20/2024 DTAP/TDAP/TD VACCINES (2 - Td or Tdap) 02/19/2034 Pneumococcal 50+ years Completed 06/19/2023, 2020 Advance Directives For more information, please contact: [phone] * Full Code (Latest Code Status on File) Date Activated Date Inactivated Comments 07/18/2022 3:49 PM 07/19/2022 2:16 PM * Full Code Date Activated Date Inactivated Comments 07/18/2022 1:28 PM 07/18/2022 3:48 PM If no pulse: N o intervention If has pulse: Use intubation, mechanical ventilation, defibrillation, ACLS medications, or cardioversion as indicated. Call BIBLICAL STUDIES PROFESSOR * Full Code Date Activated Date Inactivated Comments 07/18/2022 12:23 PM 07/18/2022 1:27 PM Care Teams Preparator Relationship Specialty Start Date End Date Kristyn Valle DO [address] [place] [address] PCP - General Family Medicine 07/19/22
--- OUTSIDE RECORDS SUMMARY | 2024-12-08 07:09 | XMS_ITS | Encounter Summary ---
Author Organization [facility] Address [address] [place] [address] Care Team Providers Care Captain/Airline Pilot Name Role Phone Kristyn Valle DO Primary Care Provider [phone] Reason for Visit * Reason Onset Date Comments Med Refill 11/14/2024 Encounter Details Date Type Department Care Team (Late st Contact Info) Description 11/14/2024 Telephone [facility] [address] [facility] [place] [address] Kristyn Valle DO [address] [facility] [address] Med Refill Social History Tobacco Use Types Packs/Day Years Used Date Smoking Tobacco: Former Cigarettes 2 15 1 965 - 1980 Smokeless Tobacco: Never Alcohol Use Standard Drinks/Week Comments Yes 0 (1 standard drink = 0.6 oz pur e alcohol) 2 beers a day PHQ-2 Answer Date Recorded Retired PHQ-9: Brief Depression Severity Measure Score 0 07/25/2022 PHQ-2 Answer Date Recorded Patient Health Questionnaire-2 Score 0 06/12/2024 Sex and Gender Information Value Date Recorded Sex Assigned at Not on file Legal Sex Male 8:36 AM EDT Gender Identity Not on file Sexual Orientation Not on file documented as of this encounter Miscellaneous Notes * Telephone Encounter - Kristyn Valle DO - 11/18/2024 6:11 PM EDT Dose increased to 0.5 mg. * Telephone Encounter - Rosemarie Jones RegSched Rep - 11/18/2024 12:00 PM EDT Patients called back and stated his restless leg has gotten worse is why the medicine is beingrequested. * Telephone Encounter - Elsa Peterson LPN - 11/18/2024 11:29 AM EDT Lm for pt/ to return call * Telephone Encounter - Kristyn Valle DO - 11/17/2024 6:15 PM EDT Why is dose change being requested? * Telephone Encounter - Gloria Caballero RegSched Rep - 11/14/2024 4:19 PM EDT Caller: SINAI PICKARD Relationship: Emergency Contact Best call back number: [phone] What medication are you requesting: rOPINIRole (REQUIP) If a prescription is needed, what is your preferred pharmacy and phone number: [facility] [place] [place] [address] [facility] [phone] [facility] [phone] FX Additional notes:PATIENTS SPOUSE STATES THE PATIENT IS REQUESTING THE NEXT DOSE AND A REFILL ON THEPRESCRIPTION documented in this encounter Plan of Treatment Upcoming Encounters Date Type Department Care Team (Late st Contact Info) Description 12/11/2024 8:00 AM EDT Office Visit [facility] [address] [phone] Kristyn Valle DO [address] [place] [address] documented as of this encounter Visit Diagnoses Diagnosis RLS (restless legs syndrome) Restless legs syndrome (RLS) documented in this encounter Care Teams Captain/Airline Pilot Relationship Specialty Start Date End Date Kristyn Valle DO [address] [place] [address] PCP - General Family Medicine 05/11/21 documented as of this encounter
--- OUTSIDE RECORDS SUMMARY | 2024-12-08 07:09 | XMS_ITS | Clinical Summary ---
[facility] Organization [facility] Address [address] [place] [address] Care Team Providers Care Piano Maker Name Role Phone Kristyn Valle Primary Care Provider Allergies No known active allergies Medications Fluticasone-Umecli din-Vilant (Trelegy Ellipta) 200-62.5-25 MCG/ACT aerosol powderIndications: Pulmonary emphysema, unspecified emphysema type Inhale 1 puff Daily. 60 each 11 08/19/19 23 Active levocetirizine (XYZAL) 5 MG tabletIndications: Non-seasonal allergic rhinitis, unspecified trigger Take 1 tablet by mouth Every Evening. 90 tablet 3 08/19/19 23 Active fluticasone (FLONASE) 50 MCG/ACT nasal sprayIndications:N on-seasonal allergic rhinitis, unspecified trigger 2 sprays into the nostril(s) as directed by provider Daily. 16 g 11 08/19/19 23 Active Additional Information Patient not taking.Reported on 09/01/2024 ferrous sulfate 324 (65 Fe) MG tablet delayed-release EC tabletIndications: Iron deficiency anemia, unspecified iron deficiency anemia type Take 1 tablet by mouth 2 (Two) Times a Day With Meals. 60 tablet 2 12/29/19 23 Active B Complex Vitamins (VITAMIN B COMPLEX PO) 1 capsule. 03/18/20 23 Active aspirin 81 MG EC tabletIndications: History of non-ST elevation myocardial infarction (NSTEMI) Take 1 tablet by mouth Daily. 90 tablet 3 06/19/19 24 Active atorvastatin (Lipitor) 40 MG tabletIndications: Mixed hyperlipidemia Take 1 tablet by mouth Every Night. 90 tablet 3 06/19/19 24 Active albuterol sulfate HFA (Ventolin HFA) 108 (90 Base) MCG/ACT inhaler Inhale 2 puffs Every 6 (Six) Hours As Needed for Wheezing. 54 g 10 07/22/19 25 Active amLODIPine (NORVASC) 10 MG tabletIndications: Primary hypertension Take 1 tablet by mouth Daily. 90 tablet 1 07/25/19 25 Active carvedilol (COREG) 6.25 MG tabletIndications: Primary hypertension Take 1 tablet by mouth 2 (Two) Times a Day With Meals. 180 tablet 1 07/25/19 25 Active fenofibrate (TRICOR) 145 MG tabletIndications: Mixed hyperlipidemia Take 1 tablet by mouth Daily. 90 tablet 1 07/25/19 25 Active ibuprofen (ADVIL,MOTRIN) 800 MG tabletIndications: Chronic pain of both knees Take 1 tablet by mouth Every 8 (Eight) Hours As Needed for Mild Pain. 270 tablet 1 07/25/19 25 Active ipratropium-albute rol (DUO-NEB) 0.5-2.5 mg/3 ml nebulizerIndicatio ns:Asthma-COPD overlap syndrome Take 3 mL by nebulization 4 (Four) Times a Day. 540 mL 07/25/19 25 Active nitroglycerin (NITROSTAT) 0.4 MG SL tabletIndications: History of non-ST elevation myocardial infarction (NSTEMI) Place 1 tablet under the tongue Every 5 (Five) Minutes As Needed for Chest Pain. Take no more than 3 doses in 15 minutes. 30 tablet 1 07/25/19 25 Active pantoprazole (PROTONIX) 40 MG EC tabletIndications: Gastroesophageal reflux disease, unspecified whether esophagitis present Take 1 tablet by mouth Daily. 90 tablet 1 07/25/19 25 Active PARoxetine (PAXIL) 20 MG tabletIndications: Irritability Take 1 tablet by mouth Every Morning. 90 tablet 1 07/25/19 25 Active predniSONE (DELTASONE) 10 MG (21) dose packIndications:CO PD with exacerbation Use as directed on package 21 tablet 09/02/19 25 Active traMADol (ULTRAM) 50 MG tabletIndications: Chronic pain of both knees Take 1 tablet by mouth Every 8 (Eight) Hours As Needed for Moderate Pain. 30 tablet 2 11/19/19 25 Active rOPINIRole (REQUIP) 0.5 MG tabletIndications: RLS (restless legs syndrome) Take 1 tablet by mouth Every Night. Take 1 hour before bedtime. 90 tablet 1 11/19/19 25 Active traMADol (ULTRAM) 50 MG tabletIndications: Chronic pain of both knees Take 1 tablet by mouth Every 8 (Eight) Hours As Needed for Moderate Pain. 30 tablet 2 07/22/19 25 025 Discontin ued(Reord er) rOPINIRole (REQUIP) 0.25 MG tabletIndications: RLS (restless legs syndrome) Take 1 tablet by mouth Daily. Take 1 hour before bedtime. 90 tablet 1 07/25/19 25 025 Discontin ued(Reord er) Active Problems Problem Noted Date Diagnosed Date Asthma-COPD overlap syndrome 11/17/2022 H/O non-ST elevation myocardial infarction (NSTE DC) 08/27/2022 Primary hypertension 05/11/2021 Assessment & Plan (08/21/2022 6:32 PM EDT): Target reading 130/80. Amlodipine increased to 10 MG. Utilize a humidifier to help control nasal dryness. Gastroesophageal reflux disease 05/11/2021 Assessment & Plan (08/21/2022 6:33 PM EDT): Begin taking Protonix 40 MG. Resolved Problems Problem Noted Date Diagnosed Date Resolved Date Pulmonary emphysema 05/11/2021 11/18/19 23 Assessment & Plan (08/21/2022 6:34 PM EDT): Follow up with pulmonology for monitoring of care. Encounters Date Type Department Care Team Description 11/18/2024 Refill [facility] MED[facility] [address] [place], [place] [address] Lucian Giles PA RLS (restless legs syndrome) 11/14/2024 Telephone [facility] [address] [place], [place] [address] Kristyn Valle, DO Med Refill 11/14/2024 Refill [facility] MED[facility] [address] [place] [address] Kristyn Valle, DO Chronic pain of both knees from Last 3 Months Immunizations Immunization Administration Dates Next Due COVID-19 (MODERNA) 1st,2nd,3 rd Dose Monovalent 03/07/2021,02/07/2021 Flu Vaccine Intradermal Quad 18-64YR 05/03/2015 Flu Vaccine Quad PF >36MO 02/07/2019,03/24/2018, 03/25/2017 Fluzone >6mos 06/12/2024 Fluzone (or Fluarix & Flulav al for VFC) >6mos 06/19/2023,05/11/2021,03/11/2020,02/07,03/24/2018,03/25/2017 Influenza Seasonal Injectable 05/03/2015 Pneumococcal Conjugate 20-Va lent (PCV20) 06/19/2023 Pneumococcal Polysaccharide (PPSV23) 05/11/2021 Tdap 02/20/2024 Family History Medical History Relation Name Comments COPD Father Heart disease Father Heart disease Mother Relation Name Status Comments Father Mother Social History Tobacco Use Types Packs/Day Years Used Date Smoking Tobacco: Former Cigarettes 2 15 1 965 - 1980 Smokeless Tobacco: Never Tobacco Cessation:Counseling Given: Not Answered Alcohol Use Standard Drinks/Week Comments Yes 0 [...] Sign Reading Time Taken Comments Blood Pressure 140/90 09/01/2024 3:38 PM EDT Pulse 77 09/01/2024 3:38 PM EDT Temperature 36.8 C (98.2 F) 09/01/2024 3:38 PM EDT Respiratory Rate 16 09/01/2024 3:38 PM EDT Oxygen Saturation 97% 09/01/2024 3:38 PM EDT Inhaled Oxygen Concentration - - Weight 85.5 kg (188 lb 8 oz) 09/01/2024 3:38 PM EDT Height 172.7 cm (5' 8 ) 09/01/2024 3:38 PM EDT Body Mass Index 28.66 09/01/2024 3:38 PM EDT Plan of Treatment Upcoming Encounters Date Type Department Care Team (Late st Contact Info) Description 12/11/2024 8:00 AM EDT Office Visit [facility] [address] [place], [place] [address] Kristyn Valle DO [address] [place], [place] [address] Health Maintenance Due Date Last Done Comments COLOGUARD 12/04/2011 COLON CANCER SCREENING 5 YEA R SIGMOIDOSCOPY 12/04/2011 COLONOSCOPY 12/04/2011 COLORECTAL CANCER SCREENING 12/04/2011 CT COLONOGRAPHY 12/04/2011 FECAL OCCULT BLOOD TEST 12/04/2011 FIT Testing (1 year) 12/04/2011 ZOSTER VACCINE (1 of 2) 2016 ANNUAL PHYSICAL 05/11/2021 COVID-19 Vaccine (3 - 2023-2 5 season) 2024 03/07/2021, 02/07/2021 LIPID PANEL 06/19/2024 06/19/2023, 12/10, 11/11/2021, Additional history exists INFLUENZA VACCINE 12/09/2024 06/12/2024, , 05/11/2021, Additional history exists TDAP/TD VACCINES (2 - Td or Tdap) 02/19/2034 024 HEPATITIS C SCREENING Completed 05/11/2021 Pneumococcal Vaccine 50+ Completed 06/19/2023, 06/2020 Procedures Procedure Name Priority Date/Time Associated Diagnosis Comments LIPID PANEL Routine 06/19/2023 11:45 AM EST Mixed hyperlipidemia HEPATITIS C ANTIBODY Routine 05/11/2021 9:53 AM EST Need for hepatitis C screening test from Last 3 Months or Most Recently Relevant to Health Maintenance Results * (ABNORMAL) Lipid Panel (06/19/2023 11:45 AM EST) Total Cholesterol 251(H) 100 - 199 mg/dL [facility] Triglycerides 308(H) 0 - 149 mg/dL [facility] HDL Cholesterol 34(L) >39 mg/dL [facility] VLDL Cholesterol Reyes 58(H) 5 - 40 mg/dL [facility] LDL Chol Calc (NIH) 159(H) 0 - 99 mg/dL [facility] Blood 06/19/2023 11:4 5 AM EST 06/19/2023 Narrative [facility] ([facility]) - 06/20/2023 8:18 AM EST Performed at: [address] [id number] Journeyman Machinist: Kevin Vegas PhD, Phone: [phone] Patient Fasting: Y Lucian URIBE LAB BLOOD ORDERABLES Final Res ult [facility]) [address] [place] [address], [facility] [address] [place] [address], * Hepatitis C Antibody (05/11/2021 9:53 AM EST) Pathologist [facility] Hep C Virus Ab 0.2 0.0 - 0.9 s/co ratio [facility] Comment: Negative: < 0.8 Indeterminate: 0.8 - 0.9 Positive: > 0.9 The CDC recommends that a positive HCV antibody result be followed up with a HCV Nucleic Acid Amplification test (577394). Blood 05/11/2021 9:53 AM EST 05/11/2021 [facility] ([facility]) - 05/12/2021 7:09 AM EST Performed at: 03 - [address] [id number] Journeyman Machinist: Kevin Vegas PhD, Phone: [phone] Patient Fasting: Y Kristyn Valle DO LAB BLOOD ORDERABLES Final Result [facility] [address] [place] [address], [place] [phone] [facility] [address] [place] [address], from Last 3 Months or Most Recently Relevant to Health Maintenance Insurance [facility] Care Teams Piano Maker Relationship Specialty Start Date End Date Kristyn Valle DO [address] [place] [address] PCP - General Family Medicine 05/11/21
--- OUTSIDE RECORDS SUMMARY | 2024-12-08 07:09 | XMS_ITS | Encounter Summary ---
[facility] Address [address] [place] [address] Care Team Providers Care Flange Machine Operator Name Role Phone Kristyn Valle DO Primary Care Provider +1- [phone] Reason for Visit * Reason Onset Date Comments Med Refill 11/14/2024 Encounter Details Date Type Department Care Team (Late st Contact Info) Description 11/14/2024 Refill [facility] [address] [place] [address] Kristyn Valle DO [address] [address] Chronic pain of both knees Social History Tobacco Use Types Packs/Day Years [...] encounter Miscellaneous Notes * Telephone Encounter - Gloria Caballero RegSched Rep - 11/14/2024 4:17 PM EDT Caller: SINAI PICKARD Relationship: Emergency Contact Best call back number: [phone] Requested Prescriptions: Requested Prescriptions Pending Prescriptions Disp Refills traMADol (ULTRAM) 50 MG tablet 30 tablet 2 Sig: Take 1 tablet by mouth Every 8 (Eight) Hours As Needed for Moderate Pain. Pharmacy where request should be sent: [facility] [address] [place] [address] - [facility] [phone] - [phone] FX Last office visit with prescribing clinician: 06/12/2024 Last telemedicine visit with prescribing clinician: Visit date not found Next office visit with prescribing clinician: 12/11/2024 Additional details provided by patient: Does the patient have less than a 3 day supply: [x] Yes [] No Would you like a call back once the refill request has been completed: [] Yes [x] No If the office needs to give you a call back, can they leave a voicemail: [] Yes [x] No Laura Mariee 11/14/24 16:18 EDT documented in this encounter Plan of Treatment Upcoming Encounters Date Type Department Care Team (Late st Contact Info) Description 12/11/2024 8:00 AM EDT Office Visit [facility] [address] [place] [address] Kristyn Valle DO [address] [place] [address] documented as of this encounter Visit Diagnoses Diagnosis Chronic pain of both knees documented in this encounter Care Teams Flange Machine Operator Relationship Specialty Start Date End Date Kristyn Valle DO [address] [place] [address] PCP - General Family Medicine 05/11/21 documented as of this encounter
--- OUTSIDE RECORDS SUMMARY | 2024-12-08 07:09 | XMS_ITS | Encounter Summary ---
[facility] Organization [facility] Address [address] [place] [address] Care Team Providers Care Drilling Supervisor Name Role Phone Kristyn Valle DO Primary Care Provider +1- [phone] Reason for Visit * Reason Comments Med Refill Encounter Details Date Type Department Care Team (Late Contact Info) Description 11/18/2024 Refill [facility] MEDICINE [address] [place] [address] Lucian Giles PA [address] [place] [address] RLS (restless legs syndrome) Social History Tobacco Use Types Packs/Day Years Used Date Smoking Tobacco: Former Cigarettes 2 15 1 965 - 1979 Smokeless Tobacco: Never Alcohol Use Standard Drinks/Week [...] on file documented as of this encounter Plan of Treatment Upcoming Encounters Date Type Department Care Team (Late Contact Info) Description 12/11/2024 8:00 AM EDT Office Visit [facility] MEDICINE [address] [place] [address] Kristyn Valle DO [address] [place] [address] documented as of this encounter Visit Diagnoses Diagnosis RLS (restless legs syndrome) Restless legs syndrome (RLS) documented in this encounter Care Teams Drilling Supervisor Relationship Specialty Start Date End Date Kristyn Valle DO [address] [place] [address] PCP - General Family Medicine 05/11/21 documented as of this encounter
--- NOTE | 2024-12-08 07:30 | CT_ITS ---
FINAL REPORT CLINICAL HISTORY: lung cancer screening. smoker for 23 years. copd and chf FINDINGS: CTDI vol (mGy): 2.90 DLP: 106.[address] images of the chest were obtained using the low-dose protocol for screening. There are mild to moderate coronary artery calcifications. There is no evidence of mediastinal or hilar mass or adenopathy. No axillary mass or adenopathy is identified. On the lung window images, no pulmonary mass or suspicious nodule is identified. There are advanced changes of centrilobular emphysema with bulla formation in the upper lobes. Scarring is seen in the right middle lobe and lingula. Limited imaging of the upper abdomen demonstrates a 2 mm, nonobstructing stone in the superior pole of the right kidney on image 86 of series 3 IMPRESSION: Advanced changes of centrilobular emphysema. Nonobstructing right renal stone. Mild to moderate coronary artery calcifications. Lung RADS category 2S. Recommend 12 month followup low-dose CT for further evaluation. Reviewed, Interpreted and Dictated by Javed Calixto MD Transcribed by Zhanna Arredondo Authenticated and [facility]
[2024-12-08 08:45] VITALS: PULSE 69; PULSE 78
[2024-12-08] MEDS: ALBUTEROL 0.083% 2.5 MG/3 ML NEB IH (08:45)
== END 2024-12-08 23:59 | disposition home or self-care (01) ==
LOC: RAD 07:08
PROVIDERS: PCP Family Medicine Sports Medicine; Visit Provider Internal Medicine Pulmonary Disease
DX: I25.10 Atherosclerotic heart disease of native coronary artery without angina pectoris (principal); J43.2 Centrilobular emphysema; N20.0 Calculus of kidney; J44.9 Chronic obstructive pulmonary disease, unspecified; F17.200 Nicotine dependence, unspecified, uncomplicated; Z12.2 Encounter for screening for malignant neoplasm of respiratory organs
CPT/HCPCS: 71271; 94060; 94618; 94640; 94726; 94729

== ENCOUNTER 2024-12-22 14:50 | Outpatient (CLI) | payer OTHER, SELFPAY ==
--- OUTSIDE RECORDS SUMMARY | 2024-12-22 14:53 | XMS_ITS | Encounter Summary ---
[facility] Address [address] [place] [address] Care Team Providers Care Day Camp Counselor Name Role Phone Kristyn Valle DO Primary Care Provider +1- [phone] Reason for Visit * Reason Comments Med Refill Encounter Details Date Type Department Care Team (Late st Contact Info) Description 11/18/2024 Refill [facility] [address] [place] [address] Lucian Giles PA [address] [facility] [place] [address] RLS (restless legs syndrome) Social History [...] as of this encounter Plan of Treatment Not on file documented as of this encounter Visit Diagnoses Diagnosis RLS (restless legs syndrome) Restless legs syndrome (RLS) documented in this encounter Care Teams Day Camp Counselor Relationship Specialty Start Date End Date Kristyn Valle DO [address] [place] [address] PCP - General Family Medicine 05/11/21 documented as of this encounter
--- OUTSIDE RECORDS SUMMARY | 2024-12-22 14:53 | XMS_ITS | Clinical Summary ---
[facility] Address [address] [place] [address] Care Team Providers Care Nursing Education Consultant Name Role Phone Kristyn Valle Primary Care [...] bedtime. 90 tablet 1 11/19/19 25 Active Active Problems Problem Noted Date Diagnosed Date Asthma-COPD overlap syndrome 11/17/2022 H/O non-ST elevation myocardial infarction (NSTE VA) 08/27/2022 Primary hypertension 05/11/2021 Assessment & Plan [...] Type Department Care Team Description 11/18/2024 Refill [facility] [address] [place] [address] Lucian Giles PA RLS (restless legs syndrome) 11/14/2024 Telephone [facility] [address] [place] [address] Kristyn Valle DO Med Refill 11/14/2024 Refill [facility] [address] [place] [address] Kristyn Valle, Chronic pain of both knees from Last [...] 1 965 - 1979 Smokeless Tobacco: Never Tobacco Cessation:Counseling Given: Not [...] 09/01/2024 3:38 PM EDT Plan of Treatment Health Maintenance [...] 2024 03/07/2021, 02/07/2021 LIPID PANEL 06/19/2024 06/19/2023, 0712/2022, 11/11/2021, Additional history exists INFLUENZA VACCINE 03/11/2025 06/12/2024, , 05/11/2021, Additional history exists TDAP/TD [...] 11:4 5 AM EST 06/19/2023 Narrative [facility]) - 06/20/2023 8:18 AM EST Performed at: [facility] [address] [id number] Wire Twister: Kevin Vegas PhD, Phone: [phone] Patient Fasting: Y Lucian URIBE LAB BLOOD ORDERABLES Final Res ult [facility] [address] [place] [address], [place] [phone] [facility] [address] [place] [address], [place] [phone] * Hepatitis C Antibody (05/11/2021 9:53 AM EST) Hep C Virus Ab 0.2 0.0 - 0.9 s/co ratio [facility] Comment: Negative: < 0.8 Indeterminate: 0.8 - 0.9 Positive: > 0.9 The CDC recommends that a positive HCV antibody result be followed up with a HCV Nucleic Acid Amplification test ([id number]). Blood 05/11/2021 9:53 AM EST 05/11/2021 Narrative [facility] (AMBULATORY) - 05/12/2021 7:09 AM EST Performed at: 03 - [facility] [address] [place] [id number] Wire Twister: Kevin Vegas PhD, Phone: [phone] Patient Fasting: Y Kristyn Valle DO LAB BLOOD ORDERABLES Final Result Performing Organization Address [facility] de Phone Number [facility] (AMBULATORY) [address] [place] [address], [place] [phone] [facility] [address] [place] [address], [place] [phone] from Last 3 Months or Most Recently Relevant to Health Maintenance Insurance [facility] Care Teams Nursing Education Consultant Relationship Specialty Start Date End Date Kristyn Valle DO [address] [place] [address] PCP - General Family Medicine 05/11/21
--- OUTSIDE RECORDS SUMMARY | 2024-12-22 14:53 | XMS_ITS | Clinical Summary ---
Author Organization [facility] ([place], [place], [place], [place]) Address [address] [place] [address] Care Team Providers Care Instrument Designer Name Role Phone Kristyn Valle DO Primary Care Provider Allergies No known active allergies Medications amLODIPine [...] Date Justin rded Speak language other than Bengali at home Not on file 06/29/2023 Want [...] (Zoster) (1 of 2) 2016 COVID-19 VACCINE ( season) 2024, 02/07/2021 Influenza Vaccine (#1) 2025 Tobacco Cessation Counseling and Screening (12+) 02/19/2025 02/20/2024 DTAP/TDAP/TD VACCINES (2 - Td or Tdap) 02/19/2034 Pneumococcal 50+ years Completed 06/19/2023, 2020 Advance Directives For more information, please contact: [phone] * Full Code (Latest Code Status on File) Date Activated Date Inactivated Comments 07/18/2022 3:49 PM 07/19/2022 2:16 PM * Full Code Date Activated Date Inactivated Comments 07/18/2022 1:28 PM 07/18/2022 3:48 PM If no pulse: N o intervention If has pulse: Use intubation, mechanical ventilation, defibrillation, ACLS medications, or cardioversion as indicated. Call SENIOR PATROL AGENT * Full Code Date Activated Date Inactivated Comments 07/18/2022 12:23 PM 07/18/2022 1:27 PM Care Teams Instrument Designer Relationship Specialty Start Date End Date Kristyn Valle DO [address] [place] [address] PCP - General Family Medicine 07/19/22
--- OUTSIDE RECORDS SUMMARY | 2024-12-22 14:53 | XMS_ITS | Encounter Summary ---
[facility] Address [address] [place] [address] Care Team Providers Care Clinical Laboratory Director Name Role Phone Kristyn Valle DO Primary Care Provider +1- [phone] Reason for Visit * Reason Onset Date Comments Med Refill 11/14/2024 Encounter Details Date Type Department Care Team (Late st Contact Info) Description 11/14/2024 Telephone [facility] [address] [facility] [place] [address] Kristyn Valle DO [address] [facility] [facility] [place] [address] Med Refill Social History Tobacco [...] Relationship: Emergency Contact Best call back number: [phone] What medication are you requesting: rOPINIRole (REQUIP) If a prescription is needed, what is your preferred pharmacy and phone number: [facility] [place], [place] - [address] [facility] [phone] [facility] [phone] FX Additional notes:PATIENTS SPOUSE STATES THE PATIENT IS REQUESTING THE NEXT DOSE AND A REFILL ON THEPRESCRIPTION documented in this encounter Plan of Treatment Not on file documented as of this encounter Visit Diagnoses Diagnosis RLS (restless legs syndrome) Restless legs syndrome (RLS) documented in this encounter Care Teams Clinical Laboratory Director Relationship Specialty Start Date End Date Kristyn Valle DO [address] [place] [address] PCP - General Family Medicine 05/11/21 documented as of this encounter
--- OUTSIDE RECORDS SUMMARY | 2024-12-22 14:53 | XMS_ITS | Encounter Summary ---
[facility] Organization [facility] Address [address] [place] [address] Care Team Providers Care Social Media Marketing Analyst Name Role Phone Kristyn Valle DO Primary Care Provider +1- [phone] Reason for Visit * Reason Onset Date Comments Med Refill 11/14/2024 Encounter Details Date Type Department Care Team (Late st Contact Info) Description 11/14/2024 Refill [facility] [address] [facility] [place] [address] Kristyn Valle DO [address] [facility] [place] [address] Chronic pain of both knees [...] Relationship: Emergency Contact Best call back number: [phone] Requested Prescriptions: Requested Prescriptions Pending Prescriptions Disp Refills traMADol (ULTRAM) 50 MG tablet 30 tablet 2 Sig: Take 1 tablet by mouth Every 8 (Eight) Hours As Needed for Moderate Pain. Pharmacy where request should be sent: [facility] [address] [place] [address] - [address] [facility] [phone] - [phone] FX Last office visit with prescribing clinician: [...] knees documented in this encounter Care Teams Social Media Marketing Analyst Relationship Specialty Start Date End Date Kristyn Valle [place] [address] PCP - General Family Medicine 05/11/21 documented as of this encounter
--- OUTSIDE RECORDS SUMMARY | 2024-12-22 14:53 | XMS_ITS | Referral Summary ---
Author Organization [employer] ([place], [place], [place], [place]) Address [address] [place] [address] Care Team Providers Care Platemaker Name Role Phone Kristyn Valle DO Primary Care Provider [phone] Allergies No known active allergies Medications amLODIPine [...] Date Justin rded Speak language other than Croatian at home Not on file 06/29/2023 Want [...] Advance Directives For more information, please contact: [phone] * Full Code (Latest Code Status on File) Date Activated Date Inactivated Comments 07/18/2022 3:49 PM 07/19/2022 2:16 PM * Full Code Date Activated Date Inactivated Comments 07/18/2022 1:28 PM 07/18/2022 3:48 PM If no pulse: N o intervention If has pulse: Use intubation, mechanical ventilation, defibrillation, ACLS medications, or cardioversion as indicated. Call [facility] * Full Code Date Activated Date Inactivated Comments 07/18/2022 12:23 PM 07/18/2022 1:27 PM Care Teams Platemaker Relationship Specialty Start Date End Date Kristyn Valle DO [address] [place] [address] PCP - General Family Medicine 07/19/22
[2024-12-27 02:27] LABS: I006-IgE Cockroach, German 0.24 kU/L (Class 0/I); T006-IgE Cedar, Mountain <0.10 kU/L (Class 0); T007-IgE Oak, White <0.10 kU/L (Class 0); T008-IgE Elm, American <0.10 kU/L (Class 0); T015-IgE Ash, White <0.10 kU/L (Class 0); T022-IgE Pecan, Hickory <0.10 kU/L (Class 0); W001-IgE Ragweed, Short <0.10 kU/L (Class 0); W011-IgE Thistle, Russian <0.10 kU/L (Class 0); W014-IgE Pigweed, Common <0.10 kU/L (Class 0)
== END 2024-12-22 23:59 | disposition home or self-care (01) ==
LOC: LAB 14:51
PROVIDERS: PCP Family Medicine; Visit Provider Internal Medicine Pulmonary Disease
DX: J30.9 Allergic rhinitis, unspecified (principal); J43.9 Emphysema, unspecified; R91.8 Other nonspecific abnormal finding of lung field
CPT/HCPCS: 36415; 82103; 82104; 82785; 86003; 86480